=== PATIENT | male | born 1970 | race Caucasian/White ===

== ENCOUNTER 2021-11-14 10:43 | Outpatient (CLI) | payer OTHER, SELFPAY ==
[2021-11-14] MEDS: Inhaler, Assist Device 1 EACH MC (11:08)
[2021-11-14] MEDS: Albuterol HFA 18 GM 200 PUFF INH IH (11:08)
--- OUTSIDE RECORDS SUMMARY | 2021-11-16 10:45 | XMS_ITS | Encounter Summary ---
:1970 Author Organization [facility] [place] [address] Care Team Providers Name Role Phone Cresencio Angel DO Primary Care Provider Encounter Details Date Type Department Care Team Description 02/03/2019 Telephone Orthopaedics at [facility] [place] Sotelo, [employer] [place] [address] Social History Tobacco Use Types Packs/Day Years Used Date Former Smoker Cigarettes Quit: 02/07/20 Smokeless Tobacco: Former User Chew Q uit: 02/07/2004 Comments: 02/07/04 Alcohol Use Standard Drinks/Week Comments Not Currently 1 (1 standard drink = 0.6 oz pure alcoho l) very rarely Alcohol Habits Answer Date Recorded How often do you have a drink containing alcohol? Not asked How many drinks containing alcohol do you have on a Not aske d typical day when you are drinking? How often do you have six or more drinks on one occasion? No t asked Comment: very rarely 05/02/2018 Sex Assigned at Date Recorded Not on file documented as of this encounter Plan of Treatment Not on filedocumented as of this encounter Visit Diagnoses Not on filedocumented in this encounter Care Teams Brick Kiln Worker Relationship Specialty Start Date End Date Cresencio Angel DO PCP - General Internal Medicine 04/24/[address] [place] [id number] documented as of this encounter
--- OUTSIDE RECORDS SUMMARY | 2021-11-16 10:45 | XMS_ITS | Encounter Summary ---
:1970 Author Organization [facility] [place] [address] Care Team Providers Name Role Phone Cresencio Angel DO Primary Care Provider Encounter Details Date Type Department Care Team Description 07/26/2021 [place] [address] Social History Tobacco Use Types Packs/Day Years [...] on file documented as of this encounter Medications at Time of Discharge Medication Sig Dispensed Refills Start Date End Date clindamycin (Cleocin) 150 mg take 3 capsules 0 Capsule (450 MG) by mouth four times a day for 7 days for STAPH INFECTION metroNIDAZOLE (Flagyl) 500 mg take 4 tablets by 0 07/02/2019 Tablet mouth A ONE TIME DOSE RIGHT NOW meloxicam (MOBIC) 7.5 mg Take 1 tablet by 30 tablet 3 10/01 TabletIndications: Right mouth daily. ankle pain, unspecified chronicity, Arthritis of right ankle diclofenac (VOLTAREN) 1 % Apply 4 g 100 g 3 10/02/2019 GelIndications: Arthritis of topically 2 times right ankle daily as needed. HYDROcodone-acetaminophen Take 1 tablet by 20 tablet 0 12/10 (NORCO) 5-325 mg Tablet mouth every 6 hours as needed for Pain. prazosin (MINIPRESS) 1 mg Take 1 mg by mouth 0 Capsule nightly. acetaminophen (TYLENOL) 500 Take 1,000 mg by 0 mg Tablet mouth every 6 hours as needed for Pain. budesonide-formoterol Inhale into the 0 (SYMBICORT) 80-4.5 lungs. mcg/actuation HFA Aerosol Inhaler albuterol 90 mcg/actuation Inhale 2 puffs 0 HFA Aerosol Inhaler into the lungs every 4 hours as needed for Wheezing. Use with spacer omeprazole 20 mg Tablet, Take by mouth. 0 Delayed Release (E.C.) losartan (COZAAR) 50 mg Take 50 mg by 0 Tablet mouth daily. hydroCHLOROthiazide Take 25 mg by 0 (HYDRODIURIL) 25 mg Tablet mouth daily. documented as of this encounter Plan of Treatment Not on filedocumented as of this encounter Procedures Procedure Name Priority Date/Time Associated Diagnosis Comme [facility] SURGICAL PATHOLOGY Routine 07/26/2021 3:48 PM Res ults for this REPORT EDT procedure are i n the results section. documented in this encounter Results Surgical Pathology Report (07/26/2021 3:48 PM EDT) Component Value Ref Test Analysis Performed At [facility] Range Method Time Signature Surgical [id number] ? Location: [facility] Pathology [place] Report The signing pathologist has (i) examined the relevant preparation(s) for the [facility] specimen(s) and (ii) rendered or confirmed the diagnosis(es) . HOSPITAL LABORATORY . ?Surgic al Pathology DIAGNOSIS Left great toe, nail clippings: - ??Numerous PAS-positive fu ngal spore and hyphal forms, consistent with onychomycosis Electronically signed by: ?Gamaliel STRINGER, PhD, Elizabeth Verified: ??08/02/2021 15:13 ??Dermatopathologist Performed at: ??-[facility] [place], [place], [place] SPECIMEN(S) SUBMITTED A - left great toenail clippings Referring Identifier: ??[id number] CLINICAL INFORMATION Onychomycosis SPECIMEN PROCESSING A - Labeled/Fixative: Patient demographics, fresh. Quantity/Size: Fragments, aggregating 2.1 x 1.2 x 0.3 cm. Tissue Description: Granular, yellow-white nail clippings. Sections/Processing: Medical Receptionist Biller sections in 1 cassette labeled A1. ??pps Specimen (Source) Anatomical Collection Method Collection Time Re ceived Time Location / / Volume Laterality 07/26/2021 3:48 PM EDT Resulting Agency Comment Spec In Lab / WKS Becky Angulo DPM PATHOLOGY/CYTOLOGY ORDERABLE S Performing Organization Address City/State/[place] [address] documented in this encounter Visit Diagnoses Not on filedocumented in this encounter Care Teams Netbackup Engineer Relationship Specialty Start Date End Date Cresencio Angel DO PCP - General Internal Medicine 04/24/18 [address] [place] [address] documented as of this encounter
--- OUTSIDE RECORDS SUMMARY | 2021-11-16 10:45 | XMS_ITS | Encounter Summary ---
:1970 Author Organization [facility] [place] [address] Care Team Providers Name Role Phone Cresencio Angel DO Primary Care Provider Encounter Details Date Type Department Care Team Description 10/02/2019 Hospital Encounter XRay at [place] Cortney Egan S/P Right tib/fib osteotomy, ringed external fixator placement, 06/16/18 (Dr Egan); 1 [facility] [address] Reny MD Right ankle pain, unspecified chronicity [facility] [id number] [place] [phone] [place] [address] Social History Tobacco Use Types Packs/Day Years Used Date Former Smoker Cigarettes Quit: 02/07/20 04 Smokeless Tobacco: Former User Chew Q uit: [...] Procedure Name Priority Date/Time Associated Diagnosis Comme nts XR TIBIA FIBULA Routine 10/02/2019 8:31 AM S/P Right tib/fib R esults for this RIGHT EDT osteotomy, ringed procedure are in external fixator the results placement, 06/16/18 section. (Dr Egan) XR ANKLE MIN 3 Routine 10/02/2019 8:31 AM Right ankle pain, Re sults for this VIEWS RIGHT EDT unspecified procedure are i n chronicity the results section. documented in this encounter Results XR Ankle Min 3 views Right (Generic) (10/02/2019 8:31 AM EDT) Anatomical Region Laterality Modality Ankle Right Digital Radiography Specimen (Source) Anatomical Location Collection Method / Collectio n Time Received Time / Laterality Volume Impressions 10/02/2019 9:18 AM EDT 1. ??Unchanged appearance of healed tibial osteotomy, tibial fracture and fibular fractures. 2. ??Congruent ankle mortise and no larg e effusion. Thank you for letting us participate in the care of this patient. For questions regarding this report, please contact e number below. ? Narrative 10/02/2019 9:18 AM EDT EXAMINATION: XR ANKLE MIN 3 VIEWS RIGHT (GENERIC), XR TIBIA FIBULA RIGHT (GENERIC) CLINICAL HISTORY: right ankle pain s/p e x fix removal, , entered by ordering service TECHNIQUE: Right ankle, 3 (accession [id number]), 2 (accession [id number]) views Right tibia and fibula, 2 views COMPARISON: Tibial fibular radiographs, March 2019. FINDINGS: Bones * ??Tibia-history of corrective osteotom y for malunion of tibial fracture. The osteotomy line is completely obliterated . The deformity at the fracture site is unchanged. There are ghost screw tracts in distal tibial shaft. * ??Fibula-malunited proximal fibular sh aft fracture redemonstrated. * ??Calcaneus-irregular posterior superi or calcaneal tuberosity could be related to remote healed injury. Joints * ??Tibiotalar joint-congruent ankle mor tise. No large effusion. * ??Subtalar joint-relative preserved yanira int spaces. Soft tissues Unchanged multiple metallic bodies in th e proximal calf at humeral fracture sites. Soft tissue swelling in the calf and ankle. Procedure Note Danyell Perez MD - 10/02/2019Formatt ing of this note might be different from the original. EXAMINATION: XR ANKLE MIN 3 VIEWS RIGHT (GENERIC), XR TIBIA FIBULA RIGHT (GENERIC) CLINICAL HISTORY: right ankle pain s/p e x fix removal, , entered by ordering service TECHNIQUE: Right ankle, 3 (accession [id number]), 2 (accession [id number]) views Right tibia and fibula, 2 views COMPARISON: Tibial fibular radiographs, March 2019. FINDINGS: Bones * Tibia-history of corrective osteotomy for malunion of tibial fracture. The osteotomy line is completely obliterated . The deformity at the fracture site is unchanged. There are ghost screw tracts in distal tibial shaft. * Fibula-malunited proximal fibular shaf t fracture redemonstrated. * Calcaneus-irregular posterior superior calcaneal tuberosity could be related to remote healed injury. Joints * Tibiotalar joint-congruent ankle morti se. No large effusion. * Subtalar joint-relative preserved join t spaces. Soft tissues Unchanged multiple metallic bodies in th e proximal calf at humeral fracture sites. Soft tissue swelling in the calf and ankle. IMPRESSION 1. Unchanged appearance of healed tibial osteotomy, tibial fracture and fibular fractures. 2. Congruent ankle mortise and no large effusion. Thank you for letting us participate in the care of this patient. For questions regarding this report, please contact [facility] number below. Cortney Egan MD IMG DX ORDERABLES XR Tibia Fibula Right (Generic) (10/02/2019 8:31 AM EDT) Anatomical Region Laterality Modality Right Digital Radiography Specimen (Source) Anatomical Location Collection Method / Collectio n Time Received Time / Laterality Volume Impressions 10/02/2019 9:18 AM EDT 1. ??Unchanged appearance of healed tibial osteotomy, tibial fracture and fibular fractures. 2. ??Congruent ankle mortise and no larg e effusion. Thank you for letting us participate in the care of this patient. For questions regarding this report, please contact [facility] number below. ? Narrative 10/02/2019 9:18 AM EDT EXAMINATION: XR ANKLE MIN 3 VIEWS RIGHT (GENERIC), XR TIBIA FIBULA RIGHT (GENERIC) CLINICAL HISTORY: right ankle pain s/p e x fix removal, , entered by ordering service TECHNIQUE: Right ankle, 3 (accession [id number]), 2 (accession [id number]) views Right tibia and fibula, 2 views COMPARISON: Tibial fibular radiographs, March 2019. FINDINGS: Bones * ??Tibia-history of corrective osteotom y for malunion of tibial fracture. The osteotomy line is completely obliterated . The deformity at the fracture site is unchanged. There are ghost screw tracts in distal tibial shaft. * ??Fibula-malunited proximal fibular sh aft fracture redemonstrated. * ??Calcaneus-irregular posterior superi or calcaneal tuberosity could be related to remote healed injury. Joints * ??Tibiotalar joint-congruent ankle mor tise. No large effusion. * ??Subtalar joint-relative preserved yanira int spaces. Soft tissues Unchanged multiple metallic bodies in th e proximal calf at humeral fracture sites. Soft tissue swelling in the calf and ankle. Procedure Note Danyell Perez MD - 10/02/2019Formatt ing of this note might be different from the original. EXAMINATION: XR ANKLE MIN 3 VIEWS RIGHT (GENERIC), XR TIBIA FIBULA RIGHT (GENERIC) CLINICAL HISTORY: right ankle pain s/p e x fix removal, , entered by ordering service TECHNIQUE: Right ankle, 3 (accession [id number]), 2 (accession [id number]) views Right tibia and fibula, 2 views COMPARISON: Tibial fibular radiographs, March 2019. FINDINGS: Bones * Tibia-history of corrective osteotomy for malunion of tibial fracture. The osteotomy line is completely obliterated . The deformity at the fracture site is unchanged. There are ghost screw tracts in distal tibial shaft. * Fibula-malunited proximal fibular shaf t fracture redemonstrated. * Calcaneus-irregular posterior superior calcaneal tuberosity could be related to remote healed injury. Joints * Tibiotalar joint-congruent ankle morti se. No large effusion. * Subtalar joint-relative preserved join t spaces. Soft tissues Unchanged multiple metallic bodies in th e proximal calf at humeral fracture sites. Soft tissue swelling in the calf and ankle. IMPRESSION 1. Unchanged appearance of healed tibial osteotomy, tibial fracture and fibular fractures. 2. Congruent ankle mortise and no large effusion. Thank you for letting us participate in the care of this patient. For questions regarding this report, please contact [facility] number below. Cortney Egan MD IMG DX ORDERABLES documented in this encounter Visit Diagnoses Diagnosis S/P Right tib/fib osteotomy, ringed exte rnal fixator placement, 06/16/18 (Dr Egan) Right ankle pain, unspecified chronicity documented in this encounter Care Teams Handstitching Machine Collar Feller Relationship Specialty Start Date End Date Cresencio Angel DO PCP - General Internal Medicine 04/24/[address] [place] [address] documented as of this encounter
--- OUTSIDE RECORDS SUMMARY | 2021-11-16 10:45 | XMS_ITS | Encounter Summary ---
:1970 Author Organization [facility] [place] [address] Care Team Providers Name Role Phone Cresencio Angel DO Primary Care Provider Reason for Visit Reason Onset Date Comments Follow-up 10/05/2019 Encounter Details Date Type Department Care Team Description 10/05/2019 Telephone Orthopaedics at [facility] Cortney Egan MD Follow-up [facility] [place] [address] ORTHOPAEDIC SURGERY [phone] [place] [phone] (Wo rk) Social History Tobacco Use Types Packs/Day Years [...] on file documented as of this encounter Miscellaneous Notes Telephone Encounter - Scarlett Ridley - 10/09/2019 8:24 AM EDT Letter sent Telephone Encounter - Scarlett Ridley - 10/07/2019 10:43 AM EDT LM#2 for patient to return call to schedule 3 month follow up with [address]. Egan or Team around 01/02/2020. Dec 2019 with standing alignment and 3 view ankle xray WB (XRAY PRIOR) ? Ask if patient is going to proceed with fluoro injection and schedule if he is. Telephone Encounter - Scarlett Ridley - 10/05/2019 9:19 AM EDT LM#1 for patient to return call to schedule 3 month follow up with Dr. Egan or Team around 01/02/2020. Dec 2019 with standing alignment and 3 view ankle xray WB (XRAY PRIOR) Ask if patient is going to proceed with fluoro injection and schedule if he is. documented in this encounter Plan of Treatment Not on filedocumented as of this encounter Visit Diagnoses Not on filedocumented in this encounter Care Teams Communications Maintainer Relationship Specialty Start Date End Date Cresencio Angel DO PCP - General Internal Medicine 04/24/18 [address] [place] [address] documented as of this encounter
--- OUTSIDE RECORDS SUMMARY | 2021-11-16 10:45 | XMS_ITS | Encounter Summary ---
:1970 Author Organization [facility] Address [facility] [address] [place] [address] Care Team Providers Name Role Phone Cresencio Angel DO Primary Care Provider Reason for Referral Physical Therapy (Routine) - Specialty Diagnoses / Procedures Referred By Contact Refer red To Contact Diagnoses Tibia/fibula fracture, right, open type III, with malunion, subsequent encounter Concetta Hull PA [facility] [place] [address] Referral ID Status Reason Start Date Expiration Date Visits V isits Requested Authorized [id number] Evaluate and 04/03/2019 09/30/2019 1 1 Treat PCP Updated and/or Approved Reason for Visit Reason Comments Left Leg Fracture Removal right tibia external fixator DOS 01/01/2019 DOI 02/07/2004 Encounter Details Date Type Department Care Team Description 04/03/2019 Office Visit Orthopaedics at [facility] [place] Concetta Hull Tibia/fibula [facility] [place] fracture, right, open [address] [employer] type III, [place] [address] arango, subsequent [phone] ORTHOPAEDIC encounter SURGERY [place], [place] [address] Social History Tobacco Use Types Packs/Day Years [...] on file documented as of this encounter Last Filed Vital Signs Vital Sign Reading Time Taken Comments Blood Pressure 129/87 04/03/2019 9:12 AM EST Pulse 69 04/03/2019 9:12 AM EST Temperature - - Respiratory Rate - - Oxygen Saturation - - Inhaled Oxygen Concentration - - Weight 97.5 kg (215 lb) 04/03/2019 9:12 AM EST pt repor dwain Height 172.7 cm (5' 8) 04/03/2019 9:12 AM EST pt repor dwain Body Mass Index 32.69 04/03/2019 9:12 AM EST documented in this encounter Progress Notes Concetta Hull PA - 04/03/2019 9:30 AM EST PATIENT NAME: Sravan Ching AGE: 48 y.o. MR#: [id number] DATE OF VISIT: 04/03/2019 CHIEF COMPLAINT: FU 06/16/18 tib fib osetotomy, external fixator application 01/01/19 Procedure: Removal right tibia external fixator Manipulation right ankle Corticosteroid injection right knee HISTORY OF PRESENT ILLNESS: Mr. Ching is a 48 y.o. male who comes into clinic today for evaluation of the right leg. He was last in to see Dr. Egan in January. Since this time [facility] Unfortunately this is only once per week. He continues to be very limited with hisability to dorsiflex. He is waiting to hear from our clinic regarding the ideal brace. He has physical therapist is wanting to have him start using a Dynasplint at night to help with his dorsiflexion. He feels that his gait is a bit off. He is very happy with his leg appearance. He is impressed with the length of his leg. It even feels a bit longer than the left. Past medical history: Patient Active Problem List Diagnosis Date Noted ??? Tibial deformity, acquired, right 06/16/2018 ??? S/P Right tib/fib osteotomy, ringed external fixator placement, 06/16/18 (Dr Egan) 06/16/2018 ??? Tibia/fibula fracture, right, open type III, with malunion, subsequent encounter 05/02/2018 Medications: ??? HYDROcodone-acetaminophen (NORCO) 5-325 mg Tablet ??? prazosin (MINIPRESS) 1 mg Capsule ??? budesonide-formoterol (SYMBICORT) 80-4.5 mcg/actuation HFA Aerosol Inhaler ??? albuterol 90 mcg/actuation HFA Aerosol Inhaler ??? omeprazole 20 mg Tablet, Delayed Release (E.C.) ??? losartan (COZAAR) 50 mg Tablet ??? hydroCHLOROthiazide (HYDRODIURIL) 25 mg Tablet ??? acetaminophen (TYLENOL) 500 mg Tablet Allergies: No Known Allergies Social history: Social History Tobacco Use ??? Smoking status: Former Smoker Types: Cigarettes Last attempt to quit: 02/07/2004 Years since quittin.1 ??? Smokeless tobacco: Former User Types: Chew Quit date: 02/07/2004 ??? Tobacco comment: 02/07/04 Substance Use Topics ??? Alcohol use: Not Currently Alcohol/week: 1.0 standard drinks Types: 1 Shots of liquor per week Comment: very rarely Review of systems: No chest pain or shortness of breath No fevers, night sweats or chills Vital signs: Blood pressure 129/87, pulse 69, height 172.7 cm (5' 8), weight 97.5 kg (215 lb). Physical exam: Mr. Ching is a 48 y.o. male who is alert and oriented. He is in no acute discomfort and is resting comfortably in the exam room. No erythema, edema, ecchymosis noted. Ankle Plantar flexion 40?? Dorsiflexion 0 actively, passively 5 shy of neutral. ?? Inversion 5?? Eversion 5?? PT/DP pulses 2+. Superficial peroneal, deep peroneal, sural, saphenous, and tibial nerves intact to touch. Imaging studies: X-ray of the left tib-fib were obtained and compared with prior. No change in alignment since previous. I am able to now appreciate a subtle lucency in the area of the fibula fracture. The distal tib-fib has continued to sclerosis. No complication noted. Assessment and plan:: 48 y.o. year-old male post right tib fib osteotomy, with continued struggle with ROM We had a long discussion regarding the nature of Sravan Ching's chief complaint. We reviewed the imaging together X-ray of the left tib-fib were obtained and compared with prior. No change in alignment since previous. I am able to now appreciate a subtle lucency in the area of the fibula fracture. The distal tib-fib has continued to sclerosis. No complication noted. Clinically Sravan Ching skin looks excellent. His ankle range of motion is still limited. He is not able to actively dorsiflex at all. Passively I am only able to get him to 5 degrees shy of neutral. I would like him to increase his physical therapy sessions as he is currently only participating once per week. He is more than willing to attend more PT and would like a separate PT referral so he can [facility] as they are limited in the amount of time that they are able to see him. He will continue seeing his current [place] physical therapist as well as physical [facility]. I have written him a prescription for the dynamic splint as well as the ideal brace. Given him a packet for the ideal brace. I will be discussing this with Dr. gonzalez and we will send a letter to Sravan describing the medical necessity of the ideal brace. We discussed to follow-up in roughly 3 months no x-rays needed. This plan was discussed with the patient and they are in agreement. All of the patient's questions were answered. The patient understand to contact us if they have any other questions or concerns. FU: 3 months, no x-ray Concetta Hull PA-C The above dictation was made with voice recogonition software documented in this encounter Plan of Treatment Scheduled Referrals Name Type Priority Associated Diagnoses Order S chedule Referral to Outpatient Referral Routine Tibia/fibula Ordered: Physical Therapy fracture, right, 020 open type III, with malunion, subsequent encounter documented as of this encounter Visit Diagnoses Diagnosis Tibia/fibula fracture, right, open type III, with malunion, subsequent encounter documented in this encounter Care Teams Range Aide Relationship Specialty Start Date End Date Cresencio Angel DO PCP - General Internal Medicine 04/24/[address] [place] [address] documented as of this encounter
--- OUTSIDE RECORDS SUMMARY | 2021-11-16 10:45 | XMS_ITS | Clinical Summary ---
:1970 Author Organization [facility] [place] [address] Care Team Providers Name Role Phone Cresencio Angel DO Primary Care Provider Allergies No known active allergies Medications Medication Sig Dispensed Refills Start Date End Date Status budesonide-formoterol Inhale into 0 Active (SYMBICORT) 80-4.5 the lungs. mcg/actuation HFA Aerosol Inhaler albuterol 90 mcg/actuation Inhale 2 0 Active HFA Aerosol Inhaler puffs into the lungs every 4 hours as needed for Wheezing. Use with spacer omeprazole 20 mg Tablet, Take by 0 Active Delayed Release (E.C.) mouth. losartan (COZAAR) 50 mg Take 50 mg by 0 Active Tablet mouth daily. hydroCHLOROthiazide Take 25 mg by 0 Active (HYDRODIURIL) 25 mg Tablet mouth daily. acetaminophen (TYLENOL) 500 Take 1,000 mg 0 Active mg Tablet by mouth every 6 hours as needed for Pain. prazosin (MINIPRESS) 1 mg Take 1 mg by 0 Active Capsule mouth nightly. HYDROcodone-acetaminophen Take 1 tablet 20 tablet 0 01/01/2019 Active (NORCO) 5-325 mg Tablet by mouth every 6 hours as needed for Pain. Additional Information Patient taking differently: 1 tablet Oral EVERY 6 HOURS PRN, Pain, 7.5-325, Reported on 01/16/2019 clindamycin (Cleocin) 150 mg take 3 capsules (450 MG) 0 08/14/2019 Active Capsule by mouth four times a day for 7 days for STAPH INFECTION metroNIDAZOLE (Flagyl) 500 mg take 4 tablets by mouth 0 07/02/2019 Active Tablet A ONE TIME DOSE RIGHT NOW meloxicam (MOBIC) 7.5 mg Take 1 tablet by mouth 30 tablet 3 Active TabletIndications: Right daily. ankle pain, unspecified chronicity, Arthritis of right ankle diclofenac (VOLTAREN) 1 % Apply 4 g topically 2 100 g 3 Active GelIndications: Arthritis of times daily as needed. right ankle Active Problems Problem Noted Date Tibial deformity, acquired, right 06/16/2018 S/P Right tib/fib osteotomy, ringed external fixator p lacement, 06/16/18 ( 06/16/2018 Julisa) Tibia/fibula fracture, right, open type III, with darya nion, subsequent 05/02/2018 encounter Family History Medical History Relation Comments No Known Problems Brother Hypertension Father No Known Problems Sister Cancer Neg Hx Diabetes Neg Hx Relation Status Comments Brother Alive Father Alive Mother liver issues Sister Alive Social History Tobacco Use Types Packs/Day Years [...] Assigned at Date Recorded Not on file Last Filed Vital Signs Vital Sign Reading Time Taken Comments Blood Pressure 132/83 10/02/2019 9:37 AM EDT Pulse 68 10/02/2019 9:37 AM EDT Temperature 36.4 ??C (97.6 ??F) 01/16/2019 9:25 AM EST Respiratory Rate 16 01/01/2019 8:11 AM EDT Oxygen Saturation 100% 01/01/2019 5:55 AM EDT Inhaled Oxygen Concentration - - Weight 108.1 kg (238 lb 4.8 oz) 10/02/2019 9:37 AM EDT Height 172.7 cm (5' 8) 10/02/2019 9:37 AM EDT Body Mass Index 36.23 10/02/2019 9:37 AM EDT Plan of Treatment Health Maintenance Due Date Last Done Comments Covid-19 Vaccine (#1) 12/27/1975 HIV screen 1988 Hepatitis C Screening 1988 Lipid Screening 1988 Tdap adult 1989 Tetanus vaccine 1989 Colonoscopy 12/27/2015 Zoster vaccine (1 of 2) 2020 Diabetes Screening (HgbA1C or Glucose) 06/17/2021 9 Influenza (Flu) vaccine (1 of 1 - Influenza standard 11/09/2021 series) Medical Devices Implanted Type Area Supervisor Fishing Device Identifier Shelf Exp iration Model / Date Serial / L ot Center Sleeve For 6mm Half Pin [id number] / Implanted: Qty: 2 on 06/16/2018 by Cortney Egan MD at [facility] / Insurance Payer Benefit Plan / Subscriber ID Effective Dates Phone Addre ss Type Group [facility] [id number] 2018-Pres [id number] [address] [id number] ent [address] [place] [address] [employer]UM [place] [employer] [id number] 2018-Pres [phone] [address] [facility] [id number] [place] [address] Advance Directives Latest Code Status on File Code Status Date Activated Date Inactivated Comments Full Code 06/16/2018 6:14 AM 06/18/2018 7:01 PM Does patient have capacity to make decision: Yes Care Teams Pediatric Physician Assistant Relationship Specialty Start Date End Date Cresencio Angel, DO PCP - General Internal Medicine 04/24/18 [address] [place] [address]
--- OUTSIDE RECORDS SUMMARY | 2021-11-16 10:45 | XMS_ITS | Encounter Summary ---
:1970 Author Organization [facility] [place] [address] Care Team Providers Name Role Phone Cresencio Angel DO Primary Care Provider Encounter Details Date Type Department Care Team Description 02/18/2019 Telephone [place] [facility] [place] [address] Social History Tobacco Use Types Packs/Day [...] this encounter Miscellaneous Notes Telephone Encounter - Serena Sotelo MSW - 02/18/2019 10:48 AM EST OFFICE OF CARE MANAGEMENT CCM Per Dr. Kumar referral for patient to receive an Exosym brace from the [facility] [phone]. They note there is not coverage for brace through his [employer]. Update to Mr. Ching who reports he is 100% service connected disabilty and believes [facility] will [facility] agreed I will contact [facility]. left for Rosa in prosthetics at [facility] [phone] with details and patient's last 4 and requesting return call to orient to process and potential for her to fax order to [facility] fax [phone] who will then evaluate patient and arrange w [facility] for purchase order. PLAN: 1) update to patient and healthcare team pending re contact from [facility]. documented in this encounter Plan of Treatment Not on filedocumented as of this encounter Visit Diagnoses Not on filedocumented in this encounter Care Teams Tire Rebuilder Relationship Specialty Start Date End Date Cresencio Angel DO PCP - General Internal Medicine 04/24/[address] [place] [phone] documented as of this encounter
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
--- OUTSIDE RECORDS SUMMARY | 2021-11-16 10:45 | XMS_ITS | Encounter Summary ---
:1970 Author Organization [facility] Address [facility] [address] Care Team Providers Name Role Phone Stanley Cresencio Jose Eduardo MORA Primary Care Provider Encounter Details Date Type Department Care Team Description 09/29/2019 Orders Only Orthopaedics at [facility] Cortney Egan, S/P Right tib/fib [facility] MD osteotomy, ringed [facility] external fixator [place] [id number] blakely, 06/16/18 ( [phone] ORTHOPAEDIC [place]) SURGERY [place], [place] [address] Social History Tobacco Use Types [...] filedocumented as of this encounter Results XR Tibia Fibula Right (Generic) (10/02/2019 8:31 [...] please contact th e number below. ? Electronically signed by: Danyell Perez [facility] ([phone]), at 10/02/2019 9:18 AM Narrative 10/02/2019 9:18 AM EDT EXAMINATION: XR ANKLE MIN 3 VIEWS RIGHT (GENERIC), XR TIBIA FIBULA RIGHT (GENERIC) CLINICAL HISTORY: right ankle pain s/p e x fix removal, , entered by ordering service TECHNIQUE: Right ankle, 3 (accession [id number]), 2 (accession [id number]) views Right tibia and fibula, 2 views [...] ankle, 3 (accession [id number]), 2 (accession [id number]) views Right tibia and fibula, 2 views [...] For questions regarding this report, please contact [facility] number below. Electronically signed by: Danyell Perez [facility] ([phone]), at 10/02/2019 9:18 AM Cortney Egan MD IMG DX ORDERABLES documented in this encounter Visit Diagnoses Diagnosis S/P Right tib/fib osteotomy, ringed exte rnal fixator placement, 06/16/18 (Dr Egan) S/P Right tib/fib osteotomy, ringed exte rnal fixator placement, 06/16/18 (Dr Egan) Right ankle pain, unspecified chronicity documented in this encounter Care Teams Lead Burner Supervisor Relationship Specialty Start Date End Date Cresencio Angel DO PCP - General Internal Medicine 04/24/[address] [place] [id number] documented as of this encounter
--- OUTSIDE RECORDS SUMMARY | 2021-11-16 10:45 | XMS_ITS | Encounter Summary ---
:1970 Author Organization [facility] Address [facility] [place] [address] Care Team Providers Name Role Phone Cresencio Angel DO Primary Care Provider Encounter Details Date Type Department Care Team Description 04/03/2019 Hospital Encounter XRay [place] [facility] [place]isa, Cortney Tibia/fibula [address] [facility] [address] Reny MD fracture, right, [place], [place] [facility] open type III, with [phone] arango, subsequent [phone] ORTHOPAEDIC [place] [address] Social History Tobacco Use Types Packs/Day Years [...] Sig Dispensed Refills Start Date End Date HYDROcodone-acetaminophen Take 1 tablet by 20 tablet 0 12/10 (NORCO) 5-325 mg Tablet mouth every 6 hours as needed for Pain. prazosin (MINIPRESS) 1 mg Take 1 mg by 0 Capsule mouth nightly. acetaminophen (TYLENOL) 500 mg Take 1,000 mg by 0 Tablet mouth every 6 hours as needed for Pain. budesonide-formoterol Inhale into the 0 (SYMBICORT) 80-4.5 lungs. mcg/actuation HFA Aerosol Inhaler albuterol 90 mcg/actuation HFA Inhale 2 puffs 0 Aerosol Inhaler into the lungs every 4 hours as needed for Wheezing. Use with spacer omeprazole 20 mg Tablet, Take by mouth. 0 Delayed Release (E.C.) losartan (COZAAR) 50 mg Tablet Take 50 mg by 0 mouth daily. hydroCHLOROthiazide Take 25 mg by 0 (HYDRODIURIL) 25 mg Tablet mouth daily. documented as of this encounter Plan of Treatment Not on filedocumented as of this encounter Procedures Procedure Name Priority Date/Time Associated Diagnosis Comme nts XR TIBIA FIBULA Routine 04/03/2019 8:41 AM Tibia/fibula Result s for this RIGHT EST fracture, right, procedure a re in open type III, with the resu lts malunion, subsequent section . encounter documented in this encounter Results XR Tibia Fibula Right (Generic) (04/03/2019 8:41 AM EST) Anatomical Region Laterality Modality Right Digital Radiography Specimen (Source) Anatomical Location Collection Method / Collectio n Time Received Time / Laterality Volume Impressions 04/03/2019 9:09 AM EST Interval progression in healing, without change in alignment. Thank you for letting us participate in the care of this patient. For questions regarding this report, please contact e number below. ? Narrative 04/03/2019 9:09 AM EST EXAMINATION: XR TIBIA FIBULA RIGHT (GENERIC) CLINICAL HISTORY: s/p right tib fx TECHNIQUE: 2 views RIGHT tibia and fibula COMPARISON: 01/16/2019 FINDINGS: Continued healing of the proximal tibial and fibular osteotomies, which remain in unchanged alignment. Stable posttraum atic deformities of the mid tibial and fibular diaphyses, with metallic foreign bodies in the soft tissues. Ghost screw tracks from external fixator are redemon strated in the proximal and distal tibia and fibula. Procedure Note Yaneth Huynh MD - 04/03/2019Formatt ing of this note might be different from the original. EXAMINATION: XR TIBIA FIBULA RIGHT (GENE ZOHAIB) CLINICAL HISTORY: s/p right tib fx TECHNIQUE: 2 views RIGHT tibia and fibula COMPARISON: 01/16/2019 FINDINGS: Continued healing of the proximal tibial and fibular osteotomies, which remain in unchanged alignment. Stable posttraum atic deformities of the mid tibial and fibular diaphyses, with metallic foreign bodies in the soft tissues. Ghost screw tracks from external fixator are redemon strated in the proximal and distal tibia and fibula. IMPRESSION Interval progression in healing, without change in alignment. Thank you for letting us participate in the care of this patient. For questions regarding this report, please contact e number below. Cortney Egan MD IMG DX ORDERABLES documented in this encounter Visit Diagnoses Diagnosis Tibia/fibula fracture, right, open type III, with malunion, subsequent encounter documented in this encounter Care Teams Veneer Jointer Offbearer Relationship Specialty Start Date End Date Cresencio Angel DO PCP - General Internal Medicine 04/24/[address] [place] [id number] documented as of this encounter
--- OUTSIDE RECORDS SUMMARY | 2021-11-16 10:46 | XMS_ITS | Encounter Summary ---
:1970 Author Organization [facility] [place] [address] Care Team Providers Name Role Phone Cresencio Angel DO Primary Care Provider Encounter Details Date Type Department Care Team Description 01/16/2019 Hospital En[place] [facility] [place], Cortney Tibia/fibula fracture, right , open type III, with malunion, subsequent encounter; 1 [facility] Dr Reny MD S/P Right tib/fib osteotomy, ringed exte rnal fixator placement, 06/16/18 (Dr Egan) [facility] [id number] [place] [phone] [place] [address] Social History Tobacco Use Types Packs/Day Years [...] 0 Capsule mouth nightly. acetaminophen (TYLENOL) 500 Take 1,000 mg [...] 0 (HYDRODIURIL) 25 mg Tablet mouth daily. gabapentin (NEURONTIN) 300 Take 1 capsule 90 capsule 3 08/2904/03/2019 mg Capsule by mouth 3 times daily. documented as of this encounter Plan of Treatment Not on filedocumented as of this encounter Procedures Procedure Name Priority Date/Time Associated Diagnosis Comme nts XR TIBIA FIBULA Routine 01/16/2019 9:11 AM Tibia/fibula Result s for this RIGHT EST fracture, right, procedure a re in open type III, with the resu lts malunion, subsequent section . encounter S/P Right tib/fib osteotomy, ringed external fixator placement, 06/16/18 (Dr Egan) documented in this encounter Results XR Tibia Fibula Right (Generic) (01/16/2019 9:11 AM EST) Anatomical Region Laterality Modality Right Digital Radiography Specimen (Source) Anatomical Location Collection Method / Collectio n Time Received Time / Laterality Volume Impressions 01/16/2019 10:36 AM EST Tibial and fibular osteotomies are in unchanged alignment and demonstrate progression in healing. There has been i nterval removal of the external fixator. Thank you for letting us participate in the care of this patient. For questions regarding this report, please contact e number below. ? Narrative 01/16/2019 10:36 AM EST EXAMINATION: XR TIBIA FIBULA RIGHT (GENERIC) CLINICAL HISTORY: S/P ex fix removal TECHNIQUE: 2 views RIGHT tibia and fibula COMPARISON: 12/12/2018 FINDINGS: There has been interval removal of the e xternal fixator and ghost screw tracks are seen in the proximal and distal tibi a and fibula. Tibial and fibular osteotomies are in unchanged alignment, and demonstrate some progression in healing. Again demonstrated are the post traumatic deformities of the mid tibial and fibular diaphyses, along with metall ic foreign bodies in the soft tissues. Procedure Note Yaneth Huynh MD - 01/16/2019Formatt ing of this note might be different from the original. EXAMINATION: XR TIBIA FIBULA RIGHT (GENE ZOHAIB) CLINICAL HISTORY: S/P ex fix removal TECHNIQUE: 2 views RIGHT tibia and fibula COMPARISON: 12/12/2018 FINDINGS: There has been interval removal of the e xternal fixator and ghost screw tracks are seen in the proximal and distal tibi a and fibula. Tibial and fibular osteotomies are in unchanged alignment, and demonstrate some progression in healing. Again demonstrated are the post traumatic deformities of the mid tibial and fibular diaphyses, along with metall ic foreign bodies in the soft tissues. IMPRESSION Tibial and fibular osteotomies are in un changed alignment and demonstrate progression in healing. There has been i nterval removal of the external fixator. Thank you for letting us participate in the care of this patient. For questions regarding this report, please contact e number below. Cortney Egan MD IMG DX ORDERABLES documented in this encounter Visit Diagnoses Diagnosis Tibia/fibula fracture, right, open type III, with malunion, subsequent encounter S/P Right tib/fib osteotomy, ringed exte rnal fixator placement, 06/16/18 (Dr Egan) documented in this encounter Care Teams Store Hand Relationship Specialty Start Date End Date Cresencio Angel, PCP - General Internal Medicine 04/24/[address] [place] [address] documented as of this encounter
--- OUTSIDE RECORDS SUMMARY | 2021-11-16 10:46 | XMS_ITS | Encounter Summary ---
:1970 Author Organization [facility] Address [address] [place] [address] Care Team Providers Name Role Phone Cresencio Angel DO Primary Care Provider Encounter Details Date Type Department Care Team Description 11/14/2018 Orders Only Orthopaedics at [facility] Cortney Egan, Tibia/fibula [facility] MD fracture, right, open Drive [facility] type III, [place] [address] [address] arango, subsequent [phone] ORTHOPAEDIC encounter SURGERY [place] [id number] Social History Tobacco Use Types Packs/Day Years [...] encounter Results XR Tibia Fibula Right (Generic) (11/14/2018 10:26 AM EDT) Anatomical Region Laterality Modality Right Digital Radiography Specimen (Source) Anatomical Location Collection Method / Collectio n Time Received Time / Laterality Volume Impressions 11/14/2018 2:54 PM EDT Increased bone formation. No change in alignment or fixation. Thank you for letting us participate in the care of this patient. For questions regarding this report, please contact e number below. ? Electronically signed by: Wes henley [facility] ([phone]), at 11/14/2018 2:54 PM Narrative 11/14/2018 2:54 PM EDT EXAMINATION: XR TIBIA FIBULA RIGHT (GENERIC) CLINICAL HISTORY: right tib fib ex fix TECHNIQUE: 2 views RIGHT tibia and fibula COMPARISON: 08/29/2018 FINDINGS: External fixation of the lower leg is un changed as is the alignment. There is increased bone formation in the proximal distraction site of the tibia Procedure Note Wes Winkler MD - 11/14/2018Forma tting of this note might be different from the original. EXAMINATION: XR TIBIA FIBULA RIGHT (GENE ZOHAIB) CLINICAL HISTORY: right tib fib ex fix TECHNIQUE: 2 views RIGHT tibia and fibula COMPARISON: 08/29/2018 FINDINGS: External fixation of the lower leg is un changed as is the alignment. There is increased bone formation in the proximal distraction site of the tibia IMPRESSION Increased bone formation. No change in a lignment or fixation. Thank you for letting us participate in the care of this patient. For questions regarding this report, please contact e number below. Electronically signed by: Wes henley [facility] ([phone]), at 11/14/2018 2:54 PM Cortney Egan MD IMG DX ORDERABLES documented in this encounter Visit Diagnoses Diagnosis Tibia/fibula fracture, right, open type III, with malunion, subsequent encounter Tibia/fibula fracture, right, open type III, with malunion, subsequent encounter documented in this encounter Care Teams Photograph Editor Relationship Specialty Start Date End Date Cresencio Angel DO PCP - General Internal Medicine 04/24/[address] [place] [address] documented as of this encounter
--- OUTSIDE RECORDS SUMMARY | 2021-11-16 10:46 | XMS_ITS | Encounter Summary ---
:1970 Author Organization [facility] [address] Care Team Providers Name Role Phone Cresencio Angel DO Primary Care Provider Reason for Referral Physical Therapy (Routine) - Specialty Diagnoses / Procedures Referred By Contact Refer red To Contact Diagnoses Status post osteotomy Cortney Egan MD [facility] D [place] [address] Referral ID Status Reason Start Date Expiration Date Visits V isits Requested Authorized [id number] Evaluate and 11/14/2018 05/13/2019 12 12 Treat Non PCP Reason for Visit Reason Comments Follow-up R ostotomy tibia and fib Encounter Details Date Type Department Care Team Description 11/14/2018 Office Visit Orthopaedics at [facility] [place] Cortney Egan, S/P Right tib/fib [facility] osteotomy, ringed Drive [facility] [place] [address] blakely, 06/16/18 ORTHOPAEDIC [facility]) SURGERY [place], [place] [address] Social History Tobacco Use Types [...] Sign Reading Time Taken Comments Blood Pressure 136/93 11/14/2018 10:40 AM EDT Pulse 104 11/14/2018 10:40 AM EDT Temperature - - Respiratory Rate - - Oxygen Saturation - - Inhaled Oxygen Concentration - - Weight - - Height - - Body Mass Index - - documented in this encounter Progress Notes Cortney Egan MD - 11/14/2018 11:00 AM EDT Sravan Ching returns in follow-up s/p tib/fib osteotomy and deformity correction/limb lengthening.He has been working on advancing weight-bearing, doing well. Still using 1 or 2 crutches. [facility] FollowUp 11/14/2018 Health in general Very Good Quality of life Very Good Physical health Very Good Mental health Very Good Satisfaction with social activities Very Good Ability to carry out physical activities Moderately Rate of pain 3 Rate of fatigue Moderate Ability to carry out social activities Very Good Bothered by emotional problems Sometimes PROMIS PHYSICAL HEALTH SCORE 44.9 PROMIS MENTAL HEALTH SCORE 50.8 Gone to ER since knee surgery No Admitted to hospital since knee surgery No Additional surgery on same knee No Employment status before injury Currently working Returned to previous employment No Spending time in inpatient rehab facility No Rate overall condition today 7 Physical Exam- In general a well developed well nourished male in no apparent distress. Examination of the leg reveals the incision is clean dry and intact, well-healed. EHL/FHL/TA/GC are intact. Capillary refill is < 3 seconds. Sensation is intact. He is able to stand on both legs, still pain withfull weigth. Radiographs- xray shows the hardware is intact. Alignment is maintained. Distraction site is still filling in. Assessment and Plan- Sravan Ching is a 47 y.o. male who returns in follow-up s/p deformity correction with a circular frame. One of the fine wires distally has been draining and he did want to removethis in clinic. This was done under sterile conditions. He should continue to advance his weight-bearing. We discussed that he has to be able to ambulate without an assitive device Before the frame cancome off. He will continue to work on this with PT. He also needs new crutches as his crutches are falling apart. He will follow-up in 4-6 weeks. Reny Egan MD Department of Orthopaedic Surgery 11/14/18 documented in this encounter Plan of Treatment Scheduled Referrals Name Type Priority Associated Diagnoses Order S chedule Referral to Outpatient Referral Routine S/P Right tib/fib Ord ered: Physical Therapy osteotomy, ringed 2018 external fixator placement, 06/16/18 (Dr Egan) documented as of this encounter Visit Diagnoses Diagnosis S/P Right tib/fib osteotomy, ringed exte rnal fixator placement, 06/16/18 (Dr Egan) documented in this encounter Care Teams Lead Business Analyst Relationship Specialty Start Date End Date Cresencio Angel DO PCP - General Internal Medicine 04/24/18 [address] [place] [address] documented as of this encounter
--- OUTSIDE RECORDS SUMMARY | 2021-11-16 10:46 | XMS_ITS | Encounter Summary ---
:1970 Author Organization [facility] [place] [address] Care Team Providers Name Role Phone Cresencio Angel DO Primary Care Provider Encounter Details Date Type Department Care Team Description 01/16/2019 Telephone [place] [facility] [place]ney Egan [place] [facility] [place] [address] ORTHOPAEDIC SURGERY [phone] [place], [place] [address] (Wo rk) Social History Tobacco Use Types [...] on filedocumented in this encounter Care Teams Green Chain Worker Relationship Specialty Start Date End Date Cresencio Angel DO PCP - General Internal Medicine 04/24/[address] [place] [address] documented as of this encounter
--- OUTSIDE RECORDS SUMMARY | 2021-11-16 10:46 | XMS_ITS | Encounter Summary ---
:1970 Author Organization [facility] Address [facility] [address] [place] [address] Care Team Providers Name Role Phone Stanley Cresencio Jose Eduardo MORA Primary Care Provider Reason for Visit Reason Comments Follow-up T Osteotomy of Tibia & Fibul a , DOS 4.8.19 Encounter Details Date Type Department Care Team Description 12/12/2018 Office Visit Orthopaedics at [facility] Julisa, Cortney Oglesby, S/P Right tib/fib [facility] osteotomy, ringed [place] [address] blakely, 06/16/18 ( [phone] [facility] SURGERY [place], [place] [address] Social History Tobacco Use Types [...] Sign Reading Time Taken Comments Blood Pressure 137/88 12/12/2018 8:24 AM EDT Pulse 71 12/12/2018 8:24 AM EDT Temperature - - Respiratory Rate - - Oxygen Saturation - - Inhaled Oxygen Concentration - - Weight 99.8 kg (220 lb) 12/12/2018 8:24 AM EDT verbal Height - - Body Mass Index 34.46 07/30/2018 2:05 PM EDT documented in this encounter Progress Notes Cortney Alvarez MD - 12/12/2018 8:40 AM EDT Sravan Ching returns in follow-up s/p deformity correction with a circular frame. He reports he isdoing well. Continues to work with PT. He is walking with the assistance of only a cane and is very excited to get the frame off. [facility] FollowUp 12/12/2018 Health in general Good Quality of life Good Physical health Good Mental health Good Satisfaction with social activities Good Ability to carry out physical activities Moderately Rate of pain 4 Rate of fatigue Moderate Ability to carry out social activities Fair Bothered by emotional problems Sometimes PROMIS PHYSICAL HEALTH SCORE 39.8 PROMIS MENTAL HEALTH SCORE 43.5 Gone to ER since knee surgery No Admitted to hospital since knee surgery No Additional surgery on same knee No Employment status before injury Disabled and/or retired because of ill health Returned to previous employment No Spending time in inpatient rehab facility No Rate overall condition today 7 Physical Exam- In general a well developed well nourished male in no apparent distress. Examination of the leg reveals the incisions are all well healed, half pin sites are clean. There is a bit of erythema around his one remaining fine wire proximally. EHL/FHL/TA/GC are intact. Capillary refill is < 3 seconds. Sensation is intact. Radiographs- xray shows the hardware is intact. Alignment is maintained. Fracture is healing Assessment and Plan- Sravan Ching is a 47 y.o. male who returns in follow-up s/p frame-assisted deformity correction surgery. He reports he is doing well. He is mobilizing well with the use of only acane. Since his fine wire is bothering him he did prefer to have it removed in clinic. This was performed under sterile conditions. I did also remove one strut to dynamize his frame. Will plan for removal of ex fix in 2-3 weeks. Reny Alvarez MD Department of Orthopaedic Surgery 12/12/18 documented in this encounter Miscellaneous Notes Addendum Note - Cortney Alvarez MD - 12/12/2018 8:40 AM EDT Addended by: CORTNEY ALVAREZ on: 12/12/2018 09:40 AM Modules accepted: Orders documented in this encounter Plan of Treatment Not on filedocumented as of this encounter Procedures Procedure Name Priority Date/Time Associated Diagnosis Comme nts EXTERNAL FIXATION Routine 12/12/2018 9:40 AM EDT S/P Right tib /fib REMOVAL, LOWER osteotomy, ringed EXTREMITY external fixator placement, 06/16/18 (Dr Alvarez) documented in this encounter Visit Diagnoses Diagnosis S/P Right tib/fib osteotomy, ringed exte rnal fixator placement, 06/16/18 (Dr Alvarez) documented in this encounter Care Teams Controls Engineer Relationship Specialty Start Date End Date Cresencio Angel DO PCP - General Internal Medicine 04/24/[address] [place] [address] documented as of this encounter
--- OUTSIDE RECORDS SUMMARY | 2021-11-16 10:46 | XMS_ITS | Encounter Summary ---
:1970 Author Organization [facility] [place] [address] Care Team Providers Name Role Phone Stanley Cresencio Whitt Primary Care Provider Reason for Visit Reason Onset Date Comments Questions 10/09/2018 Encounter Details Date Type Department Care Team Description 10/09/2018 Telephone Orthopaedics at [facility] Concetta Hull PA Questions [facility] D rive [facility] [place] [address] ORTHOPAEDIC SURGERY [phone] [place] [id number] (Wo rk) Social History Tobacco Use Types [...] this encounter Miscellaneous Notes Telephone Encounter - Vannesa Stanley RMA - 10/09/2018 3:15 PM EDT Sravan called and is requesting a phone call from Aminata Hull PA-C. He can be reached at [phone]. Sravan stated that this is important and time sensitive. documented in this encounter Plan of Treatment Not on filedocumented as of this encounter Visit Diagnoses Not on filedocumented in this encounter Care Teams Interactive Media Specialist Relationship Specialty Start Date End Date Cresencio Angel DO PCP - General Internal Medicine 04/24/[address] [place] [address] documented as of this encounter
--- OUTSIDE RECORDS SUMMARY | 2021-11-16 10:46 | XMS_ITS | Encounter Summary ---
:1970 Author Organization [facility] [place] [address] Care Team Providers Name Role Phone Stanley Cresencio Whitt Primary Care Provider Encounter Details Date Type Department Care Team Description 01/01/2019 Telephone General Surgery at [facility] Sangeetha Matias, [place] [address] Social History Tobacco Use Types Packs/Day [...] this encounter Miscellaneous Notes Telephone Encounter - Ludivina Norman - 01/01/2019 2:44 PM EDT I called and spoke to Lupe grubbs [employer] In regards to Telephone Encounter - Sangeetha Aranda RN - 01/01/2019 1:55 PM EDT Call from Lupe grubbs [employer] in [place] [phone] They can not fill the patient's narcotic as he filled a 28 day supply on December 10, 2018. Attempted to contact the providers office and could not get through on the phone tree. Will forward to nurses [place]. documented in this encounter Plan of Treatment Not on filedocumented as of this encounter Visit Diagnoses Not on filedocumented in this encounter Care Teams Media Center Director School Relationship Specialty Start Date End Date Cresencio Angel DO PCP - General Internal Medicine 04/24/[address] [place] [address] documented as of this encounter
--- OUTSIDE RECORDS SUMMARY | 2021-11-16 10:46 | XMS_ITS | Encounter Summary ---
:1970 Author Organization [facility] [place] [address] Care Team Providers Name Role Phone Cresencio Angel DO Primary Care Provider Encounter Details Date Type Department Care Team Description 10/10/2018 Telephone [place] [facility] Concetta Hull PA [facility] [place] [address] ORTHOPAEDIC SURGERY [phone] [place], [place] [address] (Wo rk) Social History Tobacco [...] this encounter Miscellaneous Notes Telephone Encounter - Pan Garcia RN - 10/10/2018 10:57 AM EDT Letter written. His girlfriend will pick this up in 3 A by the name of Shannan Braswell. He will also call us back and let us know the name and fax # for the new PT script written today. Please just fax this for him. thanks Telephone Encounter - Pan Garcia RN - 10/10/2018 10:36 AM EDT He needs a new letter for the [facility] statin.How long will he have the external fixator for? 2. How long will he be having physical therapy? Disregard the last email. This is a new letter. Telephone Encounter - Concetta Hull PA - 10/10/2018 7:24 AM EDT I received a message that Sravan needed me to call him urgently. No indication of what the purpose of the call was, however it was reported to be time sensitive. Unfortunately I was not able to reach him. I left a message letting him know that I attempted a return call. Concetta Hull PA-C documented in this encounter Plan of Treatment Not on filedocumented as of this encounter Visit Diagnoses Not on filedocumented in this encounter Care Teams Medical Case Worker Relationship Specialty Start Date End Date Cresencio Angel DO PCP - General Internal Medicine 04/24/[address] [place] [id number] documented as of this encounter
--- OUTSIDE RECORDS SUMMARY | 2021-11-16 10:46 | XMS_ITS | Encounter Summary ---
:1970 Author Organization [place] [address] Care Team Providers Name Role Phone Cresencio Angel DO Primary Care Provider Reason for Referral Physical Therapy (Routine) - Specialty Diagnoses / Procedures Referred By Contact Refer red To Contact Diagnoses Tibia/fibula fracture, right, open type III, with malunion, subsequent encounter [place] [address] Referral ID Status Reason Start Date Expiration Date Visits V isits Requested Authorized [id number] Evaluate and 01/01/2019 06/30/2019 12 12 Treat Non PCP hysical Therapy (Routine) - Specialty Diagnoses / Procedures Referred By Contact Refer red To Contact Diagnoses Tibia/fibula fracture, right, open type III, with malunion, subsequent encounter [place] [address] Referral ID Status Reason Start Date Expiration Date Visits V isits Requested Authorized [id number] Evaluate and 01/01/2019 06/30/2019 12 12 Treat Non PCP Reason for Visit Auth/Cert Specialty Diagnoses / Procedures Referred By Contact Refer red To Contact Diagnoses external fixator Procedures PRO REMOVE INSTRUCTIONAL SUPPORT ASSISTANT BONE FIX DEV W ANESTH EXTERNAL FIXATION REMOVAL, LOWER EXTREMITY (WRVU 4.28) Referral ID Status Reason Start Date Expiration Date Visits Requ ested Visits Authorized [id number] 1 1 Encounter Details Date Type Department Care Team Description 01/01/2019 Hospital Encounter Same Day Program at [facility]/aj Oglesby MD fracture, right, [facility] open type III, with [facility] [address] [address] ar[place], subsequent Drive ORTHOPAEDIC encounter [place], [place] SURGERY [id number] [place], [place] [phone] [facility] Social History Tobacco Use Types Packs/Day Years [...] Sign Reading Time Taken Comments Blood Pressure 130/78 01/01/2019 8:11 AM EDT Pulse 67 01/01/2019 5:55 AM EDT Temperature 36.5 ??C (97.7 ??F) 01/01/2019 8:11 AM EDT Respiratory Rate 16 01/01/2019 8:11 AM EDT Oxygen Saturation 100% 01/01/2019 5:55 AM EDT Inhaled Oxygen Concentration - - Weight 99.8 kg (220 lb) 01/01/2019 5:55 AM EDT Height 170.2 cm (5' 7) 01/01/2019 5:55 AM EDT Body Mass Index 34.46 01/01/2019 5:55 AM EDT documented in this encounter Discharge Instructions Discharge InstructionsMann Bro RN - 01/01/2019 8:14 AM EDT POST ANESTHESIA INSTRUCTIONS Go home, rest, use caution on stairs. Change positions slowly. Do not smoke if you are alone. Diet light to regular as tolerated today. If nausea occurs start with clear liquids and progress slowly. No driving, operating machinery, alcoholic beverages and no important decisions for 24 hours. Monitor IV site for signs and symptoms of infection: increasing redness, swelling, foul drainage, ifoccurs contact M.D. Patients who have had endotrachial tubes (this tube, used by anesthesia department, is passed down your throat after you are asleep, to ensure safe air passage during your operation). A sore throat is normal due to the tube. Cold liquids or soothing lozenges will help ease the discomfort. The generalized muscle aches are due to the medication given to you just before the tube is inserted. As the medication wears off, you may develop muscle soreness, which usually goes away in 12-24 hours. Patient Tyler Garcia MD - 01/01/2019 7:46 AM EDT Activity level: 1. You are Weight bearing as tolerated on your Right leg. 2. Remember to keep your Right leg elevated as much as possible to decrease swelling and control pain. Diet: You may return to your usual diet, but increase your fluids and fiber intake to keep you hydrated and your bowels soft. To help with wound healing increase your intake of high protein foods and fluids. Driving: None until you are cleared to do so by your Orthopedic surgeon. You should not drive while you are on narcotic pain meds as they can affect your judgment and reaction time. Call your surgeon with any questions/concerns. Medications: 1. The pain medication you are on can cause constipation so increase your intake of fluids and fiberwhile you are on them. The stool softener, Pericolace, that has been prescribed can also be taken tofacilitate a bowel movement. You can also take an odow-gtt-mbqtbzs medication, Miralax if needed to combat constipation. 2. If you need a renewal on your narcotic pain medication, you need to give the Orthopedic clinic enough time to process your request. This can take up to three days, so plan accordingly. 3. Continue acetaminophen (Tylenol) 1,000mg every 8 hours around the clock until 01/11/19. This can be effective in controlling pain along with your other medications. After that you can take Tylenol asneeded per package insert. Do not take more than 3,000mg of acetaminophen in a 24 hour period. 4. You have been discharged on a short acting narcotic. You will be on this medication for a limitedperiod of time only. Taper off this medication as your pain improves. 5. Do not take any NSAIDs including ibuprofen, Motrin or Aleve. Shower/Bath: You may shower, okay for water to run over pin sites. Do not soak, no baths or pools. Wound Care: 1. You can change the dressing as needed or leave the wound open to air. A dry dressing after this may protect your clothing or decrease wound sensitivity. Call your doctor ([phone]) if you develop: 1. Fever greater than 100.5 2. Severe nausea or vomiting 3. Increasing pain that is not controlled by pain medications 4. Increasing redness, swelling, or drainage from incisions 5. Change in sensation FOLLOW-UP APPOINTMENTS: 1. You will have follow-up appointments at [facility] as indicated in Future Appointment and Orders. 2. If you are being discharged over the weekend or at night and do not have a scheduled appointment with Orthopedics, you should be notified about your appointment within the next 1-2 days. Please [phone] if you do not hear about an appointment within that timeframe, as your follow-up is important to us. Future Appointments Date Time Provider Department Center 01/16/2019 9:30 AM Cortney Egan MD [facility] [address] [place] [address] If you have questions or concerns: Saturday through Saturday, 8 AM - 5 PM, please call Cortney Egan MD, MD's office at . If it is after 5 PM or on the weekend, please call and ask to speak with the Orthopedic resident on-call. documented in this encounter Medications at Time of Discharge [...] 0 (HYDRODIURIL) 25 mg Tablet mouth daily. diazePAM (VALIUM) 5 mg Take 1 tablet by 30 tablet 0 019 01/16/2019 Tablet mouth every 6 hours as needed for Anxiety. gabapentin (NEURONTIN) 300 Take 1 capsule 90 capsule 3 08/2904/03/2019 mg Capsule by mouth 3 times daily. documented as of this encounter H&P Notes Otoniel Harvey MD - 01/01/2019 6:54 AM EDT PRE-OPERATIVE HISTORY AND PHYSICAL for ADMISSION, OBSERVATION OR PROCEDURE Date of : 1970 Age: 48 y.o. History of Present Illness: Sravan Ching is a 48 y.o. male s/p R tib/fib fx in 2013 with subsequent malunion who had a ringed ex-fix placed on 06/16/18. Presents today after xray imaging of fracture healing for ex-fix removal in the OR. PMHx: Patient Active Problem List Diagnosis Code ??? Tibia/fibula fracture, right, open type III, with malunion, subsequent encounter S82.201R, S82.401R ??? Tibial deformity, acquired, right M21.961 ??? S/P Right tib/fib osteotomy, ringed external fixator placement, 06/16/18 (Dr Egan) Z98.890 No past medical history on file. Past Surgical History: Procedure Laterality Date ??? PRO APPLY BONE UNIPLANE, EXT FIX DEV Right 06/16/2018 APPLICATION OF A UNIPLANE, UNILATERAL, EXT FIXATION SYS, LOWER EXTREMITY (WRVU 8.78) performed by Cortney Egan MD at [facility] MAIN OR ? ? PRO OSTEOTOMY TIBIA & FIBULA Right 06/16/2018 OSTEOTOMY, TIBIA & FIBULA (WRVU 17.48) performed by Cortney Egan MD at [facility] MAIN OR Home Medications: Medications Prior to Admission Medication Sig Dispense Refill Last Dose ??? prazosin (MINIPRESS) 1 mg Capsule Take 1 mg by mouth nightly. 12/31/2018 at Unknown time ??? gabapentin (NEURONTIN) 300 mg Capsule Take 1 capsule by mouth 3 times daily. 90 capsule 3 Past Week at Unknown time ??? HYDROcodone-acetaminophen (NORCO) 5-325 mg Tablet Take 1 tablet by mouth every 6 hours as neededfor Pain. Past Week at Unknown time ??? budesonide-formoterol (SYMBICORT) 80-4.5 mcg/actuation HFA Aerosol Inhaler Inhale into the lungs. 12/31/2018 at Unknown time ??? albuterol 90 mcg/actuation HFA Aerosol Inhaler Inhale 2 puffs into the lungs every 4 hours as needed for Wheezing. Use with spacer 12/31/2018 at Unknown time ??? omeprazole 20 mg Tablet, Delayed Release (E.C.) Take by mouth. 12/31/2018 at Unknown time ??? losartan (COZAAR) 50 mg Tablet Take 50 mg by mouth daily. 12/31/2018 at Unknown time ??? hydroCHLOROthiazide (HYDRODIURIL) 25 mg Tablet Take 25 mg by mouth daily. 12/31/2018 at Unknown time ??? diazePAM (VALIUM) 5 mg Tablet Take 1 tablet by mouth every 6 hours as needed for Anxiety. (Patient not taking: Reported on 11/14/2018) 30 tablet 0 More than a month at Unknown time ??? acetaminophen (TYLENOL) 500 mg Tablet Take 1,000 mg by mouth every 6 hours as needed for Pain. Unknown at Unknown time Allergies: No Known Allergies Family History: Non contributory Family History Problem Relation Age of Onset ??? Hypertension Father ??? No Known Problems Sister ??? No Known Problems Brother ??? Cancer Neg Hx ??? Diabetes Neg Hx Social History: Social History Social History Narrative ??? Not on file Review of Systems: complete 10 system ROS performed with pertinent findings below. Pertinent items are noted in HPI. Physical Exam: VITALS: Temperature Temp: 36.5 ??C (97.7 ??F) Heart Rate Heart Rate: 67 Blood Pressure BP: 128/86 Respiratory Rate Resp: 16 SpO2 SpO2: 100 % No intake/output data recorded. General: alert, appears stated age and cooperative Pulmonary: Normal, equal, clear breath sounds bilaterally and no crepitus Cardiovascular: Regular rate and rhythm Assessment and Plan: 48 y.o. male with the above problem, plan to proceed to OR with Dr. Egan for removal of ringed ex-fix, right ankle manipulation under anesthesia and a right knee steroid injection. Operative consent has been obtained and the patient wishes to proceed to the OR as scheduled. Future Appointments Date Time Provider Department Center 01/16/2019 9:30 AM Cortney Egan MD [facility] [address] [place] [address] Associated attestation - Cortney Egan MD - 01/01/2019 8:18 AM EDT I have seen the patient and reviewed the attached history/physical and I agree with the details as written. The assessment and plan were formulated in discussion with me and I agree with them as documented. Reny Egan MD Department of Orthopaedics 01/01/2019 documented in this encounter Miscellaneous Notes Op Note - Tyler Mccall MD - 01/01/2019 8:02 AM EDT [facility] Operative Note Patient Name: Sravan Ching : [id number] MR#: [id number] Case Date: 01/01/2019 Surgeon: Surgeon(s) and Role: * Cortney Egan MD - Primary * Tyler Mccall MD - Resident * Otoniel Harvey MD - Resident Preoperative diagnosis: painful hardware Postoperative diagnosis: sane Procedure: Removal right tibia external fixator Manipulation right ankle Corticosteroid injection right knee Findings: ankle able to be gently stretched to neutral Anesthesia:general Estimated Blood Loss: 1 Specimens removed during surgery: None Drains: none Surgical Closure: Primary Closure - skin incision is completely closed without any wires, huseyin, drains or other devices Disposition: awakened from anesthesia, extubated and taken to the recovery room in a stable condition, having suffered no apparent untoward event. Condition: doing well without problems (Please see the Surgical Encounter Summary for any Implant and Specimen details pertinent to this patient.) HPI/Surgical Indications: This is a 48-year-old gentleman who had a posttraumatic deformity of his right tibia, he underwent corrective osteotomy and application of a circular external fixator back in June 2018. His osteotomy,distraction sites instructional bone. The pins had been starting to irritate him as well. After discussion of treatment options he like to proceed with removal of the external fixator. 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 He also had posttraumatic arthritis, pain in his right knee. He desired to have a corticosteroidinjection at the same time as well. Description of procedure Patient was met in the preoperative holding area where the correct site was marked, MRN, checklist, consent were all reviewed and completed. He was then taken to the operating room. Anesthesia was administered. He was transferred to the operating room table in the supine position, all bony prominenceswere well- padded. An SCD was placed on the left leg. A timeout per [facility] protocol was performed. He then received 2 g of cefazolin. The right lower leg, external fixator, pin sites were prepped in sterile fashion. We then used a combination of the screwdriver, T-handle check to loosen all bolts and screws on the ring fixator. All the attachments were loosened and removed. The pins were then removed. We then gently stretched the right ankle. With progressive stretching were able to get him to neutral dorsiflexion. Next we proceeded with the knee injection. Our superolateral injection site was identified based on bony landmarks. Using a 22-gauge needle we injected 4 cc of 1% lidocaine and 1 cc (40mg) of Kenalog. The pin sites and injection site were then dressed with sterile Mepilex dressings. The patient was then awakened from anesthesia and transferred back to the stretcher. He was taken tothe postoperative recovery room without suffering any untoward event. Dr. Egan was present for allcritical portions of the case. Number of fracture regions: 1 Periarticular fractures: Complete articular (type C) Diaphyseal fractures: Multifragmentary (type C) Prep solutions applied PRIOR to final prep: CHG in aqueous solution FINAL surgical prep solution: ChloraPrep Was the fracture definitively fixed/managed during this operation? Yes Was the wound re-prepped during or after the case? None Type of closure for all wounds (select all that apply): Primary closure Was negative pressure wound VAC therapy applied, exchanged or removed? No Were local antibiotcs placed into the wound? None What was the deepest layer of tissue debrided? N/A Was irrigation solution used? No saline only Closed fracture characteristics: None Closed fracture bone loss: None OPEN FRACTURES: If there is a wound, was the wound managed definitively during this operation? Yes- no plans for further wound procedures Open fracture Gustilo classification: NOT OPEN FRACTURE Open fracture skin management: NOT OPEN Open fracture muscle injury:NOT OPEN FRACTURE Open fracture arterial injury:NOT OPEN FRACTURE Open fracture contamination: NOT OPEN FRACTURE Open fracture bone:NOT OPEN FRACTURE Associated attestation - Cortney Egan MD - 01/01/2019 1:31 PM EDT Attestation: Case Date: 01/01/2019 I was present and I participated during the entire procedure (does not need to include opening and closing). Cortney Egan MD 01/01/2019 documented in this encounter Plan of Treatment Scheduled Referrals Name Type Priority Associated Diagnoses Order S chedule Referral to Outpatient Referral Routine Tibia/fibula Ordered: Physical Therapy fracture, right, 019 open type III, with malunion, subsequent encounter Referral to Outpatient Referral Routine Tibia/fibula Ordered: Physical Therapy fracture, right, 019 open type III, with malunion, subsequent encounter documented as of this encounter Procedures Procedure Name Priority Date/Time Associated Diagnosis Comme nts EXTERNAL FIXATION Yes 01/01/2019 7:26 AM EDT Status post o steotomy REMOVAL, LOWER EXTREMITY (WRVU 4.28) documented in this encounter Visit Diagnoses Diagnosis Tibia/fibula fracture, right, open type III, with malunion, subsequent encounter documented in this encounter Administered Medications Inactive Administered Medications - up to 3 most recent administrations Medication Order MAR Action Action Date Dose Rate Site acetaminophen (TYLENOL) tablet Given 01/01/2019 6:03 AM EDT 1,00 0 mg 1,000 mg 1,000 mg, Oral, ONCE, 1 dose, On Pat 01/01/19 at 0615, Maximum dose of acetaminophen is 4000 mg from all sources in 24 hours., Day of Surgery (Day of Procedure), Routine fentaNYL (PF) 50mcg/mL injection 12.5-25 mcg, Intravenous, EVERY 5 MIN KY N, Starting on Pat 01/01/19 at 0810, Until Pat 01/01/19 at 1125, Pain, Give 12.5 mc g every 5 minutes PRN for mild to moderate pain (1-5) Give 25 mcg every 5 minutes P RN for moderate to severe pain (6-10). Hold for respiratory rate less than 10 per mi nute. Maximum dose 250 mcg over one hour. If ordered with hydromorphone or morphin e, give hydromorphone or morphine first and use fentanyl for breakthrough pain., PACU Recovery, Ro utine gabapentin (NEURONTIN) capsule 300 mg Given 01/01/2019 6:03 AM EDT 300 mg 300 mg, Oral, ONCE, 1 dose, On Pat 01/01/19 at 0615, Day of Surgery (Day of Procedure), Routine HYDROcodone-acetaminophen (NORCO) 5-325 mg Given 01/01 9:22 AM EDT 1 tablet per tablet 1 tablet 1 tablet, Oral, EVERY 6 HOURS PRN, Starting on Pat 01/01/19 at 0914, Until Pat 01/01/19 at 1314, Pain, Maximum dose of acetaminophen is 4000 mg from all sources in 24 hours. , Routine lactated ringers infusion New Bag 01/01/2019 6:12 AM EDT 1,000 mLs 100 mL/hr 1,000 mL, at 100 mL/hr, Intravenous, CONTINUOUS, Starting on Pat 01/01/19 at 0615, Until Pat 01/01/19 at 1125, Day of Surgery (Day of Procedure) lidocaine (XYLOCAINE) 10 mg/mL (1 %) inj ection 3 mg 3 mg (0.3 mL), Subcutaneous, ONCE PRN, 1 dose, Starting on Pat 01/01/19 at 0551, Until Pat 01/01/19 at 1125, for discomfo rt with PIV insertion, Day of Surgery (Day of Procedure), Routine naloxone (NARCAN) injection 0.04 mg 0.04 mg, Intravenous, EVERY 5 MIN PRN, S tarting on Pat 01/01/19 at 0810, Until Pat 01/01/19 at 1125, Opioid Reversal, for respiratory rat e less than 6 or unresponsive., May repeat every 5 minutes to increase respiratory rate. DO NOT exceed 0.12 mg total dose. Notify anesthesia immediate ly if administered., PACU Recovery, Routine promethazine (PHENERGAN) injection 12.5 mg 12.5 mg, Intravenous, EVERY 30 MIN PRN, 2 doses, Starting on Pat 01/01/19 at 0810, Until Pat 01/01/19 at 1125, Nausea, VESICANT - Dilute with a minimum of 10 mL saline. LARGE VEIN only. Inject over 10 minutes into the farthest port of a running IV infusion. Remain with the patient and STOP infusion immediately if patient reports burning. Avoid extravasation. If multiple antiemetics are ordered, use ondansetron first and if ineffective use prochlorperazine second and if ineffective use promethazine., PACU Recovery, Routine sodium chloride 0.9 % (flush) flush 5-20 mL 5-20 mL, Intravenous, EVERY 1 MIN PRN, S tarting on Pat 01/01/19 at 0551, Until Pat 01/01/19 at 1125, flush, Flush pertains to all indwelling lines. Flush per protocol found in the job aid using the link provided on this m edication record., Day of Surgery (Day of Procedure), Routine documented in this encounter Active and Recently Administered Medications Times are shown in EDT. Scheduled Medication Order 12/30/2018 12/31/2018 01/01/2019 acetaminophen (TYLENOL) tablet 1,000 mg (COMPLETED) 0603 (Given - Provider: Sruthi Waldron RN) 1,000 mg, Oral, ONCE, 1 dose, Pat at 0615, Maximum dose of acetaminophen is 4000 mg from all sources in 24 hours., Day of Surgery (Day of Procedure), Routine acetaminophen (TYLENOL) tablet 975 mg 0830 (Due) 975 mg, Oral, EVERY 8 HOURS SCHEDULED, F irst dose on Pat 01/01/19 at 0830, Until Discontinued, Maximum total acetaminophen dose 4 grams per 24 hours., Recovery (Recovery-Hospital Unit), Routine gabapentin (NEURONTIN) capsule 300 mg (COMPLETED) 0603 (Given - Provider: Sruthi Waldron RN) 300 mg, Oral, ONCE, 1 dose, Pat 01/01/19 at 0615, Day of Surgery (Day of Procedure), Routine Continuous Medication Order 12/30/2018 12/31/2018 01/01/2019 lactated ringers infusion 0612 ( New Bag - Provider: Sruthi Waldron RN)0748 (Stopped - Provider: Rui Nassar CRNA) 1,000 mL, at 100 mL/hr, Intravenous, CON TINUOUS, Starting Pat 01/01/19 at 0615, Until Pat 01/01/19 at 1125, Day of Surgery (Day of Procedure) PRN Medication Order 12/30/2018 12/31/2018 01/01/2019 fentaNYL (PF) 50mcg/mL injection 12.5-25 mcg, Intravenous, EVERY 5 MIN KY N, Starting Pat 01/01/19 at 0810, Until Pat 01/01/19 at 1125, Pain, Give 12.5 mcg every 5 minutes PRN for mild to moderate pain (1-5) Give 25 mcg every 5 minutes PRN for moderate to severe pain (6-10). Hold for respiratory rate less than 10 per minute. Maximum dose 250 mcg over one hour. If ordered with hydromorphone or morphine, give hydromorphone or morphine f irst and use fentanyl for breakthrough pain., PACU Recovery, Rou nichole HYDROcodone-acetaminophen (NORCO) 5-325 mg per tablet 1 tablet 0922 (Given - Provider: Mann Bro RN) 1 tablet, Oral, EVERY 6 HOURS PRN, Start ing Pat 01/01/19 at 0914, Until Pat 01/01/19 at 1314, Pain, Maximum dose of acetaminophen is 4000 mg from all sources in 24 hours. , Routine lidocaine (XYLOCAINE) 10 mg/mL (1 %) injection 3 mg 3 mg (0.3 mL), Subcutaneous, ONCE PRN, 1 dose, Starting Pat 10/24/19 at 0551, Until Pat 01/01/19 at 1125, for discomfort with PIV insertion, Day of Surgery (Day of Procedure), Routine lidocaine (XYLOCAINE) 10 mg/mL (1 %) injection (CANCELED) 808 (Given - Provider: Cortney Egan MD - Comment: 30mg kenalog mixed with 6ml of 1% lidocaine and injected into right knee) ONCE PRN, Starting Pat 01/01/19 at 0809, Until Pat 01/01/19 at 1314, Intra- Operative (Intra-Procedure), Routine naloxone (NARCAN) injection 0.04 mg 0.04 mg, Intravenous, EVERY 5 MIN PRN, S tarting Pat 01/01/19 at 0810, Until Pat 01/01/19 at 1125, Opioid Reversal, for respiratory rate less than 6 or unresponsive., May repeat every 5 minutes to increa se respiratory rate. DO NOT exceed 0.12 mg total dose. Notify anesthesia immediately if administered., PACU Recovery, Routine promethazine (PHENERGAN) injection 12.5 mg 12.5 mg, Intravenous, EVERY 30 MIN PRN, 2 doses, Starting Pat 10 at 0810, Until Pat 01/01/19 at 1125, Nausea, VESICANT - Dilute with a minimum of 10 mL saline. LARGE VEIN only. Inject over 10 ino gilberto into the farthest port of a running IV infusion. Remain with the patient and STOP infusion immediately if patient reports burning. Avoid extravasation. If multiple antiemetics are ordered, use on dansetron first and if ineffective use p rochlorperazine second and if ineffective use promethazine., PACU Recovery, Routine sodium chloride 0.9 % (flush) flush 5-20 mL 5-20 mL, Intravenous, EVERY 1 MIN PRN, S tarting Pat 01/01/19 at 0551, Until Pat 01/01/19 at 1125, flush, Flush pertains to all indwelling lines. Flush per protocol found in the job aid using the link pr ovided on this medication record., Day of Surgery (Day of Proced ure), Routine triamcinolone acetonide (KENALOG-40) injection (CANCELED) 0807 (Given - Provider: Cortney Egan MD - Comment: 30mg kenalog mixed with 6ml of 1% lidocaine and injected into right knee) ONCE PRN, Starting Pat 01/01/19 at 0807, Until Pat 01/01/19 at 1314, Intra- Operative (Intra-Procedure), Routine documented in this encounter Care Teams [employer] Supervisor Relationship Specialty Start Date End Date Cresencio Angel DO PCP - General Internal Medicine 04/24/[address] [place] [address] documented as of this encounter
--- OUTSIDE RECORDS SUMMARY | 2021-11-16 10:46 | XMS_ITS | Encounter Summary ---
:1970 Author Organization [facility] [place] [address] Care Team Providers Name Role Phone Cresencio Angel DO Primary Care Provider Encounter Details Date Type Department Care Team Description 11/20/2018 Telephone Orthopaedics at [facility] Pam Crews, [place] [address] Social History Tobacco Use Types Packs/Day [...] documented as of this encounter Miscellaneous Notes Addendum Note - Pam Crews RN - 11/21/2018 12:22 PM EDT Addended by: PAM CREWS on: 11/21/2018 12:22 PM Modules accepted: Orders Telephone Encounter - Pam Crews RN - 11/21/2018 12:21 PM EDT Bactrim DS BID for 10 days has been ordered as per MAO Patton. Patient made aware of the Rx. Telephone Encounter - Pam Crews RN - 11/21/2018 10:14 AM EDT Images from the original note were not included. Telephone Encounter - Pam Crews RN - 11/20/2018 5:40 PM EDT I called and spoke to patient. He will take pictures of areas of concern and send them to [facility] e-mail tomorrow; he is presently resting and elevating his right leg. Telephone Encounter - Pam Crews RN - 11/20/2018 1:15 PM EDT S/p Right Tib/Fib osteotomy; ringed ex-fix placement. Patient called to report at Physical Therapy today, the PT and RN at the [place] [facility] told patient he might have fracture blisters at upper pin wire laterally and middle upper tibia. Patient states he has noticed increased pain in right lower extremity but assumed it is resulting from WBAT. No report of fever, nausea, vomiting, chills or night sweats. Telephone to the [facility] is [phone]. Physical therapist's name is Fanta. Called multiple times but have been unable to be connected to the Physical Therapy department. Message routed to MAO Patton. documented in this encounter Plan of Treatment Not on filedocumented as of this encounter Visit Diagnoses Diagnosis Tibia/fibula fracture, right, open type III, with malunion, subsequent encounter documented in this encounter Care Teams Photograph Finisher Relationship Specialty Start Date End Date Cresencio Angel DO PCP - General Internal Medicine 04/24/[address] [place] [address] documented as of this encounter
--- OUTSIDE RECORDS SUMMARY | 2021-11-16 10:46 | XMS_ITS | Encounter Summary ---
:1970 Author Organization [facility] [place] [address] Care Team Providers Name Role Phone Cresencio Angel DO Primary Care Provider Encounter Details Date Type Department Care Team Description 09/19/2018 Orders Only [place] [facility] Cortney Egan MD [facility] [place] [address] [place] [address] ORTHOPAEDIC SURGERY [phone] [place], [place] [address] (Wo rk) Social History Tobacco [...] on filedocumented in this encounter Care Teams Strategic Advisor Relationship Specialty Start Date End Date Cresencio Angel DO PCP - General Internal Medicine 04/24/[address] [place] [address] documented as of this encounter
--- OUTSIDE RECORDS SUMMARY | 2021-11-16 10:46 | XMS_ITS | Encounter Summary ---
:1970 Author Organization [facility] Address [facility] [place] [address] Care Team Providers Name Role Phone Cresencio Angel DO Primary Care Provider Encounter Details Date Type Department Care Team Description 12/12/2018 Orders Only Orthopaedics at [facility] Cortney Egan, Tibia/fibula [facility] MD fracture, right, open Drive [facility] type III, [place] [address] [address] [address] arango, subsequent [phone] ORTHOPAEDIC encounter SURGERY [place] [id number] Social History Tobacco Use Types Packs/Day Years [...] encounter Results XR Tibia Fibula Right (Generic) (12/12/2018 8:04 AM EDT) Anatomical Region Laterality Modality Right Digital Radiography Specimen (Source) Anatomical Location Collection Method / Collectio n Time Received Time / Laterality Volume Impressions 12/12/2018 9:57 AM EDT Proximal tibial and fibular osteotomy lines remain clearly seen but may be slightly less distinct than on the prior study. Thank you for letting us participate in the care of this patient. For questions regarding this report, please contact e number below. ? Narrative 12/12/2018 9:57 AM EDT EXAMINATION: XR TIBIA FIBULA RIGHT (GENERIC) CLINICAL HISTORY: s/p fx TECHNIQUE: 2 views RIGHT tibia and fibula (total of 4 images) COMPARISON: None FINDINGS: External fixation device remains present and partially obscures portions of the area of interest. The proximal tibial and fibular osteotom ies remain visible and are perhaps slightly less distinct than on the prior study. Chronic posttraumatic deformity of the p roximal to mid tibia is again seen in addition to tiny metallic fragments in t he adjacent soft tissues. Procedure Note Jose Cedeno MD - 12/12/2018Formatting o f this note might be different from the original. EXAMINATION: XR TIBIA FIBULA RIGHT (GENE ZOHAIB) CLINICAL HISTORY: s/p fx TECHNIQUE: 2 views RIGHT tibia and fibula (total of 4 images) COMPARISON: None FINDINGS: External fixation device remains present and partially obscures portions of the area of interest. The proximal tibial and fibular osteotom ies remain visible and are perhaps slightly less distinct than on the prior study. Chronic posttraumatic deformity of the p roximal to mid tibia is again seen in addition to tiny metallic fragments in t he adjacent soft tissues. IMPRESSION Proximal tibial and fibular osteotomy li little remain clearly seen but may be slightly less distinct than on the prior study. Thank you for letting us participate in the care of this patient. For questions regarding this report, please contact e number below. Cortney Egan MD IMG DX ORDERABLES documented in this encounter Visit Diagnoses Diagnosis Tibia/fibula fracture, right, open type III, with malunion, subsequent encounter Tibia/fibula fracture, right, open type III, with malunion, subsequent encounter documented in this encounter Care Teams Tilesetter Relationship Specialty Start Date End Date Cresencio Angel DO PCP - General Internal Medicine 04/24/[address] [place] [address] documented as of this encounter
--- OUTSIDE RECORDS SUMMARY | 2021-11-16 10:46 | XMS_ITS | Encounter Summary ---
:1970 Author Organization [facility] Address [address] [place] [address] Care Team Providers Name Role Phone Cresencio Angel DO Primary Care Provider Encounter Details Date Type Department Care Team Description 11/14/2018 Hospital Encounter [place] [place] [facility] Tibia/fibula fracture, [address] [place] [address] Dr quinones, open type III, [place] [address] with malunion, subsequent enco unter Social History Tobacco Use Types Packs/Day Years [...] Sig Dispensed Refills Start Date End Date prazosin (MINIPRESS) 1 mg Take 1 mg [...] mg Capsule by mouth 3 times daily. HYDROcodone-acetaminophen Take 1 tablet by 0 01/01/2019 (NORCO) 5-325 mg Tablet mouth every 6 hours as needed for Pain. documented as of this encounter Plan of Treatment Not on filedocumented as of this encounter Procedures Procedure Name Priority Date/Time Associated Diagnosis Comme nts XR TIBIA FIBULA Routine 11/14/2018 10:26 AM Tibia/fibula Resul ts for this RIGHT EDT fracture, right, procedure a re in open [...] please contact e number below. ? Narrative 11/14/2018 2:54 PM EDT EXAMINATION: XR [...] report, please contact e number below. Cortney Reny Egan MD IMG DX ORDERABLES documented in this encounter Visit Diagnoses Diagnosis Tibia/fibula fracture, right, open type III, with malunion, subsequent encounter documented in this encounter Care Teams Counter Sales Person Relationship Specialty Start Date End Date Cresencio Angel DO PCP - General Internal Medicine 04/24/[address] [place] [address] documented as of this encounter
--- OUTSIDE RECORDS SUMMARY | 2021-11-16 10:46 | XMS_ITS | Encounter Summary ---
:1970 Author Organization [facility] [place] [address] Care Team Providers Name Role Phone Stanley Cresencio Jose Eduardo MORA Primary Care Provider Reason for Visit Auth/Cert Specialty Diagnoses / Procedures Referred By Contact Refer red To Contact Diagnoses external fixator Procedures PRO REMOVE PENSION AGENT BONE FIX DEV W ANESTH EXTERNAL FIXATION REMOVAL, LOWER EXTREMITY (WRVU 4.28) Referral ID Status Reason Start Date Expiration Date Visits Requ ested Visits Authorized [id number] 1 1 Encounter Details Date Type Department Care Team Description 01/01/2019 Anesthesia Event Main Operating Room Felicita Thompson MD [facility] [place] [address] [facility] Whit Levine MD [facility] [place] [address] [facility] [place] [address] Anesthesia Record Procedure Summary Procedure Name Responsible Anesthesia Start Anesthesia Stop Time Anesthesiologist Time EXTERNAL FIXATION Felicita Jackson MD 01/01/19 0724 9 0808 REMOVAL, LOWER EXTREMITY (WRVU 4.28) (Right Leg) Events Date Time Event Comment 01/01/2019 0645 0724 Start 0727 AN Verify 0727 An Start Data 0733 An Induction 0735 An Intubation 0737 Anesthesia Ready 0801 Extubation/LMA Out 0803 an stop data 0808 Recovery or ICU Handoff Patient care was transferred to the destination unit staff after review of the patient's medica l history, current anesthetic/surgi dyana status and plan, according to the Provider Handoff Checklist. 0808 Stop Name Total Midazolam 2 mg fentaNYL 100 mcg IV Lidocaine 100 mg Propofol 300 mg Ondansetron 8 mg Dexamethasone 8 mg ceFAZolin 2 g Dexmedetomidine 8 mcg lactated ringers infusion 500 mL Agents Name O2 Air N2O Sevoflurane (et) Blood No blood administrations on file. Lines, Drains, and Airways Type Details Placement Removal Drain/Device Site 06/16/18; 0940; Right; 06/16/18 0940 by lower; leg; collapsible Geovanna, closed device; Dr. Laurita oLyd, RN Gitajn; 1/8th inch round drain cut to 10 holes Incision 06/16/18; 08; leg; ex 06/16/18 0805 by 2 1715 by fix application; 11/06/21 Jade Austin r, Cassandra L (LDA cleanup utility Laurita Loyd RN RA#[id number]); 1715 (LDA cleanup utility RA#[id number]) PIV 01/01/19; 0611; cephalic 01/01/19 0611 by 1124 by vein (lateral side of Sruthi Waldron, Mann Quispe, RN arm), left; RN [id number]-[id number] catheter system; 20 gauge; intradermal injection, tolerated well; 01/01/19; 1124 Supraglottic Mask Ventilation: Easy 01/01/19 0735 by 01/01/19 0801 by (1); LMA Type: iGel; LMA Rui Nassar, Rui Cervantes, Size: 4; Inserted by: W[employer] Elder, Med Student, under guidance of MD Manuel documented in this encounter Social History Tobacco Use Types Packs/Day Years [...] on file documented as of this encounter OR Notes Anesthesia Postprocedure Evaluation - Felicita Jackson MD - 01/01/2019 8:29 AM EDT Department of Anesthesiology Post-procedure Note Patient: Sravan Ching Procedure Summary Date: 01/01/19 Room / Location: [facility] OR [facility] MAIN OR Anesthesia Start: 723 Anesthesia Stop: 807 Procedure: EXTERNAL FIXATION REMOVAL, LOWER EXTREMITY (WRVU 4.28) (Right Leg) Diagnosis: Status post osteotomy (external fixator) Surgeon: Cortney Egan MD Responsible Provider: Felicita Jackson MD Anesthesia Type: Not recorded ASA Status: 2 All Anesthesia Providers: Anesthesiologist: Felicita Jackson MD ELEMENTARY READING SPECIALIST: Rui Nassar CRNA Vitals Value Taken Time BP 121/80 01/01/2019 8:15 AM Temp 36.5 ??C (97.7 ??F) 01/01/2019 8:11 AM Pulse Resp 16 01/01/2019 8:11 AM SpO2 99 % 01/01/2019 8:27 AM Pain Level Vitals shown include unvalidated device data. Patient Location: PACU/[facility] Level of Consciousness: Awake and Alert Pain Management: Satisfactory Analgesia PONV: None Cardiovascular Status: At Baseline and Hemodynamically Stable Respiratory Status: At Baseline and Room Air Postoperative Fluid Status: Intravascular EUvolemia Possible Anesthetic Complications: NONE apparent at time of evaluation Final Primary Anesthesia Type: General (The anesthetic type performed was the same as planned.) Comments: FELICITA JACKSON MD Anesthesia Preprocedure Evaluation - Teofilo Akhtar MD - 12/31/2018 7:46 PM EDT Pre-Anesthesia Evaluation for: Sravan Ching a 48 y.o. male. Procedure(s): EXTERNAL FIXATION REMOVAL, LOWER EXTREMITY (WRVU 4.28) Patient Active Problem List Diagnosis ??? Tibial deformity, acquired, right ??? S/P Right tib/fib osteotomy, ringed external fixator placement, 06/16/18 (Dr Egan) ??? Tibia/fibula fracture, right, open type III, with malunion, subsequent encounter No past medical history on file. Past Surgical History: Procedure Laterality Date ??? PRO APPLY BONE UNIPLANE, EXT FIX DEV Right 06/16/2018 APPLICATION OF A UNIPLANE, UNILATERAL, EXT FIXATION SYS, LOWER EXTREMITY (WRVU 8.78) performed by Cortney Egan MD at [facility] MAIN OR ? ? PRO OSTEOTOMY TIBIA & FIBULA Right 06/16/2018 OSTEOTOMY, TIBIA & FIBULA (WRVU 17.48) performed by Cortney Egan MD at [facility] MAIN OR Social History Tobacco Use ??? Smoking status: Former Smoker Types: Cigarettes Last attempt to quit: 02/07/2004 Years since quittin.9 ??? Smokeless tobacco: Former User Types: Chew Quit date: 02/07/2004 ??? Tobacco comment: 02/07/04 Substance Use Topics ??? Alcohol use: Not Currently Alcohol/week: 1.0 standard drinks Types: 1 Shots of liquor per week Comment: very rarely Social History Substance and Sexual Activity Drug Use Not Currently ??? Frequency: 2.0 times per week ??? Types: Marijuana Comment: once in a while No Known Allergies Medications: MAR and/or home medications have been reviewed. Physical Exam: There were no vitals filed for this visit. There is no height or weight on file to calculate BMI. 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 PAT Clinic Note documented in this encounter Plan of Treatment Not on filedocumented as of this encounter Visit Diagnoses Not on filedocumented in this encounter Administered Medications Inactive Administered Medications - up to 3 most recent administrations Medication Order MAR Action Action Date Dose Rate Site ceFAZolin (ANCEF) 1g in dextrose 5% Given 01/01/2019 7:37 AM EDT 2 g 50mL PRN, Starting on Pat 01/01/19 at 0737, Until Pat 01/01/19 at 0810, Administer over 30 Minutes, Anesthesia Intra-op dexamethasone (DECADRON) injection Given 01/01/2019 7:38 AM EDT 8 mg PRN, Starting on Pat 01/01/19 at 0738, Until Pat 01/01/19 at 0810, Anesthesia Intra-op, Routine dexmedetomidine (PRECEDEX) injection Given 01/01/2019 7:35 AM EDT 8 mcg PRN, Starting on Pat 01/01/19 at 0735, Until Pat 01/01/19 at 0810, Anesthesia Intra-op, Routine fentaNYL 50 mcg/mL multi-dose injection Given 01/01/2019 7:45 AM EDT 50 mcg PRN, Starting on Pat 01/01/19 at 0745, Until Pat 01/01/19 at 0810, Anesthesia Intra-op, Routine Given 01/01/2019 7:41 AM EDT 50 mcg lidocaine (PF) (XYLOCAINE) 100 mg/5 mL (2 %) Given 7:31 AM EDT 100 mg injection PRN, Starting on Pat 01/01/19 at 0731, Until Pat 01/01/19 at 0810, Anesthesia Intra-op, Routine midazolam (PF) (VERSED) multi-dose injec tion Given 01/01/2019 7:25 AM EDT 2 mg PRN, Starting on Pat 01/01/19 at 0725, Until Pat 01/01/19 at 0810, Anesthesia Intra-op, Routine ondansetron (ZOFRAN) injection Given 01/01/2019 7:45 AM EDT 4 mg PRN, Starting on Pat 10 at 0738, Until Pat 01/01/19 at 0810, Anesthesia Intra-op, Routine Given 01/01/2019 7:38 AM EDT 4 mg propofol (DIPRIVAN) 10 mg/mL bolus injection Given 7:34 AM EDT 100 mg (Anesthesia) PRN, Starting on Pat 01/01/19 at 0733, Until Pat 01/01/19 at 0810, Anesthesia Intra-op Given 01/01/2019 7:33 AM EDT 200 mg documented in this encounter Care Teams Evp And Chief Operating Officer Relationship Specialty Start Date End Date Cresencio Angel DO PCP - General Internal Medicine 04/24/[address] [place] [address] documented as of this encounter
--- OUTSIDE RECORDS SUMMARY | 2021-11-16 10:46 | XMS_ITS | Encounter Summary ---
:1970 Author Organization [facility] [place] [address] Care Team Providers Name Role Phone Cresencio Angel DO Primary Care Provider Encounter Details Date Type Department Care Team Description 09/19/2018 Orders Only [place] [facility] Blayne Siegel, Right foot pain [facility] [place] [address] Social History Tobacco Use Types Packs/Day [...] filedocumented as of this encounter Results XR Foot Min 3 views Right (Generic) (09/19/2018 10:31 AM EDT) Anatomical Region Laterality Modality Foot Right Digital Radiography Specimen (Source) Anatomical Location Collection Method / Collectio n Time Received Time / Laterality Volume Impressions 09/19/2018 2:18 PM EDT No acute osseous pathology of the foot. Thank you for letting us participate in the care of this patient. For questions regarding this report, please contact [facility] number below. ? Narrative 09/19/2018 2:18 PM EDT EXAMINATION: XR FOOT MIN 3 VIEWS RIGHT (GENERIC) CLINICAL HISTORY: right foot pain TECHNIQUE: AP, oblique and lateral of the right aretha t. COMPARISON: None FINDINGS: The osseous structures are diffusely dem ineralized. No fracture, dislocation or other acute pathology is seen. The joint spaces are intact. A portion of an external fixation device in the tibia is visible. Procedure Note Triston Mon MD - 09/19/2018 EXAMINATION: XR FOOT MIN 3 VIEWS RIGHT ( GENERIC) CLINICAL HISTORY: right foot pain TECHNIQUE: AP, oblique and lateral of the right aretha t. COMPARISON: None FINDINGS: The osseous structures are diffusely dem ineralized. No fracture, dislocation or other acute pathology is seen. The joint spaces are intact. A portion of an external fixation device in the tibia is visible. IMPRESSION No acute osseous pathology of the foot. Thank you for letting us participate in the care of this patient. For questions regarding this report, please contact e number below. Cortney Egan MD IMG DX ORDERABLES documented in this encounter Visit Diagnoses Diagnosis Tibia/fibula fracture, right, open type III, with malunion, subsequent encounter Right foot pain Pain in limb Right foot pain Pain in limb documented in this encounter Care Teams Bricklayer Supervisor Relationship Specialty Start Date End Date Cresencio Angel DO PCP - General Internal Medicine 04/24/[address] [place] [address] (work) documented as of this encounter
--- OUTSIDE RECORDS SUMMARY | 2021-11-16 10:46 | XMS_ITS | Encounter Summary ---
:1970 Author Organization [place] [address] Care Team Providers Name Role Phone Cresencio Angel DO Primary Care Provider Reason for Visit Auth/Cert Specialty Diagnoses / Procedures Referred By Contact Refer red To Contact Diagnoses external fixator Procedures PRO REMOVE PIPE BENDING MACHINE OPERATOR BONE FIX DEV W ANESTH EXTERNAL FIXATION REMOVAL, LOWER EXTREMITY (WRVU 4.28) Referral ID Status Reason Start Date Expiration Date Visits Requ ested Visits Authorized [id number] 1 1 Encounter Details Date Type Department Care Team Description 01/01/2019 Surgery Main Operating Room [facility] DR EXTREMITY (WRVU 4.28) [facility] [place] [address] [place] [address] [phone] Social History Tobacco Use Types Packs/Day Years [...] bowel movement. You can also take an tmuc-ylg-muszjey medication, Miralax if needed to combat constipation. [...] or decrease wound sensitivity. Call your doctor ([phone]) if you develop: 1. Fever greater than 100.5 2. Severe nausea or vomiting 3. Increasing pain that is not controlled by pain medications 4. Increasing redness, swelling, or drainage from incisions 5. Change in sensation FOLLOW-UP APPOINTMENTS: 1. You will have follow-up appointments at [facility] as indicated in Future Appointment and Orders. 2. If you are being discharged over the weekend or at night and do not have a scheduled appointment with Orthopedics, you should be notified about your appointment within the next 1-2 days. Please [phone] if you do not hear about an appointment within that timeframe, as your follow-up is important to us. Future Appointments Date Time Provider Department Center 01/16/2019 9:30 AM Cortney Egan MD [facility] [address] [place] [address] If you have questions or concerns: Saturday [...] 8.78) performed by Cortney Egan MD at [facility] MAIN OR ? ? PRO OSTEOTOMY TIBIA & FIBULA Right 06/16/2018 OSTEOTOMY, TIBIA & FIBULA (WRVU 17.48) performed by Cortney Egan MD at [facility] MAIN OR Home Medications: Medications Prior [...] 9:30 AM Cortney Egan MD [facility] [address] [place] [address] Associated attestation - Cortney Egan MD - [...] Mccall MD - 01/01/2019 8:02 AM EDT [facility] Operative Note Patient Name: Sravan Ching : [id number] MR#: [id number] Case Date: 01/01/2019 Surgeon: Surgeon(s) and Role: [...] on the left leg. A timeout per [facility] protocol was performed. He then received 2 [...] open type III, with malunion, subsequent encounter Status post osteotomy documented in this encounter Administered Medications Inactive [...] injection 12.5-25 mcg, Intravenous, EVERY 5 MIN VA N, Starting on Pat 01/01/19 at 0810, [...] of Procedure), Routine lidocaine (XYLOCAINE) 10 mg/mL Given 01/01/2019 8:09 AM EDT 6 mL s 19- Surgical Site (1 %) injection ONCE PRN, Starting on Pat 01/01/19 at 0809, Until Pat 01/01/19 at 1314, Intra-Operative (Intra-Procedure), Routine naloxone (NARCAN) injection 0.04 mg [...] Day of Surgery (Day of Procedure), Routine triamcinolone acetonide Given 01/01/2019 8:07 AM EDT 30 mg 19- Surgical Site (KENALOG-40) injection ONCE PRN, Starting on Pat 01/01/19 at 0807, Until Pat 01/01/19 at 1314, Intra-Operative (Intra-Procedure), Routine documented in this encounter Active and Recently Administered Medications Times are shown in EDT. Scheduled Medication Order 12/30/2018 12/31/2018 01/01/2019 acetaminophen (TYLENOL) tablet 1,000 mg (COMPLETED) 602 (Given - Provider: Sruthi Waldron RN) 1,000 [...] Routine gabapentin (NEURONTIN) capsule 300 mg (COMPLETED) 602 (Given - Provider: Sruthi Waldron, INGRID) 300 mg, Oral, ONCE, 1 dose, Pat [...] injection 12.5-25 mcg, Intravenous, EVERY 5 MIN VA N, Starting Pat 01/01/19 at 0810, Until [...] Subcutaneous, ONCE PRN, 1 dose, Starting Pat 01/01/19 at 0551, Until Pat 01/01/19 at 1125, for discomfort with PIV insertion, Day of Surgery (Day of Procedure), Routine lidocaine (XYLOCAINE) 10 mg/mL (1 %) injection (CANCELED) 0809 (Given - Provider: Cortney Egan MD - [...] 30 MIN PRN, 2 doses, Starting Pat 01/01/19 at 0810, Until Pat [...] Routine documented in this encounter Care Teams Principal Statistical Scientist Relationship Specialty Start Date End Date Cresencio Angel DO PCP - General Internal Medicine 04/24/18 [address] [place] [address] documented as of this encounter
--- OUTSIDE RECORDS SUMMARY | 2021-11-16 10:46 | XMS_ITS | Encounter Summary ---
:1970 Author Organization [facility] Address [address] [place] [address] Care Team Providers Name Role Phone Cresencio Angel DO Primary Care Provider Reason for Visit Reason Comments Post Op XR 01/01/19 right exfix claudia shai Encounter Details Date Type Department Care Team Description 01/16/2019 Office Visit Orthopaedics [place] [facility] [place] Cortney Egan, Tibia/fibula One [facility] Center fracture, right, open Drive [facility] type III, [place] [address] arango, subsequent [phone] ORTHOPAEDIC encounter SURGERY [place] [id number] Social History Tobacco Use Types Packs/Day Years [...] Sign Reading Time Taken Comments Blood Pressure 120/80 01/16/2019 9:25 AM EST Pulse 60 01/16/2019 9:25 AM EST Temperature 36.4 ??C (97.6 ??F) 01/16/2019 9:25 AM EST Respiratory Rate - - Oxygen Saturation - - Inhaled Oxygen Concentration - - Weight 99.8 kg (220 lb) 01/16/2019 9:25 AM EST Height 170.2 cm (5' 7) 01/16/2019 9:25 AM EST Body Mass Index 34.46 01/16/2019 9:25 AM EST documented in this encounter Progress Notes Cortney Egan MD - 01/16/2019 9:30 AM EST Sravan Ching returns in follow-up 2 weeks s/p removal of his external fixator. He reports he is really doing well. His pain is well controlled. He continues to have issues with ankle stiffness and [place]is working with [facility] the [place] FollowUp 01/16/2019 Health in general Good Quality of life Good Physical health Good Mental health Good Satisfaction with social activities Good Ability to carry out physical activities A little Rate of pain 5 Rate of fatigue Moderate Ability to carry out social activities Good Bothered by emotional problems Sometimes PROMIS PHYSICAL HEALTH SCORE 37.4 PROMIS MENTAL HEALTH SCORE 43.5 Gone to ER since knee surgery No Admitted to hospital since knee surgery No Additional surgery on same knee No Employment status before injury - Returned to previous employment - Spending time in inpatient rehab facility - Rate overall condition today - Physical Exam- In general a well developed well nourished male in no apparent distress. Examination of the leg reveals the incisions are all clean dry and intact, pin sites look good. His ankle is quite stiff - he can plantarflex to 20 degrees but he can't dorsiflex quite to neutral. Fires EHL/FHL/TA/GC are intact. Capillary refill is < 3 seconds. Sensation is intact. Radiographs- xray shows the alignment is maintained. Osteotomy is healed. Assessment and Plan- Sravan Ching is a 48 y.o. male who returns in follow-up 2 weeks s/p removal of ex fix. He is really doing extremely well. He reports that his knee pain is significantly improved,and he is walking well. He is having difficulty with an ankle equinus contracture for which he can'tquite dorsiflex to neutral. We discussed that there are surgical procedures that could help with this, however, I would like to maximize all nonoperative treatments first. He is planning to start working with a dynamic splint which I provided him with a DME script for. I also think he would benefit a great deal from the ExoSym brace (formerly the IDEO brace) which was designed specifically for severely traumatized limbs, such as his. He will follow-up in 2-3 months. Reny Egan MD Department of Orthopaedic Surgery 01/16/19 documented in this encounter Plan of Treatment Not on filedocumented as of this encounter Visit Diagnoses Diagnosis Tibia/fibula fracture, right, open type III, with malunion, subsequent encounter documented in this encounter Care Teams Beef Cattle Specialist Relationship Specialty Start Date End Date Cresencio Angel DO PCP - General Internal Medicine 04/24/[address] [place] [address] documented as of this encounter
--- OUTSIDE RECORDS SUMMARY | 2021-11-16 10:46 | XMS_ITS | Encounter Summary ---
:1970 Author Organization [facility] [place] [address] Care Team Providers Name Role Phone Stanley Cresencio Jose Eduardo MORA Primary Care Provider Reason for Visit Reason Onset Date Comments Medication Refill 11/21/2018 Encounter Details Date Type Department Care Team Description 11/21/2018 Refill Orthopaedics [place] [facility] Kaycee Hickman RN [facility] GENERAL INTER[place] [address] [facility] [phone] [place] [phone] (Wo rk) Social History Tobacco Use Types [...] this encounter Miscellaneous Notes Telephone Encounter - Kaycee Hickman RN - 11/21/2018 11:21 AM EDT Opened record to check the PDMP. documented in this encounter Plan of Treatment Not on filedocumented as of this encounter Visit Diagnoses Not on filedocumented in this encounter Care Teams National Sales Relationship Specialty Start Date End Date Cresencoi Angel DO PCP - General Internal Medicine 04/24/[address] [place] [address] documented as of this encounter
--- OUTSIDE RECORDS SUMMARY | 2021-11-16 10:46 | XMS_ITS | Encounter Summary ---
:1970 Author Organization [facility] [place] [address] Care Team Providers Name Role Phone Stanley Cresencio Jose Eduardo MORA Primary Care Provider Encounter Details Date Type Department Care Team Description 01/01/2019 Telephone [place] [facility] [place] [address] Social History Tobacco Use Types Packs/Day [...] this encounter Miscellaneous Notes Telephone Encounter - Katiuska Lomas LPN - 01/01/2019 3:30 PM EDT Called and spoke with [facility] pharmacist Terry Vasquez [place] [phone] Must speak with to authorize narcotic prescription fill written today for [place] 5/325mg Patient received a prescription on 12/10 from [facility] for [place] 7.5/325 mg, take 3/day # 84 for 28 day supply Tyler Antonio MD , this requires a phone call from MD documented in this encounter Plan of Treatment Not on filedocumented as of this encounter Visit Diagnoses Not on filedocumented in this encounter Care Teams Logistics Vice President Relationship Specialty Start Date End Date Cresencio Angel DO PCP - General Internal Medicine 04/24/[address] [place] [address] documented as of this encounter
--- OUTSIDE RECORDS SUMMARY | 2021-11-16 10:46 | XMS_ITS | Encounter Summary ---
:1970 Author Organization [facility] Address [address] [facility] [place] [address] Care Team Providers Name Role Phone Cresencio Angel DO Primary Care Provider Encounter Details Date Type Department Care Team Description 12/12/2018 Hospital Encounter XRay at [facility] Tibia/fibula fracture, [address] [place] [address] Dr quinones, open type III, [place] [address] with malunion, subsequent enco unter Social [...] 0 (HYDRODIURIL) 25 mg Tablet mouth daily. oxyCODONE (ROXICODONE) 5 mg Take 1-2 tablets 20 tablet 0 01/01/2019 Tablet by mouth every 4 hours as needed for Pain. No driving, no alcohol diazePAM (VALIUM) 5 mg Take 1 tablet [...] Diagnosis Comme nts XR TIBIA FIBULA Routine 12/12/2018 8:04 AM Tibia/fibula Result s for this RIGHT EDT fracture, right, procedure [...] contact e number below. Electronically signed by: MARIAJOSE Hopkins [facility] ([phone]), at 12/12/2018 9:57 AM Cortney Egan MD IMG DX ORDERABLES documented in this encounter Visit Diagnoses Diagnosis Tibia/fibula fracture, right, open type III, with malunion, subsequent encounter documented in this encounter Care Teams Video Systems Engineer Relationship Specialty Start Date End Date Cresencio Angel DO PCP - General Internal Medicine 04/24/[address] [place], [place] [id number] documented as of this encounter
--- OUTSIDE RECORDS SUMMARY | 2021-11-16 10:46 | XMS_ITS | Encounter Summary ---
:1970 Author Organization [place] [address] Care Team Providers Name Role Phone Cresencio Angel DO Primary Care Provider Reason for Visit Reason Onset Date Comments Other 10/20/2018 External hardware di scharjuly Encounter Details Date Type Department Care Team Description 10/20/2018 Telephone [place] [facility] [place] Jazzy Tenorio RN Other (External [facility] D rive hardware discharge) [place] [address] Social History Tobacco Use Types Packs/Day Years [...] this encounter Miscellaneous Notes Telephone Encounter - Jazzy Tenorio RN - 10/20/2018 3:43 PM EDT A call was received from Dr. Cresencio Angel from the [facility] (Main number at [facility]: [phone]; cell number: [phone]). Dr. Angel reports drainage was noted from right lower extremity external hardware. Dr. Angel ordered a Culture and Sensitivity from the drainage coming from the screws. Result came back today as Simple Staph Aureus; Dr. Angel started patient on Clindamycin 450 mg QID for 10 days. Message routed to Dr. Egan and Yoselin Siegel, RN documented in this encounter Plan of Treatment Not on filedocumented as of this encounter Visit Diagnoses Not on filedocumented in this encounter Care Teams Flamer After Lasting Relationship Specialty Start Date End Date Cresencio Angel DO PCP - General Internal Medicine 04/24/[address] [place] [address] documented as of this encounter
--- OUTSIDE RECORDS SUMMARY | 2021-11-16 10:46 | XMS_ITS | Encounter Summary ---
:1970 Author Organization [place] [address] Care Team Providers Name Role Phone Cresencio Angel DO Primary Care Provider Reason for Visit Reason Onset Date Comments Other 10/10/2018 Encounter Details Date Type Department Care Team Description 10/10/2018 Telephone Orthopaedics at [facility] [place] [address] Social History Tobacco Use Types Packs/Day Years [...] Encounter - Pan Garcia RN - 10/10/2018 8:45 AM EDT Will talk to [facility] about this Telephone Encounter - Rhoda Colvin - 10/10/2018 8:23 AM EDT Caller and relationship to patient (if other than patient): Sravan Best time to reach caller: any Message or Reason for Call: Sravan was returning Aminata Hull call regarding a letter. Please have Aminata call him back at the above number Appt Needed and Reason: n/a Provider: Aminata Hull documented in this encounter Plan of Treatment Not on filedocumented as of this encounter Visit Diagnoses Not on filedocumented in this encounter Care Teams Buckle Inspector Relationship Specialty Start Date End Date Cresencio Angel DO PCP - General Internal Medicine 04/24/[address] [place], [place] [phone] documented as of this encounter
--- OUTSIDE RECORDS SUMMARY | 2021-11-16 10:46 | XMS_ITS | Encounter Summary ---
:1970 Author Organization [facility] Address [facility] [address] Care Team Providers Name Role Phone Cresencio Angel DO Primary Care Provider Encounter Details Date Type Department Care Team Description 09/19/2018 Orders Only Orthopaedics at [facility] [place] Cortney Egan, Tibia/fibula [facility] MD fracture, left, open Drive [facility] type III, [place] [address] [address] [address] arango, subsequent [phone] ORTHOPAEDIC encounter SURGERY [place] [id number] Social History Tobacco Use Types Packs/Day Years [...] as of this encounter Plan of Treatment Scheduled Orders Name Type Priority Associated Diagnoses Order S chedule XR Tibia Fibula Left Imaging Routine Tibia/fibula fractur e, Expected: 09/19/2018 (Generic) left, open type III, with (A pproximate)nba, subsequent Expires : 03/21/2019 encounter documented as of this encounter Visit Diagnoses Diagnosis Tibia/fibula fracture, left, open type I II, with malunion, subsequent encounter documented in this encounter Care Teams Mixing Machine Tender Relationship Specialty Start Date End Date Cresencio Angel DO PCP - General Internal Medicine 04/24/[address] [place] [address] documented as of this encounter
--- OUTSIDE RECORDS SUMMARY | 2021-11-16 10:47 | XMS_ITS | Encounter Summary ---
:1970 Author Organization [facility] Address [facility] [place] [address] Care Team Providers Name Role Phone Cresencio Angel DO Primary Care Provider Encounter Details Date Type Department Care Team Description 07/02/2018 Orders Only Orthopaedics at [facility] Cortney Egan, Tibia/fibula [facility] MD fracture, right, open Drive [facility] type III, [place] [address] [address] [address] arango, subsequent [phone] ORTHOPAEDIC encounter SURGERY [place] [id number] Social History Tobacco Use Types Packs/Day Years Used Date Former Smoker Cigarettes Quit: 02/07/20 Smokeless Tobacco: Former User Chew Q uit: 02/07/2004 Comments: 02/07/04 Alcohol Use Standard Drinks/Week Comments Yes 1 (1 standard drink = 0.6 oz [...] encounter Results XR Tibia Fibula Right (Generic) (07/10/2018 8:03 AM EDT) Anatomical Region Laterality Modality Right Digital Radiography Specimen (Source) Anatomical Location Collection Method / Collectio n Time Received Time / Laterality Volume Impressions 07/10/2018 11:29 AM EDT There is a slight widening at the tibial osteotomy consistent with ongoing correction. Fixation is unchanged. Thank you for letting us participate in the care of this patient. For questions regarding this report, please contact e number below. ? Narrative 07/10/2018 11:29 AM EDT EXAMINATION: XR TIBIA FIBULA RIGHT (GENERIC) CLINICAL HISTORY: right tib fib osteotom y TECHNIQUE: 2 views RIGHT tibia and fibula COMPARISON: 06/30/2018 and a series of earlier films extending back to postoperative exam dated 05/02/2018 documenting earlier frac ture malunion of the right tibia. FINDINGS: As seen on multiple previous studies the lower leg is held in circular external fixation following osteotomy at the prox imal metadiaphyseal junction of the tibia and the fibula. When comparison is made to the earlier studies there has be a slight widening of the margins of t he osteotomy. Procedure Note Wes Winkler MD - 07/10/2018Forma tting of this note might be different from the original. EXAMINATION: XR TIBIA FIBULA RIGHT (GENE ZOHAIB) CLINICAL HISTORY: right tib fib osteotom y TECHNIQUE: 2 views RIGHT tibia and fibula COMPARISON: 06/30/2018 and a series of earlier films extending back to postoperative exam dated 05/02/2018 documenting earlier frac ture malunion of the right tibia. FINDINGS: As seen on multiple previous studies the lower leg is held in circular external fixation following osteotomy at the prox imal metadiaphyseal junction of the tibia and the fibula. When comparison is made to the earlier studies there has be a slight widening of the margins of t he osteotomy. IMPRESSION There is a slight widening at the tibial osteotomy consistent with ongoing correction. Fixation is unchanged. Thank you for letting us participate in the care of this patient. For questions regarding this report, please contact e number below. Cortney Egan MD IMG DX ORDERABLES documented in this encounter Visit Diagnoses Diagnosis Tibia/fibula fracture, right, open type III, with malunion, subsequent encounter Tibia/fibula fracture, right, open type III, with malunion, subsequent encounter documented in this encounter Care Teams Boats Renter Relationship Specialty Start Date End Date Cresencio Angel DO PCP - General Internal Medicine 04/24/[address] [place] [address] documented as of this encounter
--- OUTSIDE RECORDS SUMMARY | 2021-11-16 10:47 | XMS_ITS | Encounter Summary ---
:1970 Author Organization [facility] [place] [address] Care Team Providers Name Role Phone Cresencio Jose Eduardo MORA Primary Care Provider Encounter Details Date Type Department Care Team Description 07/23/2018 Orders Only Orthopaedics at [facility] Cortney Egan, S/P Right tib/fib [facility] MD osteotomy, ringed [facility] [place] [address] [address] [address] blakely, 06/16/18 ORTHOPAEDIC [place]) SURGERY [place], [place] [address] Social History Tobacco Use Types [...] encounter Results XR Tibia Fibula Right (Generic) (07/30/2018 1:28 PM EDT) Anatomical Region Laterality Modality Right Digital Radiography Specimen (Source) Anatomical Location Collection Method / Collectio n Time Received Time / Laterality Volume Impressions 07/30/2018 5:32 PM EDT Stable hardware position. Increased widening of the osteotomy cleft at the proximal tibia and fibula with some herminia y bone deposition at the osteotomies. Thank you for letting us participate in the care of this patient. For questions regarding this report, please contact th e number below. ? Narrative 07/30/2018 5:32 PM EDT EXAMINATION: XR TIBIA FIBULA RIGHT (GENERIC) CLINICAL HISTORY: right tib osteotomy TECHNIQUE: 2 views RIGHT tibia and fibula: AP and l ateral radiographs, total of 4 films. COMPARISON: Radiographs of the right tibia and fibul a dated 07/18/2018 and 07/10/2018. FINDINGS: External fixator remains in place and ap pears similar in position. Small punctate radiopaque densities are again seen overlying the proximal-mid calf. Proximal tibial and fibular osteotomies are again noted. While there is no bridging bone seen, there is ill-defined densities at both sites suggestive of bone deposition. There is further wideni ng of the osteotomy cleft at both the tibial and fibular osteotomy sites, alig nment otherwise unchanged. Unchanged deformity and sclerosis of the old mid t ibial fracture site. Procedure Note Daisy Puri MD - 07/30/2018Formatt ing of this note might be different from the original. EXAMINATION: XR TIBIA FIBULA RIGHT (GENE ZOHAIB) CLINICAL HISTORY: right tib osteotomy TECHNIQUE: 2 views RIGHT tibia and fibula: AP and l ateral radiographs, total of 4 films. COMPARISON: Radiographs of the right tibia and fibul a dated 07/18/2018 and 07/10/2018. FINDINGS: External fixator remains in place and ap pears similar in position. Small punctate radiopaque densities are again seen overlying the proximal-mid calf. Proximal tibial and fibular osteotomies are again noted. While there is no bridging bone seen, there is ill-defined densities at both sites suggestive of bone deposition. There is further wideni ng of the osteotomy cleft at both the tibial and fibular osteotomy sites, alig nment otherwise unchanged. Unchanged deformity and sclerosis of the old mid t ibial fracture site. IMPRESSION Stable hardware position. Increased wide naheed of the osteotomy cleft at the proximal tibia and fibula with some herminia y bone deposition at the osteotomies. Thank you for letting us participate in [...] Egan) documented in this encounter Care Teams Safety Pin Assembling Machine Operator Relationship Specialty Start Date End Date Cresencio Angel DO PCP - General Internal Medicine 04/24/[address] [place] [address] documented as of this encounter
--- OUTSIDE RECORDS SUMMARY | 2021-11-16 10:47 | XMS_ITS | Encounter Summary ---
:1970 Author Organization [facility] [place] [address] Care Team Providers Name Role Phone Stanley Cresencio Jose Eduardo MORA Primary Care Provider Encounter Details Date Type Department Care Team Description 05/29/2018 Telephone Orthopaedics at [place] Blayne Siegel, [place] [address] Social History Tobacco Use Types Packs/Day [...] this encounter Miscellaneous Notes Telephone Encounter - Blayne Siegel RN - 05/29/2018 4:33 PM EDT Message reviewed from OR scheduling team reporting Losartan to nursing. Reviewed with Julisa to determine if an alternative stop date would be needed. No indication from surgeon that med should, other than as advised by the OR pre op team advise patient night before. No further action needed. documented in this encounter Plan of Treatment Not on filedocumented as of this encounter Visit Diagnoses Not on filedocumented in this encounter Care Teams Video Game Tester Relationship Specialty Start Date End Date Cresencio Angel DO PCP - General Internal Medicine 04/24/18 [address] [place] [address] documented as of this encounter
--- OUTSIDE RECORDS SUMMARY | 2021-11-16 10:47 | XMS_ITS | Encounter Summary ---
:1970 Author Organization [facility] [place] [address] Care Team Providers Name Role Phone Stanley Cresencio Jose Eduardo MORA Primary Care Provider Encounter Details Date Type Department Care Team Description 06/30/2018 Hospital Encounter XRay at [facility] Liyah, Edil Sanders, S/P Right tib/fib [address] [facility] [address] STRINGER osteotomy, [place], [place] [facility] external fixato [id number] blakely, 06/16/18 ORTHOPAEDIC (Dr Egan) [place] [address] Social History Tobacco Use Types Packs/Day Years [...] Sig Dispensed Refills Start Date End Date acetaminophen (TYLENOL) Take 1,000 mg by 0 500 mg Tablet mouth every 6 hours as needed for Pain. budesonide-formoterol Inhale into the 0 (SYMBICORT) 80-4.5 lungs. mcg/actuation HFA Aerosol Inhaler albuterol 90 mcg/actuation Inhale 2 puffs into 0 HFA Aerosol Inhaler the lungs every 4 hours as needed for Wheezing. Use with spacer omeprazole 20 mg Tablet, Take by mouth. 0 Delayed Release (E.C.) losartan (COZAAR) 50 mg Take 50 mg by mouth 0 Tablet daily. hydroCHLOROthiazide Take 25 mg by mouth 0 (HYDRODIURIL) 25 mg Tablet daily. aspirin 81 mg Tablet, Take 1 tablet by 60 tablet 0 06/19/19 19 07/18/2018 Delayed Release (E.C.) mouth 2 times daily for 30 days. HYDROmorphone (DILAUDID) 2 Take 1-2 tablets by 30 tablet 0 06/18/2018 08/05/2018 mg Tablet mouth every 4 hours as needed for Pain. senna-docusate Take 2 tablets by 0 06/18/201812/2018 (PERICOLACE) 8.6-50 mg mouth 2 times daily Tablet as needed for Constipation for up to 30 days. polyethylene glycol Take 17 g by mouth 0 06/19/19 19 07/18/2018 (MIRALAX) 17 gram/dose 2 times daily as Powder needed for up to 30 days. documented as of this encounter Plan of Treatment Not on filedocumented as of this encounter Procedures Procedure Name Priority Date/Time Associated Diagnosis Comme nts XR TIBIA FIBULA Routine 06/30/2018 2:37 PM S/P Right tib/fib R esults for this RIGHT EDT osteotomy, ringed procedure are in external fixator the results placement, 06/16/18 section. (Dr Egan) documented in this encounter Results XR Tibia Fibula Right (Generic) (06/30/2018 2:37 PM EDT) Anatomical Region Laterality Modality Right Digital Radiography Specimen (Source) Anatomical Location Collection Method / Collectio n Time Received Time / Laterality Volume Impressions 06/30/2018 2:55 PM EDT 1. ??Tibial and fibular osteotomy for malunion. 2. ??The tibial osteotomy line is more n arrowed but remains visible. 3. ??Unchanged proximal fibular osteotom y. Thank you for letting us participate in the care of this patient. For questions regarding this report, please contact e number below. ? Electronically signed by: Danyell Perez [facility] ([phone]), at 06/30/2018 2:55 PM Narrative 06/30/2018 2:55 PM EDT EXAMINATION: XR TIBIA FIBULA RIGHT (GENERIC) CLINICAL HISTORY: right tib osteotomy, , ??entered by ordering service TECHNIQUE: 2 views COMPARISON: June 16, 2018. FINDINGS: Bones: Tibial and fibular osteotomy for malunio n stabilized by external fixation. The osteotomy lines remain visible. The tibi al osteotomy line is slightly more narrowed suggesting ongoing healing. No radiolucency surrounding fixation screws. The fibular osteotomy line remai ns visible. There is slight lateral displacement of the distal fibular fragm ent. Joints: Congruent ankle mortise. Soft tissues: Unchanged multiple metallic fragments in proximal tibia. Procedure Note Danyell Perez MD - 06/30/2018Formatt ing of this note might be different from the original. EXAMINATION: XR TIBIA FIBULA RIGHT (GENE ZOHAIB) CLINICAL HISTORY: right tib osteotomy, , entered by ordering service TECHNIQUE: 2 views COMPARISON: June 16, 2018. FINDINGS: Bones: Tibial and fibular osteotomy for malunio n stabilized by external fixation. The osteotomy lines remain visible. The tibi al osteotomy line is slightly more narrowed suggesting ongoing healing. No radiolucency surrounding fixation screws. The fibular osteotomy line remai ns visible. There is slight lateral displacement of the distal fibular fragm ent. Joints: Congruent ankle mortise. Soft tissues: Unchanged multiple metallic fragments in proximal tibia. IMPRESSION 1. Tibial and fibular osteotomy for darya nion. 2. The tibial osteotomy line is more radu rowed but remains visible. 3. Unchanged proximal fibular osteotomy. Thank you for letting us participate in the care of this patient. For questions regarding this report, please contact e number below. Electronically signed by: Danyell Perez [facility] ([phone]), at 06/30/2018 2:55 PM Edil Pelletier MD IMG DX ORDERABLES documented in this encounter Visit Diagnoses Diagnosis S/P Right tib/fib osteotomy, ringed exte rnal fixator placement, 06/16/18 (Dr Egan) documented in this encounter Care Teams Work Order Detailer Relationship Specialty Start Date End Date Cresencio Angel DO PCP - General Internal Medicine 04/24/[address] [place] [address] documented as of this encounter
--- OUTSIDE RECORDS SUMMARY | 2021-11-16 10:47 | XMS_ITS | Encounter Summary ---
:1970 Author Organization [facility] [place] [address] Care Team Providers Name Role Phone Cresencio Angel DO Primary Care Provider Encounter Details Date Type Department Care Team Description 09/01/2018 Telephone Orthopaedics at [facility] Blayne Siegel, [place] [address] Social History Tobacco Use Types Packs/Day Years [...] Telephone Encounter - Blayne Siegel RN - 09/01/2018 9:13 AM EDT Contacted patient to clarify which [place] office his PT referral should be sent to [facility] to the attention of [place]. Phone number [phone] documented in this encounter Plan of Treatment Not on filedocumented as of this encounter Visit Diagnoses Not on filedocumented in this encounter Care Teams Project Safety Manager Relationship Specialty Start Date End Date Cresencio Angel, PCP - General Internal Medicine 04/24/[address] [place], [place] [id number] documented as of this encounter
--- OUTSIDE RECORDS SUMMARY | 2021-11-16 10:47 | XMS_ITS | Encounter Summary ---
:1970 Author Organization [facility] [place] [address] Care Team Providers Name Role Phone Cresencio Angel DO Primary Care Provider Reason for Visit Reason Comments Follow Up Surgery Right osteotomy tibia & fibu la DOS 06/16/2018 Encounter Details Date Type Department Care Team Description 07/10/2018 Office Visit Orthopaedics at [facility] Concetta Hull Postoperative wound [facility] [place] [address] CENTER [phone] ORTHOPAEDIC SURGERY [place], [place] [address] Social History Tobacco Use Types [...] Sign Reading Time Taken Comments Blood Pressure 120/76 07/10/2018 8:36 AM EDT Pulse 87 07/10/2018 8:36 AM EDT Temperature - - Respiratory Rate - - Oxygen Saturation - - Inhaled Oxygen Concentration - - Weight 97.5 kg (215 lb) 07/10/2018 8:36 AM EDT pt cristino prakash nwb Height 170.2 cm (5' 7) 07/10/2018 8:36 AM EDT pt cristino prakash nwb Body Mass Index 33.67 07/10/2018 8:36 AM EDT documented in this encounter Progress Notes Concetta Hull PA - 07/10/2018 9:00 AM EDT PATIENT NAME: Sravan Ching AGE: 47 y.o. MR#: [id number] DATE OF VISIT: 07/10/2018 CHIEF COMPLAINT: 3 weeks FU 06/16/18 (Gitajn) Right Osteotomy, Tibia and Fibula, Ex Fix placement Per LAURA Alejandro's discharge note: This is a??47 y.o.??male??with a remote balistics fracture complicated by compartment syndrome requiring fasciotomy and skin grafting also complicated by infection and ultimately malunion. ??He has been working and doing well with ADLs, however, recently, due to the LLD and varus deformity he has been having increasing issues with hip pain, low back pain, knee pain and ankle pain. ??After taking thevarus deformity into account he is approximately 15mm short on the injured side (approximately 30mm short clinically prior to taking the varus deformity into account) as well as 18 degrees varus and approximately 45 degrees rotational malalingment. ??We had a long discussion about the nature of this pr oblem as well as treatment options. ??Given the substantial deformity in association with LLD and history of infection, I do think that the best treatment option for him would be deformity correction and limb lengthening using a circular frame. ??We did also discuss acute deformity correction, however, this would make him shorter than he is already since it would entail removing a wedge of bone. ??Furthermore, given his history of infection there is always concerns regarding placing internal fixation. HISTORY OF PRESENT ILLNESS: Mr. Ching is a 47 y.o. male who comes into clinic today for evaluation of the right leg The PT was last in to see myself on 06/30/2018 . Since this visit he has been feeling well. He did start noting some increased bleeding from the middle of the anterior flap incision over the past few days. He denies fever, chills, drenching night sweats. He has been adhering to the adjustment protocol prescribed at last week's appointment. Past medical history: Patient Active Problem List Diagnosis Date Noted ??? Tibial deformity, acquired, right 06/16/2018 ??? S/P Right tib/fib osteotomy, ringed external fixator placement, 06/16/18 (Dr Egan) 06/16/2018 ??? Tibia/fibula fracture, right, open type III, with malunion, subsequent encounter 05/02/2018 Medications: ??? acetaminophen (TYLENOL) 500 mg Tablet ??? senna-docusate (PERICOLACE) 8.6-50 mg Tablet ??? polyethylene glycol (MIRALAX) 17 gram/dose Powder ??? aspirin 81 mg Tablet, Delayed Release (E.C.) ??? budesonide-formoterol (SYMBICORT) 80-4.5 mcg/actuation HFA Aerosol Inhaler ??? albuterol 90 mcg/actuation HFA Aerosol Inhaler ??? omeprazole 20 mg Tablet, Delayed Release (E.C.) ??? losartan (COZAAR) 50 mg Tablet ??? hydroCHLOROthiazide (HYDRODIURIL) 25 mg Tablet ??? HYDROmorphone (DILAUDID) 2 mg Tablet Allergies: No Known Allergies Social history: Social History Tobacco Use ??? Smoking status: Former Smoker Types: Cigarettes Last attempt to quit: 02/07/2004 Years since quittin.4 ??? Smokeless tobacco: Former User Types: Chew Quit date: 02/07/2004 ??? Tobacco comment: 02/07/04 Substance Use Topics ??? Alcohol use: Yes Alcohol/week: 0.6 oz Types: 1 Shots of liquor per week Comment: very rarely Review of systems: No chest pain or shortness of breath No fevers, night sweats or chills Vital signs: Most Recent Vitals: 07/10/18 0836 BP: 120/76 Pulse: 87 Physical exam: Mr. Ching is a 47 y.o. male who is alert and oriented. He is in no acute discomfort and is resting comfortably in the exam room. External fixator in place. Pin sites were clean. Some dried blood which was removed with saline and a swab. No yu-incisional erythema noted No bogginess to palpation about the incision however there was a small amount of bloody drainage from the middle of the incision. No evidence of dehiscence. No malodor noted. Skin feels no warmer than surrounding tissue I am not able to part the skin with gentle palpation PT/DP pulses 2+. Superficial peroneal, deep peroneal, sural, saphenous, and tibial nerves intact to touch. Is not able to extend the great toe against resistance. Imaging studies: Tib fib films were obtained today showing osteotomy site and external fixator. The distal tibia has moved anteriorly since previous imaging. Lab Results Component Value Date WBC 13.0 (H) 07/10/2018 HGB 14.6 07/10/2018 HCT 41.4 07/10/2018 MCV 86.3 07/10/2018 PLATELET 405 (H) 07/10/2018 CRP (mg/L) Date Value 07/10/2018 10.0 (H) Lab Results Component Value Date SEDRATE 10 07/10/2018 Assessment and plan:: 47 y.o. year-old male now roughly 3 weeks out post right tibial osteotomy with draining wound. Pt seen and plan discussed in conjunction with Lucas Mendez, Srinivas guest relations representative as well as with Dr. Egan. We had a long discussion regarding the nature of Sravan Ching's chief complaint. We reviewed the imaging together which is described above. Clinically Sravan Ching seems to be handling things well.We discussed the prescription regarding adjusting the ex fix components. He does have some draining from the center of the flap incision. This does not appear infectious, He has no symptoms, however I will have him obtain labs today after clinic. The results will help guide us regarding potential antibiotic treatment. I would like him to dress this with gauze and tape. He will need to change this twice per day or asneeded. Please watch for fever, chills, drenching night sweats, increased drainage or redness about the site. I have given him a package of Steri-Strips on the off chance that this may begin to dehisce. If this does happen he needs to come to clinic immediately. this plan was discussed with the patient and they are in agreement. All of the patient's questions were answered. The patient understand to contact us if they have any other questions or concerns. FU: Appointment scheduled on 07/18/18, 07/30/18, and 08/20/18. Will need XR images of the right tibia fibula prior to each appointment. Concetta Hull PA-C The above dictation was made with voice recogonition software documented in this encounter Plan of Treatment Not on filedocumented as of this encounter Procedures Procedure Name Priority Date/Time Associated Diagnosis Comme nts CRP, ACUTE Routine 07/10/2018 10:30 Postoperative wound Resu lts for this INFLAMMATION AM EDT infection procedure are i n the results section. HEMOGRAM Routine 07/10/2018 10:30 Postoperative wound Resu lts for this AM EDT infection procedure are i n the results section. DIFFERENTIAL, Routine 07/10/2018 10:30 Postoperative wound Res ults for this AUTOMATED AM EDT infection procedure are i n the results section. SEDIMENTATION RATE Routine 07/10/2018 10:30 Postoperative woun d Results for this AM EDT infection procedure are i n the results section. CBC (WITH DIFF) Routine 07/10/2018 10:30 Postoperative wound AM EDT infection documented in this encounter Results (ABNORMAL) Differential, Automated (07/10/2018 10:30 AM EDT) [facility] Method Time Signature Neutrophils % 72.1 % [facility] Neutr Abs (ANC) 9.33 (H) 1.70 - [facility] 6.10 [facility] x10(3)/[facility] LABORATORY Lymphocytes % 16.4 % [facility] Lymphocytes Abs 2.1 0.9 - 3.2 [facility] x10(3)/[facility] LABORATORY Monocytes % 9.0 % [facility] Monocyte Abs 1.2 (H) 0.3 - 0.9 [facility] x10(3)/[facility] LABORATORY Eosinophils % 1.5 % [facility] Eosinophils Abs 0.2 0.0 - 0.4 [facility] x10(3)/[facility] LABORATORY Basophils % 0.5 % [facility] Basophils Abs 0.1 0.0 - 0.1 [facility] x10(3)/[facility] LABORATORY Immature Gran % 0.50 % [facility] Comment: Immature granulocytes(IG's)percentage an d absolute count will include metamyelocytes, myelocytes, and promyelo cytes. Blood smears from CBCs yielding IG's will be scanned manually for concor dance. If this scan disagrees with the automated IG or if promyelocytes are not ed, a manual differential will be performed. Monica Gran Abs 0.07 (H) 0.00 - 0.04 x10(3)/[facility] LABORATORY Specimen Anatomical Collection Method Collection Time Receive d Time (Source) Location / / Volume Laterality Blood specimen 07/10/2018 10:30 9 (specimen) AM EDT 10:44 AM EDT Resulting Agency Comment Spec In Lab Concetta CAVANAUGH HEMATOLOGY ORDERABLES Performing Organization Address City/State/ZIP Code Phon e Number [place] [phone] (ABNORMAL) Hemogram (07/10/2018 10:30 AM EDT) Analysis Performed At Patho logist Time Signature WBC 13.0 (H) 4.0 - 9.5 [facility] x10(3)/[facility] LABORATORY RBC 4.80 4.58 - [facility] 5.54 [facility] x10(6)/[facility] LABORATORY Hemoglobin 14.6 13.7 - [facility] 16.5 gm/dL [facility]ORY Hematocrit 41.4 40.5 - [facility] 48.5 % [facility] MCV 86.3 82.9 - [facility] 93.1 [facility] LABORATORY MCH 30.4 27.5 - [facility] 32.1 pg [facility] MCHC 35.3 32.0 - [facility] 35.7 gm/dL [facility] Platelets 405 (H) 145 - 357 [facility] x10(3)/[facility] LABORATORY RDWSD 40.0 36.0 - [facility] 45.0 [facility] RDWCV 12.8 11.4 - [facility] 13.8 % [facility] LABORATORY MPV 10.0 7.6 - 12.9 [facility] LABORATORY nRBC % Auto 0.0 % [facility] nRBC Abs Auto 0.000 0.000 - [facility] 0.000 [facility] x10(3)/[facility] LABORATORY Specimen Anatomical Collection Method Collection Time Receive d Time (Source) Location / / Volume Laterality Blood specimen 07/10/2018 10:30 9 (specimen) AM EDT 10:44 AM EDT Resulting Agency Comment Spec In Lab Concetta C[facility]NAUGH HEMATOLOGY ORDERABLES Performing Organization Address City/State/[place] [address] (ABNORMAL) CRP, acute inflammation (07/10/2018 10:30 AM EDT) P athologist Signature CRP 10.0 (H) <=4.9 mg/L [facility] Specimen Anatomical Collection Method Collection Time Receive d Time (Source) Location / / Volume Laterality Blood specimen 07/10/2018 10:30 9 (specimen) AM EDT 10:44 AM EDT Resulting Agency Comment Spec In Lab Cortney Egan MD CHEMISTRY ORDERABLES Performing Organization Address City/State/[place] [address] Sedimentation rate (07/10/2018 10:30 AM EDT) P athologist Signature Sed Rate 10 0 - 15 [facility] mm/hr [facility] Specimen Anatomical Collection Method Collection Time Receive d Time (Source) Location / / Volume Laterality Blood specimen 07/10/2018 10:30 9 (specimen) AM EDT 10:44 AM EDT Resulting Agency Comment Spec In Lab Cortney Egan MD HEMATOLOGY ORDERABLES Performing Organization Address City/[facility]/[place] [address] documented in this encounter Visit Diagnoses Diagnosis Postoperative wound infection Other postoperative infection documented in this encounter Care Teams Beam Sealer Relationship Specialty Start Date End Date Cresencio Angel DO PCP - General Internal Medicine 04/24/[address] [place] [id number] documented as of this encounter
--- OUTSIDE RECORDS SUMMARY | 2021-11-16 10:47 | XMS_ITS | Encounter Summary ---
:1970 Author Organization [facility] [place] [address] Care Team Providers Name Role Phone Cresencio Angel DO Primary Care Provider Encounter Details Date Type Department Care Team Description 07/10/2018 Hospital Encounter XRay at [facility] Julisa, Cortney Tibia/fibula [address] [facility] [address] Reny MD fracture, right, [place], [place] [facility] open type III, with [phone] arango, subsequent [phone] [place] [address] Social History Tobacco Use Types Packs/Day Years [...] Diagnosis Comme nts XR TIBIA FIBULA Routine 07/10/2018 8:03 AM Tibia/fibula Result s for this RIGHT [...] encounter documented in this encounter Care Teams Hard [place] Miner Relationship Specialty Start Date End Date Cresencio Angel DO PCP - General Internal Medicine 04/24/18 [address] [place] [id number] documented as of this encounter
--- OUTSIDE RECORDS SUMMARY | 2021-11-16 10:47 | XMS_ITS | Encounter Summary ---
:1970 [place] [address] Care Team Providers Name Role Phone Cresencio Angel DO Primary Care Provider Reason for Referral Physical Therapy (Routine) - Specialty Diagnoses / Procedures Referred By Contact Refer red To Contact Physical Therapy Diagnoses Status post osteotomy Yulissa Alejandro APRN [facility] [place] [address] Referral ID Status Reason Start Date Expiration Date Visits V isits Requested Authorized [id number] Evaluate and 06/18/2018 12/15/2018 12 12 Treat Non PCP Reason for Visit Auth/Cert Specialty Diagnoses / Procedures Referred By Contact Refer red To Contact Diagnoses tibial deformity/LLD Procedures PRO OSTEOTOMY TIBIA & FIBULA PRO APPLY BONE UNIPLANE, EXT FIX DEV OSTEOTOMY, TIBIA & FIBULA (WRVU 17.48) APPLICATION OF A UNIPLANE, UNILATERAL, EXT FIXATION SYS, LOWER EXTREMITY (WRVU 8.78) Referral ID Status Reason Start Date Expiration Date Visits Requ ested Visits Authorized [id number] 1 1 Encounter Details Date Type Department Care Team Description 06/16/2018 - Hospital Encounter 3 Cortney Ramsey Acquired deformity of right lower leg; 06/18/2018 [facility] MD Reny S/P Right tib/fib osteotomy, ringed exte rnal fixator placement, 06/16/18 (Dr Egan) [facility] [address] OR[facility]OP[facility]EDIC [place], [place] SURGERY [id number] [phone] [id number] Social History Tobacco Use Types Packs/Day Years [...] Sign Reading Time Taken Comments Blood Pressure 139/90 06/18/2018 12:01 PM EDT Pulse 136 06/18/2018 1:34 PM EDT notified QA MANAGER Temperature 36.4 ??C (97.5 ??F) 06/18/2018 12:01 PM EDT Respiratory Rate 16 06/18/2018 12:01 PM EDT Oxygen Saturation 96% 06/18/2018 1:34 PM EDT Inhaled Oxygen Concentration - - Weight 97.5 kg (215 lb) 06/16/2018 6:02 AM EDT Height - - Body Mass Index 33.67 05/16/2018 12:54 PM EST documented in this encounter Discharge Summaries Yulissa Alejandro APRN - 06/18/2018 2:02 PM EDT Discharge Summary Patient Name: Sravan Ching Patient Age: 47 y.o. Language: Malagasy Race: Declines to List Ethnicity: Not nor Admit date: 06/16/2018 Discharge date and time: 06/18/2018 Attending Physician: Cortney Egan MD Discharge Physician: Cortney Egan MD Follow-up Recommendations for Providers: See discharge instructions for additional details. Future Appointments Date Time Provider Department Center 06/30/2018 2:30 PM Concetta Hull PA [facility] Inpatient Provider Contact Information: Cortney Egan MD Orthopedics: [phone] After hours and weekends, call [facility] Simulation Educator, , and have the Orthopedic resident paged. Discharge Diagnoses (Hospital Problems) and Secondary Diagnoses (Chronic Problems): Active Hospital Problems Diagnosis ??? S/P Right tib/fib osteotomy, ringed external fixator placement, 06/16/18 (Dr Egan) ??? Tibial deformity, acquired, right Resolved Hospital Problems No resolved problems to display. Active Non-Hospital Problems Diagnosis ??? Tibia/fibula fracture, left, open type III, with malunion, subsequent encounter Operations/Major Procedures: 06/16/2018 Surgeon(s) and Role: * Cortney Egan MD - Primary * Mychal Chen MD - Resident Procedure(s): OSTEOTOMY, TIBIA & FIBULA (WRVU 17.48) APPLICATION OF A UNIPLANE, UNILATERAL, EXT FIXATION SYS, LOWER EXTREMITY (WRVU 8.78) History of Presentation: Sravan Ching is a 47 y.o. male This is a 47 y.o. male with a remote balistics fracture complicatedby compartment syndrome requiring fasciotomy and skin grafting also complicated by infection and ultimately malunion. He has been working and doing well with ADLs, however, recently, due to the LLD andvarus deformity he has been having increasing issues with hip pain, low back pain, knee pain and ankle pain. After taking the varus deformity into account he is approximately 15mm short on the injured side (approximately 30mm short clinically prior to taking the varus deformity into account) as well as 18 degrees varus and approximately 45 degrees rotational malalingment. We had a long discussion about the nature of this problem as well as treatment options. Given the substantial deformity in association with LLD and history of infection, I do think that the best treatment option for him would be deformity correction and limb lengthening using a circular frame. We did also discuss acute deformity correction, however, this would make him shorter than he is already since it would entail removing a wedge of bone. Furthermore, given his history of infection there is always concerns regarding placinginternal fixation. ?? Hospital Course: Sravan Ching was admitted for the above diagnosis and surgical intervention. There were no intraoperative complications. Patient began rehab on POD#1 with non-weight bearing of right leg remembering to use a walker or crutches at all times for balance and protection. The patient was started on oral pain medications and was comfortable. Klein was removed POD#1 and patient was voiding spontaneously in good amounts. Drains were removed POD#2. Patient was changed to ASA for DVT prophylaxis due to his inability and family member's inability to self-inject lovenox. Wound inspected POD#2 and found to be benign. Patient did have a bowel movement prior to discharge and was passing flatus and taking PO without difficulty. By POD#2 the patient was medically stable and was cleared for safe discharge by PT to rehab. Vital Signs at Discharge: Weight: Wt Readings from Last 1 Encounters: /08/ 97.5 kg (215 lb) Height: Ht Readings from Last 1 Encounters: 05/16/ 170.2 cm (5' 7) HC: HC Readings from Last 1 Encounters: No data found for HC BMI: Body mass index is 33.67 kg/m??. Last value Range last 24 hrs Temperature Temp: 36.4 ??C (97.5 ??F) Temp: [36.4 ??C (97.5 ??F)-37 ??C (98.6 ??F)] Heart Rate Heart Rate: 68 Heart Rate: -- Blood Pressure BP: 139/90 BP: (139-158)/(86-91) Respiratory Rate Resp: 16 Resp: [16-19] SpO2 SpO2: 96 % SpO2: [96 %-99 %] Art BP BP (Arterial Line): -- Functional and Cognitive Status: Patient mobilizing with assistance and crutches, cognitively intactat baseline mental status at time of discharge. Important Lab Data: Last 3 wbc, hgb, hct plt Recent Labs 06/17/18 0412 WBC 13.5* HGB 13.3* HCT 37.9* PLATELET 243 Last 3 Lytes Recent Labs 06/17/18 0412 NA 135 K 3.9 CL 99 CO2 26 BUN 11 CREATININE 0.85 Studies: N/A Pending Studies and Lab Data at Discharge: * No orders in the log * Transfusions: No Discharge Conditions/Prognosis: Stable, awake, and alert. Mobilizing as noted above, pain controlledon oral medications. Discharge to: Home with outpatient PT and [facility] in [place], [place] and [phone] Updated Allergies/ADRs: No Known Allergies Immunizations Given this Hospitalization: There is no immunization history on file for this patient. Discharge Medications: Your Medications New Medications Dose Details acetaminophen 500 mg Cap Take 2 capsules by mouth every 8 hours for 10 days. 1000 mg Refills: 0 aspirin 81 mg Tbec Take 1 tablet by mouth 2 times daily for 30 days. 81 mg Quantity: 60 tablet Refills: 0 HYDROmorphone 2 mg Tab Commonly known as: DILAUDID Take 1-2 tablets by mouth every 4 hours as needed for Pain. 2-4 mg Quantity: 30 tablet Refills: 0 polyethylene glycol 17 gram/dose Powd Commonly known as: MIRALAX Take 17 g by mouth 2 times daily as needed for up to 30 days. 17 g Refills: 0 senna-docusate 8.6-50 mg Tab Commonly known as: PERICOLACE Take 2 tablets by mouth 2 times daily as needed for Constipation for up to 30 days. 2 tablet Refills: 0 Continued medications, unchanged Dose Details albuterol 90 mcg/actuation Hfaa Inhale 2 puffs into the lungs every 4 hours as needed for Wheezing. Use with spacer 2 puff Refills: 0 budesonide-formoterol 80-4.5 mcg/actuation Hfaa Commonly known as: SYMBICORT Inhale into the lungs. Refills: 0 hydroCHLOROthiazide 25 mg Tab Commonly known as: HYDRODIURIL Take 25 mg by mouth daily. 25 mg Refills: 0 losartan 50 mg Tab Commonly known as: COZAAR Take 50 mg by mouth daily. 50 mg Refills: 0 omeprazole 20 mg Tbec Take by mouth. Refills: 0 STOPPED Medications HYDROcodone-acetaminophen 5-325 mg Tab Commonly known as: NORCO naproxen sodium 220 mg Cap Commonly known as: ALEVE Smoking Status at Discharge: Social History Tobacco Use Smoking Status Former Smoker ??? Types: Cigarettes ??? Last attempt to quit: 02/07/2004 ??? Years since quittin.3 Smokeless Tobacco Former User ??? Types: Chew ??? Quit date: 02/07/2004 Tobacco Comment 02/07/04 Instructions Given to Patient at Discharge: Patient Instructions Activity level: 1. You are Non-weight bearing on your Right leg. 2. Remember to use the walker or crutches at all times for protection and balance. 3. Remember to keep your Right leg elevated as much as possible to decrease swelling and control pain. Anticoagulation: Aspirin - You are being discharged on enteric-coated Aspirin 81mg by mouth twice a day. Continue this for the next 30 days. After your dose on 07/16/18 stop the Aspirin, unless you are told otherwise by your Orthopedic surgeon. Take this medication with food or large amounts (240 mL) ofwater or milk to minimize GI irritation. Diet: You may return to your usual [...] bowel movement. You can also take an qdia-mlh-hezmzrb medication, Miralax if needed to combat constipation. 2. If you need a renewal on your narcotic pain medication, you need to give the Orthopedic clinic enough time to process your request. This can take up to three days, so plan accordingly. 3. Continue acetaminophen (Tylenol) 1,000mg every 8 hours around the clock until 06/26/18. This can be effective in controlling pain [...] any NSAIDs including ibuprofen, Motrin or Aleve. Shower (ariella/sutures): 1. You can shower but remember your activity limitations and always have a chair available for balance and protection. DO NOT submerge the dressing/incision. 2. (Mepilex) Do not let water run over the operative dressing. If it becomes wet lightly pat the dressing dry. DO NOT submerge the incision. 3. You have ariella/sutures. Always cover them with a waterproof dressing or plastic bag when showering until they are removed. 4. After ariella/sutures are removed you can let water run gently over the incision. Wound (Mepilex): 1. Staple/suture removal 2 weeks after surgery (approximately 06/30). 2. Do not lift the edge of the Mepilex dressing to inspect the incision, it will not re-adhere. Remove your operative dressing 7 days from your surgery (06/23). When it is removed you can leave the incision open to air or cover it with a light dressing. 3. If you have lots of drainage when you get home (and it is before 06/23), remove this operative dressing and replace it with dry sterile gauze. Continue with daily dressing changes (and as needed) until the drainage stops, then remove the dressing and leave the incision open to air or lightly covered. Wound Care: 1. Suture/staple removal 2 weeks post-op (at follow-up). Ex-fix or pin site care: Dressing change daily with dry sterile dressings. You should clean around the pin sites at least daily with sterile normal saline. Do not apply any antibiotic ointment around the pins. You should gently wrap a dry sterile dressing around the pins if there is any drainage. Monitor the sites for increased redness, pain or drainage. Call your doctor ([phone]) if you develop: 1. Fever greater than 100.5 2. Severe nausea or vomiting 3. Increasing pain that is not controlled by pain medications 4. Increasing redness, swelling, or drainage from incisions 5. Change in sensation FOLLOW-UP APPOINTMENTS: Future Appointments Date Time Provider Department Center 06/30/2018 2:30 PM Concetta Hull PA [facility] If you have questions or concerns: Saturday through Saturday, 8 AM - 5 PM, please call Cortney Egan MD, 's office at . If it is after 5 PM or on the weekend, please call and ask to speak with the Orthopedic resident on-call. General Instructions None Future Appointments and Orders Future Appointments and Orders Future Appointments Provider Department Dept Phone 06/30/2018 2:30 PM Concetta Hull PA [facility] at [place] Arrive at: [facility] Se[employer] Area [address]D [phone] Future Orders Complete By Expires Referral to Home Health - at DISCHARGE [[id number] CPT(R)] As directed Process Instructions: Scheduling Instructions: Comments: DOCUMENTATION FOR VNA SERVICES (INCLUDING THOSE PATIENTS WITH MEDICARE COVERAGE REQUIRING HOME VNA SERVICES AND/OR HOSPICE SERVICES) PATIENT'S LOCATION: Sravan R Humza [address] [address] (home) Cell: Telephone Information: Dietary Server's Name: self In discussion with the attending physician, it is certified that this patient is under their care and that they, or a Nurse Practitioner,Clinical Nurse specialist or Physician Hook Puller who is working directly with them, had a face to face encounter that meets the physician face to face encounter requirements with this patient on 06/17/18 The encounter with the patient was in whole, or in part, for the following medical condition, which is the primary reason for home health care services: External fixator Tib/fib In discussion with the provider, it is certified that, based on their findings, the following services are medically necessary for home health services. To provide the following care/treatments with the clinical findings supporting the need for servicesas follows: HOME CARE ORDERS: RN ORDERS:assess pin sites, reenforce teaching of pin care, Assess wound or incision, vital signs, cardiopulmonary status, nutrition, hydration, elimination, meds effectiveness and management; reinforce education re health issues HOME HEALTH CARE AGENCY: Please call [facility] prior to sending a referral to this agency to confirm that they have the ability to meet the needs of the patient. [facility] in [place], [place] and [phone] Startof care: 24-48 hours from discharge Please note that any additional orders needs or changes will need to be obtained from this patient'sPCP: Cresencio Angel DO [address] [facility] [id number] All VNA agencies which cover the area of patient's residence have been reviewed, either verbally or in writing, and patient/family have chosen the home health care agency noted Questions: Agency name and contact information: [facility] Patient location post discharge: home What services are requested: Registered Nurse Start date: Responsible MD post discharge contact info: PCP Referral to Physical Therapy [[id number] Custom] As directed Process Instructions: Note: Please indicate in the comments any additional Instructions, Precautions or Contra-indications. Scheduling Instructions: Questions: Reason for PT: S/P Right tib/fib osteotomy, ringed external fixator placement, Specialty Program Eval: Modalities could include: Treatment Focus: Primary Care Provider: Cresencio Angel DO [phone] Discharge References/Attachments None documented in this encounter Discharge Instructions Patient InstructionsYulissa Alejandro APRN - 06/16/2018 11:02 AM EDT Activity level: 1. You are Non-weight bearing on your Right leg. 2. Remember to use the walker or crutches at all times for protection and balance. 3. Remember to keep your Right leg elevated as much as possible to decrease swelling and control pain. Anticoagulation: Aspirin - You are being discharged on enteric-coated Aspirin 81mg by mouth twice a day. Continue this for the next 30 days. After your dose on 07/16/18 stop the Aspirin, unless you are told otherwise by your Orthopedic surgeon. Take this medication with food or large amounts (240 mL) ofwater or milk to minimize GI irritation. Diet: You may return to your usual [...] bowel movement. You can also take an fdkw-gnn-yjpvtpr medication, Miralax if needed to combat constipation. 2. If you need a renewal on your narcotic pain medication, you need to give the Orthopedic clinic enough time to process your request. This can take up to three days, so plan accordingly. 3. Continue acetaminophen (Tylenol) 1,000mg every 8 hours around the clock until 06/26/18. This can be effective in controlling pain [...] any NSAIDs including ibuprofen, Motrin or Aleve. Shower (ariella/sutures): 1. You can shower but remember your activity limitations and always have a chair available for balance and protection. DO NOT submerge the dressing/incision. 2. (Mepilex) Do not let water run over the operative dressing. If it becomes wet lightly pat the dressing dry. DO NOT submerge the incision. 3. You have ariella/sutures. Always cover them with a waterproof dressing or plastic bag when showering until they are removed. 4. After ariella/sutures are removed you can let water run gently over the incision. Wound (Mepilex): 1. Staple/suture removal 2 weeks after surgery (approximately 06/30). 2. Do not lift the edge of the Mepilex dressing to inspect the incision, it will not re-adhere. Remove your operative dressing 7 days from your surgery (06/23). When it is removed you can leave the incision open to air or cover it with a light dressing. 3. If you have lots of drainage when you get home (and it is before 06/23), remove this operative dressing and replace it with dry sterile gauze. Continue with daily dressing changes (and as needed) until the drainage stops, then remove the dressing and leave the incision open to air or lightly covered. Wound Care: 1. Suture/staple removal 2 weeks post-op (at follow-up). Ex-fix or pin site care: Dressing change daily with dry sterile dressings. You should clean around the pin sites at least daily with sterile normal saline. Do not apply any antibiotic ointment around the pins. You should gently wrap a dry sterile dressing around the pins if there is any drainage. Monitor the sites for increased redness, pain or drainage. Call your doctor ([phone]) if you develop: 1. Fever greater than 100.5 2. Severe nausea or vomiting 3. Increasing pain that is not controlled by pain medications 4. Increasing redness, swelling, or drainage from incisions 5. Change in sensation FOLLOW-UP APPOINTMENTS: Future Appointments Date Time Provider Department Center 06/30/2018 2:30 PM Concetta Hull PA [facility] If you have questions or concerns: Saturday through Saturday, 8 AM - 5 PM, please call Cortney Egan MD, MD's office at . If it is after 5 PM or on the weekend, please call and ask to speak with the Orthopedic resident on-call. documented in this encounter Medications at Time of Discharge Medication Sig Dispensed Refills Start Date End Date budesonide-formoterol Inhale into the 0 (SYMBICORT) 80-4.5 [...] mouth 0 (HYDRODIURIL) 25 mg Tablet daily. acetaminophen 500 mg Take 2 capsules by 0 019 06/28/2018 Capsule mouth every 8 hours for 10 days. aspirin 81 mg Tablet, Take 1 tablet [...] 30 days. documented as of this encounter Progress Notes Gurpreet Pedersen MD - 06/18/2018 4:56 PM EDT Spoke to patient via telephone. Peripheral nerve block resolved appropriately. No residual weakness/numbness/decreased sensation. No sign of infection at injection site. Tolerating POs appropriately. Patient very satisfied with nerve block. Gurpreet Pedersen MD Pema Gruber RN - 06/18/2018 4:02 PM EDT Pt d/c to home per md order. Patient AOx4 hrr, lung sounds clear, no n/v sob or chest pain at time of discharge. +bs, lbm 4/10, voiding clear yellow urine. Patient ambulating with SBA and crutches at this time. Pain well controlled with dilaudid. All LDA's removed. All belongings home with patient. Prescriptions given to patient, all discharge instructions reviewed with patient. All questions answered. Report to VNA called and report faxed. Please see flowsheet for full assessment. Pema Gruber RN Luis No MD - 06/18/2018 2:12 PM EDT NONA drain pulled from RLE without issue or complication. Minimal serosang drainage in drain. 10 islets counted. Well tolerated by patient. Luis No MD 2:12 PM 06/18/18 Mychal Chen MD - 06/18/2018 6:23 AM EDT ORTHOPAEDIC SURGERY INPATIENT PROGRESS NOTE Patient Name: Sravan Ching Age: 47 y.o. Surgery/Issue: Right Tibia-Fibula Osteotomies, Application of Ringed External Fixator for Malunion Attending: Dr. Egan Date of surgery: 06/16/2018 SUBJECTIVE / INTERVAL HISTORY: Mr. Ching is doing well this morning. He is quite comfortable this morning. He is tolerating a diet and voiding spontaneously. Denies chest pain or shortness of breath. Tolerating PO, voiding and passing flatus. Active Hospital Problems Diagnosis ??? S/P Right tib/fib osteotomy, ringed external fixator placement, 06/16/18 (Dr Egan) ??? Tibial deformity, acquired, right Resolved Hospital Problems No resolved problems to display. Active Non-Hospital Problems Diagnosis ??? Tibia/fibula fracture, left, open type III, with malunion, subsequent encounter MEDICATIONS: ??? ipratropium-albuterol (DUONEB) 0.5 mg-3 mg(2.5 mg base)/3 mL nebulizer solution 3 mL ??? budesonide-formoterol (SYMBICORT) 80-4.5 mcg/actuation inhaler 2 Inhalation ??? pantoprazole (PROTONIX) tablet 40 mg ??? sodium chloride 0.9 % flush 5 mL ??? sodium chloride 0.9 % flush 5-20 mL ??? lidocaine (XYLOCAINE) 10 mg/mL (1 %) injection 3 mg ??? polyethylene glycol (MIRALAX) packet 17 g ??? senna-docusate (PERICOLACE) 8.6-50 mg per tablet 2 tablet ??? ondansetron (ZOFRAN) injection 4 mg ??? sodium chloride 0.9% infusion ??? acetaminophen (TYLENOL) tablet 1,000 mg ??? enoxaparin (LOVENOX) injection 40 mg ??? hydroCHLOROthiazide (HYDRODIURIL) tablet 25 mg ??? losartan (COZAAR) tablet 50 mg ??? HYDROmorphone (DILAUDID) tablet 2 mg OR HYDROmorphone (DILAUDID) tablet 4 mg OR HYDROmorphone (DILAUDID) tablet 6 mg ??? sodium chloride 0.9% 1,000 mL (06/17/18 0018) OBJECTIVE: Temp: [36.5 ??C (97.7 ??F)-37 ??C (98.6 ??F)] Resp: [16-19] BP: (118-158)/(83-91) Intake/Output Summary (Last 24 hours) at 06/18/2018 0623 Last data filed at 06/18/2018 0400 Gross per 24 hour Intake 5 ml Output 3125 ml Net -3120 ml BMI: Weight: 97.5 kg (215 lb) (06/16/18 0602) Body mass index is 33.67 kg/m??. Physical Exam: General: Comfortable appearing male lying in bed in no acute distress, alert and oriented, answeringquestions appropriately, pleasant affect. CV: Regular rate and rhythm by peripheral palpation. Resp: Breathing comfortably on room air. RLE: Ringed external fixator present to lower leg. Gauze dressings and Deo wrap clean and dry. Sensation intact to light touch below the knee. Able to plantarflex/dorsiflex the ankle, able to fire FHL, unable to fire EHL (baseline) Brisk capillary refill distally, foot warm/well-perfused Drain: 5 mL serosanguineous fluid overnight. Scant output in bulb now. Lab Results Component Value Date NA 135 06/17/2018 K 3.9 06/17/2018 CL 99 06/17/2018 CO2 26 06/17/2018 BUN 11 06/17/2018 CREATININE 0.85 06/17/2018 GLUCOSE 127 06/17/2018 CALCIUM 8.6 06/17/2018 Lab Results Component Value Date WBC 13.5 (H) 06/17/2018 HGB 13.3 (L) 06/17/2018 HCT 37.9 (L) 06/17/2018 MCV 88.1 06/17/2018 PLATELET 243 06/17/2018 IMAGIN06/16/18 Xray Right Tibia-Fibula: Proximal tibia-fibula osteotomies are seen. Varus deformity is corrected. Ringed external fixator inplace with multiple pins in tibia. ASSESSMENT / PLAN: Sravan Ching is a 47 y.o. male with history of right Gustilo III open tibia-fibula fracture and malunion who is now 2 Days Post-Op from right tibia-fibula osteotomy and applicationof ringed external fixator by Dr. Egan. Recovering well post-op. Likely d/c home today/tomorrow. Activity: NWB RLE Closure: Sutures (remove 10-14 days). Dressing: Mepilex, DEO to right leg. Drain: Bulb suction drain to be pulled when output minimal or prior to patient discharge. Anticoagulation: Lovenox 40mg SQ/day for 30 days. Antibiotics: Periop Ancef. Consults: PT/OT Dispo: Per PT/OT, likely home. Follow-up: Scheduled. Mychal Chen MD 06/18/2018 Future Appointments Date Time Provider Department Center 06/30/2018 2:30 PM Concetta Hull PA [facility] Associated attestation - Cortney Egan MD - 06/19/2018 12:43 PM EDT Patient seen and examined. Agree with resident note. Reny Egan MD Department of Orthopaedics 06/19/18 Sawyer Griffin MD - 06/17/2018 5:22 AM EDT ORTHOPAEDIC SURGERY INPATIENT PROGRESS NOTE Patient Name: Sravan Ching Age: 47 y.o. Surgery/Issue: Right Tibia-Fibula Osteotomies, Application of Ringed External Fixator for Malunion Attending: Dr. Egan Date of surgery: 06/16/2018 SUBJECTIVE / INTERVAL HISTORY: Mr. Ching is doing well this morning. He reports having some nausea post- operatively that he attributes to the Oxycodone. After switching to PO Dilaudid he reports the nausea resolved. He received a pre-operative right femoral nerve and sciatic/popliteal nerve block which he reports is still in effectgiven his numbness below the knee and inability to move his toes/ankle. He is tolerating a diet and voiding spontaneously. Denies chest pain or shortness of breath. Active Hospital Problems Diagnosis ??? S/P Right tib/fib osteotomy, ringed external fixator placement, 06/16/18 (Dr Egan) ??? Tibial deformity, acquired, right Resolved Hospital Problems No resolved problems to display. Active Non-Hospital Problems Diagnosis ??? Tibia/fibula fracture, left, open type III, with malunion, subsequent encounter MEDICATIONS: ??? vancomycin (VANCOCIN) injection ??? ipratropium-albuterol (DUONEB) 0.5 mg-3 mg(2.5 mg base)/3 mL nebulizer solution 3 mL ??? budesonide-formoterol (SYMBICORT) 80-4.5 mcg/actuation inhaler 2 Inhalation ??? pantoprazole (PROTONIX) tablet 40 mg ??? sodium chloride 0.9 % flush 5 mL ??? sodium chloride 0.9 % flush 5-20 mL ??? lidocaine (XYLOCAINE) 10 mg/mL (1 %) injection 3 mg ??? polyethylene glycol (MIRALAX) packet 17 g ??? senna-docusate (PERICOLACE) 8.6-50 mg per tablet 2 tablet ??? ondansetron (ZOFRAN) injection 4 mg ??? sodium chloride 0.9% infusion ??? acetaminophen (TYLENOL) tablet 1,000 mg ??? enoxaparin (LOVENOX) injection 40 mg ??? hydroCHLOROthiazide (HYDRODIURIL) tablet 25 mg ??? losartan (COZAAR) tablet 50 mg ??? HYDROmorphone (DILAUDID) tablet 2 mg OR HYDROmorphone (DILAUDID) tablet 4 mg OR HYDROmorphone (DILAUDID) tablet 6 mg ??? sodium chloride 0.9% 1,000 mL (06/17/18 0018) OBJECTIVE: Temp: [36.3 ??C (97.3 ??F)-36.8 ??C (98.2 ??F)] Heart Rate: [61-90] Resp: [13-21] BP: (93-142)/(49-103) Intake/Output Summary (Last 24 hours) at 06/17/2018 0523 Last data filed at 06/17/2018 0415 Gross per 24 hour Intake 3335 ml Output 2960 ml Net 375 ml BMI: Weight: 97.5 kg (215 lb) (06/16/18 0602) Body mass index is 33.67 kg/m??. Physical Exam: General: Comfortable appearing male lying in bed in no acute distress, alert and oriented, answeringquestions appropriately, pleasant affect. CV: Regular rate and rhythm by peripheral palpation. Resp: Breathing comfortably on room air. RLE: Ringed external fixator present to lower leg. Gauze dressings and Deo wrap clean and dry. No sensation to light touch below the knee. Unable to plantarflex/dorsiflex ankle or fire EHL/FHL. Brisk capillary refill distally, foot warm/well-perfused Drain: 170 mL serosanguineous fluid overnight. Lab Results Component Value Date NA 135 06/17/2018 K 3.9 06/17/2018 CL 99 06/17/2018 CO2 26 06/17/2018 BUN 11 06/17/2018 CREATININE 0.85 06/17/2018 GLUCOSE 127 06/17/2018 CALCIUM 8.6 06/17/2018 Lab Results Component Value Date WBC 13.5 (H) 06/17/2018 HGB 13.3 (L) 06/17/2018 HCT 37.9 (L) 06/17/2018 MCV 88.1 06/17/2018 PLATELET 243 06/17/2018 IMAGIN06/16/18 Xray Right Tibia-Fibula: Proximal tibia-fibula osteotomies are seen. Varus deformity is corrected. Ringed external fixator inplace with multiple pins in tibia. ASSESSMENT / PLAN: Sravan Ching is a 47 y.o. male with history of right Gustilo III open tibia-fibula fracture and malunion who is now 1 Day Post-Op from right tibia-fibula osteotomy and application of ringed external fixator by Dr. Egan. Activity: NWB RLE. Closure: Sutures (remove 10-14 days). Dressing: Mepilex, DEO to right leg. Drain: Bulb suction drain to be pulled when output minimal or prior to patient discharge. Anticoagulation: Lovenox 40mg SQ/day for 30 days. Antibiotics: Periop Ancef. Consults: PT/OT Dispo: Per PT/OT, likely home. Follow-up: Scheduled. Sawyer Griffin MD 06/17/2018 Future Appointments Date Time Provider Department Center 06/30/2018 2:30 PM Concetta Hull PA [facility] Associated attestation - Cortney Egan MD - 06/17/2018 7:01 AM EDT Patient seen and examined. Agree with resident note. NWB RLE, keep drain in place until output <5cc/shift or prior to discharge. ROMAT R knee. PT/OOB. Dispo planning. Reny Egan MD Department of Orthopaedics 06/17/18 Kelsey Solorzano, RN - 06/16/2018 12:20 PM EDT Report to [facility]. Pt sleeping off and on. Stephanie po sips. States pain is tolerable. Luis No MD - 06/16/2018 11:25 AM EDT ORTHOPAEDIC SURGERY INPATIENT PROGRESS NOTE Patient Name: Sravan Ching Age: 47 y.o. Surgery/Issue: Right tib/fib osteotomy, ringed external fixator placement Attending: Dr. Egan Date of surgery: 06/16/2018 SUBJECTIVE / INTERVAL HISTORY: Mr. Ching is doing well post op. He denies chest pain, SOB, N/V and his pain is relatively well controlled. SHx: Served in REVENTIVE. FOCUSED REVIEW OF SYSTEMS: as above. Active Hospital Problems Diagnosis ??? S/P Right tib/fib osteotomy, ringed external fixator placement, 06/16/18 (Dr Egan) ??? Tibial deformity, acquired, right Resolved Hospital Problems No resolved problems to display. Active Non-Hospital Problems Diagnosis ??? Tibia/fibula fracture, left, open type III, with malunion, subsequent encounter MEDICATIONS: ??? midazolam (PF) (VERSED) injection 1 mg ??? fentaNYL (PF) 50mcg/mL injection ??? sodium chloride 0.9 % flush 5-20 mL ??? lactated ringers infusion ??? HYDROmorphone (DILAUDID) injection 0.4-0.6 mg ??? naloxone (NARCAN) injection 0.04 mg ??? ondansetron (ZOFRAN) injection 4 mg ??? lactated ringers infusion ??? vancomycin (VANCOCIN) injection ??? ipratropium-albuterol (DUONEB) 0.5 mg-3 mg(2.5 mg base)/3 mL nebulizer solution 3 mL ??? sodium chloride 0.9% infusion ??? ceFAZolin (ANCEF) 1g in dextrose 5% 50mL ??? oxyCODONE (ROXICODONE) immediate release tablet 5 mg OR oxyCODONE (ROXICODONE) immediate release tablet 10 mg OR oxyCODONE (ROXICODONE) immediate release tablet 15 mg ??? acetaminophen (TYLENOL) tablet 1,000 mg ??? lactated Ringers 1,000 mL (06/16/18 0715) ??? lactated Ringers 1,000 mL (06/16/18 1100) ??? sodium chloride 0.9% 1,000 mL (06/16/18 1101) OBJECTIVE: Temp: [36.5 ??C (97.7 ??F)-36.7 ??C (98.1 ??F)] Heart Rate: [61-82] Resp: [15-21] BP: (102-134)/(49-93) Intake/Output Summary (Last 24 hours) at 06/16/2018 1125 Last data filed at 06/16/2018 1003 Gross per 24 hour Intake 1100 ml Output 190 ml Net 910 ml BMI: Weight: 97.5 kg (215 lb) (06/16/18 0602) Body mass index is 33.67 kg/m??. PE: General: awake/alert, responds to questions CV: RRR assessed peripherally Resp: Breathing comfortably on RA RLE: Ringed ex fix secure RLE w/ dressing c/d/i; NONA drain w/serosang output Sensory intact to light touch to thigh, but diminished to dorsum/plantar aspects of foot (likely secondary to block wearing off). No motor currently to EHL/FHL/TA (likely secondary to block wearing off) Brisk capillary refill distally, foot warm/well-perfused No results found for: WBC, HGB, HCT, MCV, PLATELET IMAGING: XR Tib/Fibula: Ringed ex fix in appropriate position without signs of acute complication. ASSESSMENT / PLAN: Sravan Ching is a 47 y.o. male Day of Surgery 06/16 s/p Right tib/fib osteotomy, ringed external fixator placement. Recovering well post op and will continue to monitor return of sensation/motor function of RLE as block wears off. Activity: NWB RLE Closure: Sutures (remove 10-14 days) Dressing: Mepilex, DEO to leg Drain: Bulb suction, pull when output minimal or pt d/c. Anticoagulation: Lovenox 40mg SQ/day for 30 days Antibiotics: ancef periop Consults: PT/OT Dispo:Per PT/OT, likely home Follow-up: scheduled Luis No MD 06/16/2018 Future Appointments Date Time Provider Department Center 06/30/2018 2:30 PM Concetta Hull PA [facility] Associated attestation - Cortney Egan MD - 06/17/2018 7:01 AM EDT Patient seen and examined. Agree with resident note. NWB, ROMAT R knee. PT/OOB. Pain control. Dispo planning. Reny Egan MD Department of Orthopaedics 06/17/18 documented in this encounter H&P Notes Mychal Chen MD - 06/16/2018 6:13 AM EDT 24-HOUR UPDATE Sravan Ching's history and physical exam have been reviewed and completed. There has been no interval change from that of the pre-operative history and physical exam done within the last 30 days. CV: RRR, no RMG Pulm: L CTAB Mychal Chen MD PGY-2 P. [phone] 06/16/18 6:13 AM documented in this encounter Miscellaneous Notes Plan of Care - Leila Garcia, PT - 06/18/2018 1:34 PM EDT Physical Therapy Treatment Treatment Number PT: 2 Pertinent History of Current Problem: 47 y.o male admitted for R tib fib osteotomy and external fixator for non-unioni Precautions/Restrictions: weight bearing Precautions Comments: ring ext fixator, R foot drop , NWB RLE Assessment: Pt seen today for gait training, application of modified post op shoe to keep R foot in neutral due to foot drop. Pt stretching R ankle with leg marble setter. Ambulated in the hallway with crutches, negotiated stairs. Tolerating positioning. Plan for discharge today, outpt PT to address R knee and ankle deficits. Please see the flow sheet below for patient details and mobility. Pt would benefitfrom ongoing physical therapy interventions. Staff Mobility Recommendations: axillary crutches and supervision NWB RLE Anticipated Discharge Disposition: home with assist, home with outpatient services LEILA GARCIA, PT Pager: [phone] Inpatient Physical Therapy 06/18/18 1334 Rehab Evaluation Document Type therapy note (daily note) Total Evaluation Minutes, Physical Therapy 23 (TEF x 2) Patient Effort good Symptoms Noted During/After Treatment fatigue General Information Patient Profile Review yes Patient/Family/Caregiver Comments/Observations That feels so much better 2nd strap on post op shoe General Observations of Patient awake, dressed, sitting in the chair, RLE elevated Precautions/Restrictions weight bearing Precautions Comments ring ext fixator, R foot drop , NWB RLE Treatment Number PT 2 Vital Signs Heart Rate (!) 136 (notified QA MANAGER) SpO2 96 % O2 Device RA Pain Scale/Rating Pain Assessment Scale Word (verbal rating pain scale) Pain Level (less tingling with splint on RLE) POSS (Pasero Opioid-Induced Sed Scale) 1 - Awake and alert ROM (Range of Motion) Additional Documentation (R ankle to neutral, R knee flexion 80 degrees) Transfer Assessment/Treatment [place] (Sit-Stand Transfers) supervision required [place] (Stand-Sit Transfers) supervision required Txi-[id number]-[id number] Assistive Device (Transfers) axillary crutches Comment (Transfers) pt transferring with greater steadiness today Gait Assessment/Treatment Impairments (Gait) balance impaired (due to NWB RLE ) Assistive Device (Gait) axillary crutches [place] (Gait) supervision required Distance in Feet (Gait) ~80 ft Comment (Gait) pt ambulated with crutches, R splint in place Sensory Assessment/Intervention Additional Documentation (reports less tingling RLE w/stretch placement of support) Coping Verbalized Emotional State acceptance Observed Emotional State accepting;calm Plan of Care Review Plan Of Care Reviewed With patient;significant other Progress improving Physical Therapy Goal Types Physical Therapy Goal Types Gait Training Goal (Group);Transfer Training Goal (Group) Gait Training Goal Gait Training Goal, Date Established 06/17/18 Gait Training Goal, Time to Achieve 2 - 3 days Gait Training Goal, [place] Level conditional independence Gait Training Goal, Assist Device crutches, axillary Gait Training Goal, Distance to Achieve 50 ft Gait Training Goal, Additional Goal negotiate 4 stairs with crutch and railing Gait Training Goal, Date Goal Reviewed 06/18/18 Gait Training Goal, Outcome goal met Transfer Training Goal Transfer Training Goal, Date Established 06/17/18 Transfer Training Goal, Time to Achieve 2 - 3 days Transfer Training Goal, Activity Type xcp-af-zhtzz/jrsgk-ip-lom;zgr-sy-yuwiq/mgjds-aq-wjo;toilet Transfer Train Goal, [place] Level conditional independence Transfer Training Goal, Assist Device crutches, axillary Transfer Train Goal, Date Goal Reviewed 06/18/18 Transfer Training Goal, Outcome goal met Clinical Impression Anticipated Equipment Needs at Discharge (pt has all necessary equipment) Anticipated Discharge Disposition home with assist;home with outpatient services Plan of Care - Yulissa Jackman RN - 06/18/2018 2:58 AM EDT Problem: Patient Care Overview Goal: Plan of Care Review Outcome: Ongoing (Interventions Implemented as Appropriate) 06/18/18243 Coping/Psychosocial Plan Of Care Reviewed With patient Plan of Care Review Progress progress toward functional goals as expected OUTCOME EVALUATION NOTE: OUTCOME SUMMARY: Patient is alert and oriented x4. VSS. Pain controlled with scheduled and PRN meds, see MAR. Patientreporting numbness/tingling to RLE. Ringed ex fix in place, no drainage. NONA in place. Patient sleeping between care. Will continue to monitor. PLAN MOVING FORWARD: -Pain Control -Mobilize -Neurovascular checks -D/c planning INDIVIDUALIZED FALL PREVENTION: Fall Score: 45, high Baseline mobility: up ad tricia Assistance: -1-2 assist w/ crutches Supervision: -Arms-Reach for all transfers and ambulation Surveillance: -Masimo -Purposeful Rounding -Team Care -Bedside Nurse Knowledge Exchange CPG OUTCOME EVALUATION: Goal: Fall Prevention-Safe Patient Handling Outcome: Ongoing (Interventions Implemented as Appropriate) 06/17/18192906/18/18243 Daily Care Interventions Self-Care Promotion -- independence encouraged;BADL personal objects within reach;BADL personal routines maintained Marie Fall Risk History of Falling 0 -- Secondary Diagnosis 15 -- Ambulatory Aids 0 -- Intravenous Therapy/Heparin/Saline Lock 20 -- Gait/Transferring 10 -- Mental Status 0 -- Score 45 -- OTHER Marie Fall Risk High -- Restraint Interventions Safety Promotion/Fall Prevention activity supervised;fall prevention program maintained;nonskid shoes/slippers when out of bed;safety round/check completed -- Positioning Body Position supine, head elevated;independent -- Activity Activity Type activity adjusted per tolerance -- Activity Assistance Provided assistance, 1 person -- Assistive Device Utilized crutches -- Goal: Infection Control Outcome: Ongoing (Interventions Implemented as Appropriate) 06/17/181929 Safety Interventions Isolation Precautions standard precautions maintained Infection Prevention barrier precautions utilized;environmental surveillance performed;rest/sleep promoted Coping Strategies Supportive Measures active listening utilized;relaxation techniques promoted;self-care encouraged;verbalization of feelings encouraged Goal: Interdisciplinary Rounds/Family Conf Outcome: Ongoing (Interventions Implemented as Appropriate) 06/18/18243 Interdisciplinary Rounds/Family Conf Participants nursing;patient Problem: Pain, Acute (Adult) Intervention: Monitor/Manage Analgesia 06/17/181929 Manage Acute Burn Pain Pain Management Interventions relaxation techniques promoted;pain management plan reviewed with patient/caregiver Safety Interventions Medication Review/Management medications reviewed Intervention: Mutually Develop/Implement Acute Pain Management Plan 06/17/181929 Manage Acute Burn Pain Pain Management Interventions relaxation techniques promoted;pain management plan reviewed with patient/caregiver Intervention: Support/Optimize Psychosocial Response to Acute Pain 06/17/181929 Coping Strategies Supportive Measures active listening utilized;relaxation techniques promoted;self-care encouraged;verbalization of feelings encouraged Diversional Activities television;smartphone Family/Support System Care self-care encouraged Trust Relationship/Rapport care explained;choices provided;questions encouraged;thoughts/feelings acknowledged Goal: Identify Related Risk Factors and Signs and Symptoms Related risk factors and signs and symptoms are identified upon initiation of Human Response Clinical Practice Guideline (CPG) Outcome: Ongoing (Interventions Implemented as Appropriate) 06/17/18 0757 Pain, Acute Related Risk Factors (Acute Pain) surgery Goal: Acceptable Pain Control/Comfort Level Patient will demonstrate the desired outcomes by discharge/transition of care. Outcome: Ongoing (Interventions Implemented as Appropriate) 06/18/18 0244 Pain, Acute (Adult) Acceptable Pain Control/Comfort Level making progress toward outcome Problem: Skin Integrity Impairment, Risk/Actual (Adult) Intervention: Promote/Optimize Nutrition 06/18/18243 Nutrition Interventions Oral Nutrition Promotion rest periods promoted Intervention: Prevent/Manage Excess Moisture 06/17/181929 Skin Interventions Skin Protection adhesive use limited;tubing/devices free from skin contact Intervention: Prevent/Minimize Sheer/Friction Injuries 06/17/181929 Skin Interventions Pressure Reduction Devices pressure-redistributing mattress utilized Pressure Reduction Techniques frequent weight shift encouraged Positioning Positioning/Transfer Devices pillows;in use Goal: Identify Related Risk Factors and Signs and Symptoms Related risk factors and signs and symptoms are identified upon initiation of Human Response Clinical Practice Guideline (CPG) Outcome: Ongoing (Interventions Implemented as Appropriate) 06/17/18 0758 Skin Integrity Impairment, Risk/Actual Skin Integrity Impairment, Risk/Actual: Related Risk Factors surgery/procedure Goal: Skin Integrity/Wound Healing Patient will demonstrate the desired outcomes by discharge/transition of care. Outcome: Ongoing (Interventions Implemented as Appropriate) 06/18/184 Skin Integrity Impairment, Risk/Actual (Adult) Skin Integrity/Wound Healing making progress toward outcome Initial Assessments - Marianna Ramirez RN - 06/17/2018 5:27 PM EDT Office of Care Management Initial Assessment Marianna Ramirez RN reviewed record and discussed patient with Care Team. Source of Information: patient Introduced self/reviewed role; services accepted. Reason for Hospitalization: Tib/Fib FX external fixation No past medical history on file. Hospitalizations Within the Past 30 Days: no Anticipated Length Of Stay (If known): 2-3 days Current Decision-Making Capacity: able to make decisions Advance Care Planning: coping Current Coping/Education/Information Needs: coping Current Functional Ability: SBA Functional Status Prior to Admission: independent Home Environment: lives with 20 yo daughter who is now about 24-26 weeks with twins, Social & Family Supports/Community Resources: GF daughter Behavioral Health History: na Substance Use/Abuse: Social History Tobacco Use ??? Smoking status: Former Smoker Types: Cigarettes Last attempt to quit: 02/07/2004 Years since quittin.3 ??? Smokeless tobacco: Former User Types: Chew Quit date: 02/07/2004 ??? Tobacco comment: 02/07/04 Substance Use Topics ??? Alcohol use: Yes Alcohol/week: 0.6 oz Types: 1 Shots of liquor per week Comment: very rarely ??? 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 A letter describing our affiliations was reviewed with them and theywere educated about their right to choose where referrals are placed. Patient requests referral to Please call [facility] prior to sending a referral to this agency to confirm that they have the ability to meet the needs of the patient. [facility] in [place], [place] and [phone] Expected date of discharge: 4/10 19. Referral routed to the Special Projects Manager for matching with agency/vendor and to provide any required information. DME: none needed Dialysis: na Community Resources: no Transportation: Family/friends Other: Anticipated Barriers to Discharge/Special Considerations: no barriers Assessment: S/P right tib/fib osteotomy ringed external fixator placement Plan: discharge to home A member of the Care Management team will continue to monitor progress, follow for continuity of care and assist with transition of care planning. Marianna Ramirez, RN Pager: [phone] Plan of Care - Pema Gruber RN - 06/17/2018 2:37 PM EDT Problem: Patient Care Overview Goal: Plan of Care Review Outcome: Ongoing (Interventions Implemented as Appropriate) 06/16/18 1620 06/17/18 0803 Coping/Psychosocial Plan Of Care Reviewed With -- patient Plan of Care Review Progress progress toward functional goals as expected -- OUTCOME EVALUATION NOTE: ?? OUTCOME SUMMARY: ?? Pt A+O, VSS. Pain controlled with PRN dilaudid. Ringed ex-fix to RLE intact w/ deo bandage. Still endorses numbness to RLE d/t block, able to lift leg now and wiggle great toe. Voiding spontaneously inurinal. Did have some nausea this AM, zofran given with +effect. Worked with PT today and got OOB and up to chair with crutches. No other acute events, will continue to monitor. PLAN MOVING FORWARD: ?? Pain control, mobility, d/c planning ?? INDIVIDUALIZED FALL PREVENTION INTERVENTIONS: ?? Patient-specific fall risk factors per assessment: [current deficits]: Pain, narcotics, hospital environment, ex-fix RLE ?? Assistance [level of assistance required for transfers and ambulation]: 2 assist w/ crutches ?? Supervision [direct monitoring required during toileting and ADLs]: Hands on ?? Surveillance [continuous indirect monitoring]: Masimo, purposeful rounding ?? Patient-specific fall prevention interventions for sensory deficits provided, if applicable: [X] N/A ? CPG GOAL OUTCOME EVALUATION: ?? Plan of Care - Leila Garcia, PT - 06/17/2018 1:43 PM EDT Physical Therapy Evaluation Pertinent History of Current Problem: 47 y.o male admitted for R tib fib osteotomy and external fixator for non-unioni Precautions/Restrictions: fall, weight bearing Precautions Comments: NWB RLE, ringer ex-fix, R foot drop Assessment: Pt seen for evaluation today and presents with Increased pain and Decreased strength, ROM Impaired balance, Impaired functional mobility, Abnormal gait and Decreased activity tolerance. Pt seen in am and again in pm for evaluation, pt education, gait instruction. OOB to chair, RLE elevated, stretched R ankle, pt performing R knee ROM. Using leg marble setter for stretches. Pt tolerated short ambulation, not ready to do stairs today, limited by pain and decreased endurance. Please see associatedflow sheet data below for objective information regarding today's session Staff Mobility Recommendations Axillary crutches, NWB RLE, RLE elevated, bedside commode in room dueto access to LEILA GUERRIER, PT Pager: [phone] Inpatient Physical Therapy 2017 PT Evaluation Code Rationale: ?? Diagnosis & Pertinent Co-Morbidities, personal factors, and present illness affecting Plan ofCare: Patient Active Problem List Diagnosis Code ??? Tibia/fibula fracture, left, open type III, with malunion, subsequent encounter S82.202R, S82.402R ??? Tibial deformity, acquired, right M21.961 ??? S/P Right tib/fib osteotomy, ringed external fixator placement, 06/16/18 (Dr Egan) Z98.890 Additional personal factors or co-morbidities that impact plan: ?? Total # of Factors: 0 1-2 3+ x ?? Examination of body system impairments, functional limitations and behaviors, and/or participation restrictions. Addressing 1-2 elements Addressing 3 + elements Addressing 4 + elements x ?? Clinical presentation: See assessment above. Stable/Uncomplicated Evolving/Fluctuating Symptoms Unstable/Unpredictable x ?? Clinical decision making of moderate complexity based on pt's functional performance as outlined in this evaluation. 06/17/18 1343 Rehab Evaluation Document Type evaluation Total Evaluation Minutes, Physical Therapy 50 Evaluation and TEF Patient Effort good Symptoms Noted During/After Treatment increased pain General Information Patient Profile Review yes Onset of Illness/Injury or Date of Surgery 06/16/18 Patient/Family/Caregiver Comments/Observations Doesn't like the walker, feels steadier with crutches General Observations of Patient partial chair position, RLE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
--- OUTSIDE RECORDS SUMMARY | 2021-11-16 10:47 | XMS_ITS | Encounter Summary ---
:1970 Author Organization [facility] [place] [address] Care Team Providers Name Role Phone , Cresencio Whitt Primary Care Provider Encounter Details Date Type Department Care Team Description 07/03/2018 Telephone Orthopaedics at [facility] Cortney Egan MD [facility] [place] [address] ORTHOPAEDIC SURGERY [phone] [place] [phone] (Wo rk) Social History Tobacco Use Types [...] Telephone Encounter - Blayne Siegel RN - 07/03/2018 1:00 PM EDT S/P Right tib/fib osteotomy, ringed external fixator placement, 06/16/18 (Dr Egan) [facility] calls to report pin site drainage from distal sites. Denies any concerns of infection Telephone Encounter - Vannesa Stanley RMA - 07/03/2018 12:55 PM EDT Subjective: Ex Fx - Wound SP Surgeon Role Cortney Egan MD Primary Mychal Chen MD Resident Procedure Laterality Anesthesia OSTEOTOMY, TIBIA & FIBULA (WRVU 17.48) 06/16/18 Barnes questions/Assessment: [facility] that one of the pin sites Looks as though it is getting larger in size. She stated that she does not believe that it is infection but is unsure of what todo. Call being transferred to Kia Siegel RN For triage. documented in this encounter Plan of Treatment Not on filedocumented as of this encounter Visit Diagnoses Not on filedocumented in this encounter Care Teams Hitch Technician Relationship Specialty Start Date End Date Cresencio Angel DO PCP - General Internal Medicine 04/24/18 [address] [place] [address] documented as of this encounter
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
--- OUTSIDE RECORDS SUMMARY | 2021-11-16 10:47 | XMS_ITS | Encounter Summary ---
:1970 Author Organization [facility] [place] [address] Care Team Providers Name Role Phone Cresencio Angel DO Primary Care Provider Encounter Details Date Type Department Care Team Description 07/07/[address] [facility] Cortney Egan [place] [facility] [place] [phone] ORTHOPAEDIC SURGERY [phone] [place], [place] [address] (Wo rk) Social History Tobacco [...] this encounter Miscellaneous Notes Telephone Encounter - Irma Normanleroy Loyd - 07/07/2018 2:30 PM EDT Ynes, a home health care RN called today reporting the middle part of the main incision had splitjust prior to her arrival. It was bleeding heavily, but has stopped. She cleaned it out, and it is already starting to scab over. Denies a deep incision, fever, night sweats, chills, pin sites look good. I instructed Ynes to have Sravan call if anything started to concern him, ie. Drainage from wound, fever, foul smell, or feeling unwell. Sravan has an appointment in clinic on where he will be evaluated as well. No further questions or concerns at this time. documented in this encounter Plan of Treatment Not on filedocumented as of this encounter Visit Diagnoses Not on filedocumented in this encounter Care Teams Aquatics Assistant Department Head Relationship Specialty Start Date End Date Cresencio Angel DO PCP - General Internal Medicine 04/24/[address] [place] [address] documented as of this encounter
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
--- OUTSIDE RECORDS SUMMARY | 2021-11-16 10:47 | XMS_ITS | Encounter Summary ---
:1970 Author Organization [facility] Address [address] [place] [address] Care Team Providers Name Role Phone Cresencio Angel DO Primary Care Provider Encounter Details Date Type Department Care Team Description 09/19/2018 Hospital En[place] [facility] [place]ia/fibula fracture, right , open type III, with malunion, subsequent encounter; [facility] [place] [address] Social History Tobacco Use Types Packs/Day Years [...] Diagnosis Comme nts XR TIBIA FIBULA Routine 09/19/2018 10:31 AM Tibia/fibula Resul ts for this BILAT EDT fracture, right, procedure a re in open type III, with the resu lts malunion, subsequent section . encounter XR FOOT MIN 3 VIEWS Routine 09/19/2018 10:31 AM Right foot patricia n Results for this RIGHT EDT procedure are i n the results section. documented in this encounter Results XR Tibia Fibula Bilat (Generic) (09/19/2018 10:31 AM EDT) Anatomical Region Laterality Modality Leg Bilateral Digital Radiography Specimen (Source) Anatomical Location Collection Method / Collectio n Time Received Time / Laterality Volume Impressions 09/19/2018 3:13 PM EDT Right tibial and fibular osteotomies as described above. Leg lengths as described above. Thank you for letting us participate in the care of this patient. For questions regarding this report, please contact th e number below. ? Electronically signed by: MARIAJOSE Clarke [facility] ([phone]), at 09/19/2018 3:13 PM Narrative 09/19/2018 3:13 PM EDT EXAMINATION: XR TIBIA FIBULA BILAT (GENERIC), XR KNEE STANDING ALIGNMENT (GENERIC) CLINICAL HISTORY: Status post right tibi al osteotomy and external fixation placement on 06/26/2018 TECHNIQUE: Frontal and lateral radiographs of the b ilateral tibiae and bilateral fibula were obtained. Also, frontal radiographs of the bilateral hips, knees, and ankles were obtained with the patient st anding and stitched together for the purpose of assessing the patient's stand ing alignment. COMPARISON: [facility] through 09/05/2018 FINDINGS: An external fixator device projects over and partly obscures the right tibia and right fibula. There were prior transverse osteotomies of the proximal one-thirds of the right tibial diaphysis and right fibular diaph ysis. There is unchanged alignment at the osteotomy sites, with unchanged post eromedial displacement at the fibular osteotomy by approximately 1 shaft-width . The craniocaudal distance between the fibular osteotomy fragments is measured at approximately 0.9 cm, whereas the craniocaudal distance between the tibial osteotomy fragments is measured at 2.3 cm. Again noted are underlying chronic postt raumatic changes of the right tibial and right fibular shafts. Numerous punctate foci of metallic shrapnel again project over the right calf soft tissues. The left tibia and left fibula are withi n normal limits. The bilateral lower extremity weightbear ing axes are midline. When measured from the superior margin of the femoral head to the tibial plafond, the right lower extremity is measured at 90.4 cm in gomez th and the left lower extremity is measured at 91.2 cm in length. When jaun ured from the superior margin of the femoral head to the medial femoral condy le weightbearing surface, the right femur is measured at 48.3 cm in length a nd the left femur is measured at 50.1 cm in length. When measured from the medial tibial spine 2 the tibial plafond, the right tibia is measured at 42.6 cm in le ngth and the left tibia is measured at 41.4 cm in length. Procedure Note Isabel Barron MD - 09/19/2018Formatting o f this note might be different from the original. EXAMINATION: XR TIBIA FIBULA BILAT (GENE ZOHAIB), XR KNEE STANDING ALIGNMENT (GENERIC) CLINICAL HISTORY: Status post right tibi al osteotomy and external fixation placement on 06/26/2018 TECHNIQUE: Frontal and lateral radiographs of the b ilateral tibiae and bilateral fibula were obtained. Also, frontal radiographs of the bilateral hips, knees, and ankles were obtained with the patient st anding and stitched together for the purpose of assessing the patient's stand ing alignment. COMPARISON: [facility] through 09/05/2018 FINDINGS: An external fixator device projects over and partly obscures the right tibia and right fibula. There were prior transverse osteotomies of the proximal one-thirds of the right tibial diaphysis and right fibular diaph ysis. There is unchanged alignment at the osteotomy sites, with unchanged post eromedial displacement at the fibular osteotomy by approximately 1 shaft-width . The craniocaudal distance between the fibular osteotomy fragments is measured at approximately 0.9 cm, whereas the craniocaudal distance between the tibial osteotomy fragments is measured at 2.3 cm. Again noted are underlying chronic postt raumatic changes of the right tibial and right fibular shafts. Numerous punctate foci of metallic shrapnel again project over the right calf soft tissues. The left tibia and left fibula are withi n normal limits. The bilateral lower extremity weightbear ing axes are midline. When measured from the superior margin of the femoral head to the tibial plafond, the right lower extremity is measured at 90.4 cm in gomez th and the left lower extremity is measured at 91.2 cm in length. When jaun ured from the superior margin of the femoral head to the medial femoral condy le weightbearing surface, the right femur is measured at 48.3 cm in length a nd the left femur is measured at 50.1 cm in length. When measured from the medial tibial spine 2 the tibial plafond, the right tibia is measured at 42.6 cm in le ngth and the left tibia is measured at 41.4 cm in length. IMPRESSION Right tibial and fibular osteotomies as described above. Leg lengths as described above. Thank you for letting us participate in the care of this patient. For questions regarding this report, please contact e number below. Cortney Egan MD IMG DX ORDERABLES XR Foot Min 3 views Right (Generic) [...] For questions regarding this report, please contact jaqueline number below. ? Electronically signed by: Merle Rojas [facility] ([phone]), at 09/19/2018 2:18 PM Narrative 09/19/2018 2:18 PM EDT EXAMINATION: XR [...] report, please contact th e number below. Electronically signed by: Merle Rojas [facility] ([phone]), at 09/19/2018 2:18 PM Cortney Egan MD IMG DX ORDERABLES documented in this encounter Visit Diagnoses Diagnosis Tibia/fibula fracture, right, open type III, with malunion, subsequent encounter Right foot pain Pain in limb documented in this encounter Care Teams Metal Ceiling Hanger Relationship Specialty Start Date End Date Cresencio Angel DO PCP - General Internal Medicine 04/24/[address] [place] [address] documented as of this encounter
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
--- OUTSIDE RECORDS SUMMARY | 2021-11-16 10:47 | XMS_ITS | Encounter Summary ---
:1970 Author Organization [facility] Address [place] [address] Care Team Providers Name Role Phone Cresencio Angel DO Primary Care Provider Encounter Details Date Type Department Care Team Description 07/18/2018 Orders Only Orthopaed[place] [facility] Cort[place] Egan, Tibia/fibula [facility] MD fracture, right, open Drive [facility] type III, [place] [address] [address] [address] arango, subsequent [phone] ORTHOPAEDIC encounter SURGERY [place] [id number] Social History Tobacco Use Types Packs/Day Years [...] encounter Results XR Tibia Fibula Right (Generic) (07/18/2018 10:42 AM EDT) Anatomical Region Laterality Modality Right Digital Radiography Specimen (Source) Anatomical Location Collection Method / Collectio n Time Received Time / Laterality Volume Impressions 07/18/2018 11:16 AM EDT Hardware is stable. The osteotomy cleft appears slightly increased when compared with the 2 most recent studies, consiste nt with ongoing correction. Thank you for letting us participate in the care of this patient. For questions regarding this report, please contact e number below. ? Electronically signed by: MARIAJOSE Abbasi Counts [facility] [address] [facility] ([phone]), at 07/18/2018 11:16 AM Narrative 07/18/2018 11:16 AM EDT EXAMINATION: XR TIBIA FIBULA RIGHT (GENERIC) CLINICAL HISTORY: right tib fib TECHNIQUE: 2 views RIGHT tibia and fibula COMPARISON: 07/10/2018 and 07/01/2018 FINDINGS: Hardware is partially imaged and is stab le in appearance. No findings for hardware fracture external fixation blake tori are stable in appearance. The osteotomy of the proximal tibia and fibu la are again demonstrated and are More apparent, likely secondary to sligh t widening of the osteotomy cleft rather than technical differences. Some punctat e radiopaque foreign body material is again demonstrated and appears unchanged . No acute fractures or dislocations. Stable deformity and healing changes of the old mid tibial fracture site. Procedure Note Colin Crook MD - 07/18/2018Format ting of this note might be different from the original. EXAMINATION: XR TIBIA FIBULA RIGHT (GENE ZOHAIB) CLINICAL HISTORY: right tib fib TECHNIQUE: 2 views RIGHT tibia and fibula COMPARISON: 07/10/2018 and 07/01/2018 FINDINGS: Hardware is partially imaged and is stab le in appearance. No findings for hardware fracture external fixation blake tori are stable in appearance. The osteotomy of the proximal tibia and fibu la are again demonstrated and are More apparent, likely secondary to sligh t widening of the osteotomy cleft rather than technical differences. Some punctat e radiopaque foreign body material is again demonstrated and appears unchanged . No acute fractures or dislocations. Stable deformity and healing changes of the old mid tibial fracture site. IMPRESSION Hardware is stable. The osteotomy cleft appears slightly increased when compared with the 2 most recent studies, consiste nt with ongoing correction. Thank you for letting us participate in the care of this patient. For questions regarding this report, please contact e number below. Cortney Egan MD IMG DX ORDERABLES documented in this encounter Visit Diagnoses Diagnosis Tibia/fibula fracture, right, open type III, with malunion, subsequent encounter Tibia/fibula fracture, right, open type III, with malunion, subsequent encounter documented in this encounter Care Teams Special Education Secretary Relationship Specialty Start Date End Date Cresencio Angel DO PCP - General Internal Medicine 04/24/[address] [place] [id number] documented as of this encounter
--- OUTSIDE RECORDS SUMMARY | 2021-11-16 10:47 | XMS_ITS | Encounter Summary ---
:1970 Author Organization [facility] Address [facility] [address] [place] [address] Care Team Providers Name Role Phone Cresencio Angel DO Primary Care Provider Reason for Referral Physical Therapy (Routine) - Specialty Diagnoses / Procedures Referred By Contact Refer red To Contact Diagnoses Tibia/fibula fracture, right, open type III, with malunion, subsequent encounter Concetta Hull PA [facility] [place] [address] Referral ID Status Reason Start Date Expiration Date Visits V isits Requested Authorized [id number] Evaluate and 08/20/2018 02/16/2019 1 1 Treat Non PCP Reason for Visit Reason Comments Follow Up Surgery right osteotomy tibia & fibu la 06/16/18 Encounter Details Date Type Department Care Team Description 08/20/2018 [place] [facility] [place] Hull Tibia/fibula [facility] fracture, right, open [facility] type III, [place] [address] arango, subsequent [phone] ORTHOPAEDIC encounter SURGERY [place], [place] [address] Social History Tobacco Use Types [...] Sign Reading Time Taken Comments Blood Pressure 129/81 08/20/2018 2:19 PM EDT Pulse 102 08/20/2018 2:19 PM EDT Temperature - - Respiratory Rate - - Oxygen Saturation - - Inhaled Oxygen Concentration - - Weight - - Height - - Body Mass Index - - documented in this encounter Progress Notes Concetta Hull PA - 08/20/2018 2:30 PM EDT PATIENT NAME: Sravan Ching AGE: 47 y.o. MR#: [id number] DATE OF VISIT: 08/20/2018 CHIEF COMPLAINT: 9 week FU post Right tibial osteotomy, external fixation placement. 06/16/18 (Julisa) HISTORY OF PRESENT ILLNESS: Mr. Ching is a 47 y.o. male who comes into clinic today regarding the right leg. The PT was last in to see myself on 07/30/2018 . Since this visit he has been doing well. He feels that the flexural is helping his sleep though he did discuss his sleep with his PCP who gave him a sleeping pill which has made big improvements on his sleep overall. He is unsure of what the medication is, however assures me that his doctor is aware of all the medications that he is using. He would like a PT Referral to work on his right ankle. Past medical history: Patient Active Problem List Diagnosis Date Noted ??? Tibial deformity, acquired, right 06/16/2018 ??? S/P Right tib/fib osteotomy, ringed external fixator placement, 06/16/18 (Dr Egan) 06/16/2018 ??? Tibia/fibula fracture, right, open type III, with malunion, subsequent encounter 05/02/2018 Medications: ??? HYDROmorphone (DILAUDID) 2 mg Tablet ??? cyclobenzaprine (FLEXERIL) 5 mg Tablet ??? HYDROcodone-acetaminophen (NORCO) 5-325 mg Tablet ??? acetaminophen (TYLENOL) 500 mg Tablet ??? [...] Last attempt to quit: 02/07/2004 Years since quittin.5 ??? Smokeless tobacco: Former User Types: Chew Quit date: 02/07/2004 ??? Tobacco comment: 02/07/04 Substance Use Topics ??? Alcohol use: Not Currently Alcohol/week: 0.6 oz Types: 1 Shots of liquor per week Comment: very rarely Review of systems: No chest pain or shortness of breath No fevers, night sweats or chills Vital signs: Most Recent Vitals: 08/20/18 1419 BP: 129/81 Pulse: (!) 102 Physical exam: Mr. Ching is a 47 y.o. male who is alert and oriented. He is in no acute discomfort and is resting comfortably in the exam room. External fixator in place. Pin sites were clean. No yu-incisional erythema noted No bogginess to palpation about the incision however there was a small amount of bloody drainage from the middle of the incision. No evidence of dehiscence. No malodor noted. Skin feels no warmer than surrounding tissue Incisions have completely healed. PT/DP pulses 2+. Superficial peroneal, deep peroneal, sural, saphenous, and tibial nerves intact to touch. Is not able to extend the great toe against resistance. Imaging studies: Tib fib films were obtained today showing osteotomy site and external fixator. Assessment and plan:: 47 y.o. year-old male now roughly 9 week FU post Right tibial osteotomy, external fixation placement. [facility] doing well. Pt seen and plan discussed in conjunction with Lucas Mendez, [place] technical services representative. We had a long discussion regarding the nature of Sravan Ching's chief complaint. We reviewed the imaging together which is described above. Clinically Sravan Ching seems to be handling things well.We discussed the prescription regarding adjusting the ex fix components. He can continue WBAT on this extremity. His next appointment, 08/29/18 will need to be a one hour appointment. He would like to discuss at this appointment how long he should expect the external fixator to be placed on his leg prior to removal. This plan was discussed with the patient and they are in agreement. All of the patient's questions were answered. The patient understand to contact us if they have any other questions or concerns. FU: 08/29/18, [facility] team clinic. Will need XR images of the right tibia fibula prior to this appointment. The appointment will need to be scheduled for one hour. Concetta Hull PA-C The above dictation was made with voice recogonition software documented in this encounter Plan of Treatment Scheduled Referrals Name Type Priority Associated Diagnoses Order S chedule Referral to Outpatient Referral Routine Tibia/fibula Ordered: Physical Therapy fracture, right, 019 open type III, with malunion, subsequent encounter documented as of this encounter Results XR Tibia Fibula Right (Generic) (08/29/2018 12:10 PM EDT) Anatomical Region Laterality Modality Right Digital Radiography Specimen (Source) Anatomical Location Collection Method / Collectio n Time Received Time / Laterality Volume Impressions 08/29/2018 1:37 PM EDT Posttraumatic deformity of the tibial shaft status post proximal tibial osteotomy and placement of an external f ixator. The degree of distraction at the osteotomy site is slightly increased. Th ere is some calcium deposition at the proximal margin of the osteotomy site. Thank you for letting us participate in the care of this patient. For questions regarding this report, please contact e number below. ? Narrative 08/29/2018 1:37 PM EDT EXAMINATION: XR TIBIA FIBULA RIGHT (GENERIC) CLINICAL HISTORY: Right tibial osteotomy , external fixation placement. ??06/16/18 (Gitajn) TECHNIQUE: 2 views RIGHT tibia and fibula. Segmente d AP and lateral views of the right tibia and fibula. COMPARISON: Radiographs of the right tibia and fibul a, most recently 08/20/2018 and dating back to 05/16/2018. Right knee radiographs 05/02/2018. FINDINGS: Postoperative changes status post right proximal tibial osteotomy. The osteotomy gap measures approximately 3.4 cm, when measured on the lateral view. There is a small amount of calcium deposition in th e osteotomy site, particularly along the proximal margin. Multiple metallic foci in around the proximal tibia are unchanged. The external fixator device h as a similar radiographic appearance when compared to the prior study. There is underlying posttraumatic deformity of the mid tibial shaft. Procedure Note Lupe Pereyra MD - 08/29/2018Formattin g of this note might be different from the original. EXAMINATION: XR TIBIA FIBULA RIGHT (GENE ZOHAIB) CLINICAL HISTORY: Right tibial osteotomy , external fixation placement. 06/16/18 (Gitajn) TECHNIQUE: 2 views RIGHT tibia and fibula. Segmente d AP and lateral views of the right tibia and fibula. COMPARISON: Radiographs of the right tibia and fibul a, most recently 08/20/2018 and dating back to 05/16/2018. Right knee radiographs 05/02/2018. FINDINGS: Postoperative changes status post right proximal tibial osteotomy. The osteotomy gap measures approximately 3.4 cm, when measured on the lateral view. There is a small amount of calcium deposition in th e osteotomy site, particularly along the proximal margin. Multiple metallic foci in around the proximal tibia are unchanged. The external fixator device h as a similar radiographic appearance when compared to the prior study. There is underlying posttraumatic deformity of the mid tibial shaft. IMPRESSION Posttraumatic deformity of the tibial sh aft status post proximal tibial osteotomy and placement of an external f ixator. The degree of distraction at the osteotomy site is slightly increased. Th ere is some calcium deposition at the proximal margin of the osteotomy site. Thank you for letting us participate in the care of this patient. For questions regarding this report, please contact e number below. Ankush Mckeon MD IMG DX ORDERABLES documented in this encounter Visit Diagnoses Diagnosis Tibia/fibula fracture, right, open type III, with malunion, subsequent encounter Tibia/fibula fracture, right, open type III, with malunion, subsequent encounter documented in this encounter Care Teams Black Top Roller Relationship Specialty Start Date End Date Cresencio Angel DO PCP - General Internal Medicine 04/24/[address] [place] [id number] documented as of this encounter
--- OUTSIDE RECORDS SUMMARY | 2021-11-16 10:47 | XMS_ITS | Encounter Summary ---
:1970 Author Organization [facility] Address [facility] [place] [address] Care Team Providers Name Role Phone Cresencio Angel DO Primary Care Provider Encounter Details Date Type Department Care Team Description 08/29/2018 Hospital Encounter XRay at [facility] [place] Ankush Mckeon, Tibia/fibula [address] [facility] [address] STRINGER fracture, right, [facility] open type III, [place] [id number] [address] arango, ORTHOPAEDIC subsequent SURGERY encounter [place], [place] [address] Social History Tobacco Use Types [...] 0 (HYDRODIURIL) 25 mg Tablet mouth daily. cyclobenzaprine (FLEXERIL) 5 Take 1-2 tablets 30 tablet 0 0 08/21/2018 09/19/2018 mg Tablet by mouth 2 times daily as needed for Muscle spasms. HYDROmorphone (DILAUDID) 2 mg Take 1-2 tablets 14 tablet 0 08/12/2018 09/19/2018 Tablet by mouth nightly as needed for Pain. HYDROcodone-acetaminophen Take 1 tablet by 0 01/01/2019 (NORCO) 5-325 mg Tablet mouth every 6 hours as needed for Pain. documented as of this encounter Plan of Treatment Not on filedocumented as of this encounter Procedures Procedure Name Priority Date/Time Associated Diagnosis Comme nts XR TIBIA FIBULA Routine 08/29/2018 12:10 PM Tibia/fibula Resul ts for this RIGHT EDT [...] encounter documented in this encounter Care Teams Geographic Information System Surveyor Relationship Specialty Start Date End Date Cresencio Angel DO PCP - General Internal Medicine 04/24/[address] [place] [id number] documented as of this encounter
--- OUTSIDE RECORDS SUMMARY | 2021-11-16 10:47 | XMS_ITS | Encounter Summary ---
:1970 Author Organization [facility] [place] [address] Care Team Providers Name Role Phone Stanley Cresencio Jose Eduardo MORA Primary Care Provider Encounter Details Date Type Department Care Team Description 08/22/2018 [place] [facility] [place]cetta Hull [place] [facility] [place] [address] ORTHOPAEDIC SURGERY [phone] [place], [place] [address] (Wo rk) Social History Tobacco [...] encounter Miscellaneous Notes Telephone Encounter - Vannesa Stanley, A - 08/22/2018 2:35 PM EDT Images from the original note were not included. We received a call From a friend Shannan Braswell of [employer]. She reports that he is in pain and has a concern that he may have a pin that is infected. It is reported that there is redness around pin site, some drainage . He is afebrile. They are going to send in a picture but are on there way to [place] and wonder if they should stop in to have the pin site checked. Sravan is sending in a picture. Reviewing Aminata Hull PA-C - Reviewed with Aminata Hull PA-C she felt that the pin site looked fine. She stated that it is normal to have some drainage. He was instructed by Aminata to continue to clean pins with saline and a qtip. He knows that if there are any changes he should call the clinic and if it is over the weekend he knows that he can call and talk to our resident medical concierge. Sravan agreed to this plan. documented in this encounter Plan of Treatment Not on filedocumented as of this encounter Visit Diagnoses Not on filedocumented in this encounter Care Teams Machine Binder Stripper Relationship Specialty Start Date End Date Cresencio Angel DO PCP - General Internal Medicine 04/24/[address] [place] [phone] documented as of this encounter
--- OUTSIDE RECORDS SUMMARY | 2021-11-16 10:47 | XMS_ITS | Encounter Summary ---
:1970 Author Organization [facility] Address [address] [place] [address] Care Team Providers Name Role Phone Cresencio Angel DO Primary Care Provider Reason for Referral Physical Therapy (Routine) - Specialty Diagnoses / Procedures Referred By Contact Refer red To Contact Diagnoses Tibia/fibula fracture, right, open type III, with malunion, subsequent encounter Cortney Egan MD [facility] [place] [address] Referral ID Status Reason Start Date Expiration Date Visits V isits Requested Authorized [id number] Evaluate and 08/29/2018 02/25/2019 12 12 Treat Non PCP Reason for Visit Reason Comments Follow-up R osteotomy tibia and fibula Encounter Details Date Type Department Care Team Description 08/29/2018 Office Visit Orthopaedics at [facility] [place] Cortney Egan, Tibia/fibula [facility] fracture, right, open Drive [facility] type III, [place] [address] arango, subsequent [phone] ORTHOPAEDIC encounter SURGERY [place] [id number] Social History Tobacco Use Types Packs/Day Years [...] Sign Reading Time Taken Comments Blood Pressure 115/82 08/29/2018 1:06 PM EDT Pulse 116 08/29/2018 1:06 PM EDT Temperature - - Respiratory Rate - - Oxygen Saturation - - Inhaled Oxygen Concentration - - Weight - - Height - - Body Mass Index - - documented in this encounter Progress Notes Cortney Egan MD - 08/29/2018 1:00 PM EDT Sravan Ching returns in follow-up s/p tibial osteotomy, deformity correction and limb lengthening with a circular frame. He is having issues with pain and knee stiffness. [facility] FollowUp 08/20/2018 Health in general Very Good Quality of life Very Good Physical health Very Good Mental health Very Good Satisfaction with social activities Very Good Ability to carry out physical activities A little Rate of pain 5 Rate of fatigue Moderate Ability to carry out social activities Good Bothered by emotional problems Often PROMIS PHYSICAL HEALTH SCORE 39.8 PROMIS MENTAL HEALTH SCORE 48.3 Gone to ER since knee surgery No Admitted to hospital since knee surgery No Additional surgery on same knee No Employment status before injury On leave of absence Returned to previous employment No Spending time in inpatient rehab facility No Rate overall condition today 5 Physical Exam- In general a well developed well nourished male in no apparent distress. Examination of the leg reveals the incision is clean dry and intact. EHL/FHL/TA/GC are intact. He has pain with knee and ankle ROM. Capillary refill is < 3 seconds. Sensation is intact. Radiographs- xray shows the hardware is intact. Alignment is substantially improved. Tibia appears long compared to his contralateral tibia. Assessment and Plan- Sravan Ching is a 47 y.o. male who returns in follow-up s/p deformity correction and limb lengthening. His tibia is a bit long compared to contralateral and he still has a rotational deformity. Will re-do a prescription to shorten and correct the rotational alignment. He will follow-up in 1 week for xrays and a strut change. Reny Egan MD Department of Orthopaedic Surgery 08/29/18 documented in this encounter Plan of Treatment Scheduled Referrals Name Type Priority Associated Diagnoses Order S chedule Referral to Outpatient Referral Routine Tibia/fibula Ordered: Physical Therapy fracture, right, 019 open type III, with malunion, subsequent encounter documented as of this encounter Results XR Tibia Fibula Bilat (Generic) (09/05/2018 9:37 AM EDT) Anatomical Region Laterality Modality Leg Bilateral Digital Radiography Specimen (Source) Anatomical Location Collection Method / Collectio n Time Received Time / Laterality Volume Impressions 09/05/2018 11:27 AM EDT Status post right tibial and right fibular osteotomies as described above, with the tibial lengths as described above. Thank you for letting us participate in the care of this patient. For questions regarding this report, please contact e number below. ? Narrative 09/05/2018 11:27 AM EDT EXAMINATION: XR TIBIA FIBULA BILAT (GENERIC) CLINICAL HISTORY: Status post tibial ost eotomy, deformity correction, and limb-lengthening procedure with a circul ar frame. TECHNIQUE: Frontal and lateral radiographs of the b ilateral tibiae and fibulae were obtained COMPARISON: Lower extremity radiographs ranging from 12/03/2006 through 08/29/2018 FINDINGS: There were prior osteotomies of the prox imal shafts of the right tibia and right fibula. A circular frame projects over a nd partly obscures the underlying right tibia. The right tibial osteotomy fragme nts are by approximately 3.4 cm, and the distal tibial osteotomy frag ment demonstrates minimal anterior displacement. The right fibular osteotom y fragments are by approximately 1.4 cm, and the distal fib ular osteotomy fragment is posteromedially displaced by approximate ly one-half of a shaft-width. 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 Metallic shrapnel again projects over th e soft tissues adjacent to the proximal to mid aspects of the right tibia and ri ght fibula. There is a well-corticated round ossific density measuring 0.5 cm projecting immediately distal to the left lateral m alleolus, compatible with a sequela of remote prior trauma. Otherwise, no abnor mality is identified at the left tibia or left fibula. When measured from the medial tibial spi ne to the tibial plafond, the right tibia is measured at 42.2 cm in length a nd the left tibia is measured at 39.6 cm in length. Procedure Note Isabel Barron MD - 09/05/2018Formatting o f this note might be different from the original. EXAMINATION: XR TIBIA FIBULA BILAT (GENE ZOHAIB) CLINICAL HISTORY: Status post tibial ost eotomy, deformity correction, and limb-lengthening procedure with a circul ar frame. TECHNIQUE: Frontal and lateral radiographs of the b ilateral tibiae and fibulae were obtained COMPARISON: Lower extremity radiographs ranging from 12/03/2006 through 08/29/2018 FINDINGS: There were prior osteotomies of the prox imal shafts of the right tibia and right fibula. A circular frame projects over a nd partly obscures the underlying right tibia. The right tibial osteotomy fragme nts are by approximately 3.4 cm, and the distal tibial osteotomy frag ment demonstrates minimal anterior displacement. The right fibular osteotom y fragments are by approximately 1.4 cm, and the distal fib ular osteotomy fragment is posteromedially displaced by approximate ly one-half of a shaft-width. 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 Metallic shrapnel again projects over th e soft tissues adjacent to the proximal to mid aspects of the right tibia and ri ght fibula. There is a well-corticated round ossific density measuring 0.5 cm projecting immediately distal to the left lateral m alleolus, compatible with a sequela of remote prior trauma. Otherwise, no abnor mality is identified at the left tibia or left fibula. When measured from the medial tibial spi ne to the tibial plafond, the right tibia is measured at 42.2 cm in length a nd the left tibia is measured at 39.6 cm in length. IMPRESSION Status post right tibial and right fibul ar osteotomies as described above, with the tibial lengths as described above. Thank you for letting us participate in the care of this patient. For questions regarding this report, please contact e number below. Electronically signed by: MARIAJOSE [facility] ([phone]), at 09/05/2018 11:27 AM Cortney Egan MD IMG DX ORDERABLES XR Tibia Fibula Right (Generic) (08/29/2018 1:45 PM EDT) Anatomical Region Laterality Modality Right Digital Radiography Specimen (Source) Anatomical Location Collection Method / Collectio n Time Received Time / Laterality Volume Impressions 08/29/2018 2:23 PM EDT Allowing for differences in patient position/radiographic projection, question slight shift in relative position/alignm ent of the post osteotomy proximal and distal portions of the fibula and tibia shafts. Thank you for letting us participate in the care of this patient. For questions regarding this report, please contact e number below. ? Electronically signed by: Pamela Mcdaniel [facility] ([phone]), at 08/29/2018 2:23 PM Narrative 08/29/2018 2:23 PM EDT EXAMINATION: XR TIBIA FIBULA RIGHT (GENERIC) CLINICAL HISTORY: please obtain AP and l ateral to include knee and ankle TECHNIQUE: 2 views RIGHT tibia and fibula COMPARISON: 08/20/2018. FINDINGS: External fixator equipment not appreciab ly changed in position allowing for differences in radiographic projection / patient positioning. No hardware complication is identified. Also allowin g for differences in patient position/radiographic projection, questi on slightly greater lateral position of the proximal shaft of the fibula relativ e to the distal shaft at the level of the osteotomy site. On the lateral proje ction, question slight displacement of the proximal tibia shaft relative to the more distal portion of the shaft at the level of the osteotomy, allowing for dif ferences in patient positioning/radiographic projection. No appreciable change in alignment by the knee or ankle joints. Procedure Note Pamela Mcdaniel MD - 08/29/2018Formatt ing of this note might be different from the original. EXAMINATION: XR TIBIA FIBULA RIGHT (GENE ZOHAIB) CLINICAL HISTORY: please obtain AP and l ateral to include knee and ankle TECHNIQUE: 2 views RIGHT tibia and fibula COMPARISON: 08/20/2018. FINDINGS: External fixator equipment not appreciab ly changed in position allowing for differences in radiographic projection / patient positioning. No hardware complication is identified. Also allowin g for differences in patient position/radiographic projection, questi on slightly greater lateral position of the proximal shaft of the fibula relativ e to the distal shaft at the level of the osteotomy site. On the lateral proje ction, question slight displacement of the proximal tibia shaft relative to the more distal portion of the shaft at the level of the osteotomy, allowing for dif ferences in patient positioning/radiographic projection. No appreciable change in alignment by the knee or ankle joints. IMPRESSION Allowing for differences in patient posi tion/radiographic projection, question slight shift in relative position/alignm ent of the post osteotomy proximal and distal portions of the fibula and tibia shafts. Thank you for letting us participate in the care of this patient. For questions regarding this report, please contact e number below. Electronically signed by: Pamela Mcdaniel, [facility] ([phone]), at 08/29/2018 2:23 PM Cortney Egan MD IMG DX ORDERABLES XR Knee Standing Alignment (Generic) (08/29/2018 1:45 PM EDT) Anatomical Region Laterality Modality N/A Digital Radiography Specimen (Source) Anatomical Location Collection Method / Collectio n Time Received Time / Laterality Volume Impressions 08/29/2018 2:12 PM EDT Lower extremity mechanical axes and leg length, as above. Thank you for letting us participate in the care of this patient. For questions regarding this report, please contact e number below. ? Electronically signed by: Pamela Mcdaniel [facility] ([phone]), at 08/29/2018 2:12 PM Narrative 08/29/2018 2:12 PM EDT EXAMINATION: XR KNEE STANDING ALIGNMENT (GENERIC) CLINICAL HISTORY: tibial osteotomy TECHNIQUE: Separate images of the pelvis , knees and feet were acquired in the AP projection with the patient standing. li images were stitched together to form a composite image of the pelvis and legs allowing for evaluation of lower extremity alignment in the weight bearin g position. COMPARISON: 05/02/2018. FINDINGS: Status post interval right tibial osteot gayatri, with overlying external fixation hardware. Left lower extremity mechanical axis is near neutral, extending through the medial tibial spine. The right lower ext remity mechanical axis also extends through medial tibial spine. Left lower extremity length approximatel y 90.6 cm. Right lower extremity length approximately 88.3 cm. Procedure Note Pamela Mcdaniel MD - 08/29/2018Formatt ing of this note might be different from the original. EXAMINATION: XR KNEE STANDING ALIGNMENT (GENERIC) CLINICAL HISTORY: tibial osteotomy TECHNIQUE: Separate images of the pelvis , knees and feet were acquired in the AP projection with the patient standing. li images were stitched together to form a composite image of the pelvis and legs allowing for evaluation of lower extremity alignment in the weight bearin g position. COMPARISON: 05/02/2018. FINDINGS: Status post interval right tibial osteot gayatri, with overlying external fixation hardware. Left lower extremity mechanical axis is near neutral, extending through the medial tibial spine. The right lower ext remity mechanical axis also extends through medial tibial spine. Left lower extremity length approximatel y 90.6 cm. Right lower extremity length approximately 88.3 cm. IMPRESSION Lower extremity mechanical axes and leg length, as above. Thank you for letting us participate [...] encounter documented in this encounter Care Teams Sewing Demonstrator Relationship Specialty Start Date End Date Cresencio Angel DO PCP - General Internal Medicine 04/24/[address] [place] [id number] documented as of this encounter
--- OUTSIDE RECORDS SUMMARY | 2021-11-16 10:47 | XMS_ITS | Encounter Summary ---
:1970 Author Organization [facility] Address [address] [place] [address] Care Team Providers Name Role Phone Cresencio Angel DO Primary Care Provider Reason for Visit Reason Comments Follow Up Surgery right osteotomy tibia & fibu la 06/16/18 Encounter Details Date Type Department Care Team Description 09/19/2018 Office Visit Orthopaedics at [facility] Cortney Egan, S/P Right tib/fib [facility] osteotomy, ringed [address] [facility] [place] [address] blakely, 06/16/18 ( [phone] [facility] SURGERY [place], [place] [address] Social History Tobacco Use Types [...] Sign Reading Time Taken Comments Blood Pressure 98/78 09/19/2018 10:51 AM EDT Pulse 104 09/19/2018 10:51 AM EDT Temperature - - Respiratory Rate - - Oxygen Saturation - - Inhaled Oxygen Concentration - - Weight - - Height - - Body Mass Index - - documented in this encounter Progress Notes Cortney Egan MD - 09/19/2018 11:00 AM EDT Sravan Ching returns in follow-up after deformity correction/osteotomy for posttraumatic deformity. He has completed his program and is now in the consolidation phase, doing well. [facility] FollowUp 09/19/2018 Health in general Very Good Quality of life Very Good Physical health Very Good Mental health Good Satisfaction with social activities Good Ability to carry out physical activities A little Rate of pain 3 Rate of fatigue Moderate Ability to carry out social activities Fair Bothered by emotional problems Sometimes PROMIS PHYSICAL HEALTH SCORE 42.3 PROMIS MENTAL HEALTH SCORE 45.8 Gone to ER since knee surgery No [...] Examination of the leg reveals the incisions and pin sites are clean dry and intact. EHL/FHL are intact. Capillary refill is < 3 seconds. Sensation is intact. Radiographs- xray shows the hardware is intact. Alignment is maintained. Assessment and Plan- Sravan Ching is a 47 y.o. male who returns in follow-up s/p deformity correction. He reports he is doing well. Reny Egan MD Department of Orthopaedic Surgery 10/10/18 documented in this encounter Plan of Treatment Not on filedocumented as of this encounter Visit Diagnoses Diagnosis S/P Right tib/fib osteotomy, ringed exte rnal fixator placement, 06/16/18 (Dr Egan) documented in this encounter Care Teams Tmr Teacher Relationship Specialty Start Date End Date Cresencio Angel DO PCP - General Internal Medicine 04/24/[address] [place] [id number] documented as of this encounter
--- OUTSIDE RECORDS SUMMARY | 2021-11-16 10:47 | XMS_ITS | Encounter Summary ---
:1970 Author Organization [facility] Address [place] [address] Care Team Providers Name Role Phone Cresencio Angel DO Primary Care Provider Encounter Details Date Type Department Care Team Description 08/29/2018 Hospital Encounter XRay at [facility] Julisa, Cortney Tibia/fibula [address] [facility] [address] Reny MD fracture, right, [place], [place] [facility] open type III, with [phone] arango, subsequent [phone] ORTHOP[place] [address] Social History Tobacco Use Types Packs/Day Years [...] every 6 hours as needed for Anxiety. oxyCODONE (ROXICODONE) 5 mg Take 1 tablet by 40 tablet 0 09/19/2018 Tablet mouth every 4 hours as needed for Pain. gabapentin (NEURONTIN) 300 Take 1 capsule 90 capsule 3 08/2904/03/2019 mg Capsule by mouth 3 times daily. cyclobenzaprine (FLEXERIL) 5 Take 1-2 tablets 30 tablet 0 0 08/21/2018 09/19/2018 mg Tablet by mouth 2 times daily as needed for Muscle spasms. HYDROmorphone (DILAUDID) 2 Take 1-2 tablets 14 tablet 0 06/201809/19/2018 mg Tablet by mouth nightly as needed for Pain. HYDROcodone-acetaminophen Take 1 tablet by 0 01/01/2019 (NORCO) 5-325 mg Tablet mouth every 6 hours as needed for Pain. documented as of this encounter Plan of Treatment Not on filedocumented as of this encounter Procedures Procedure Name Priority Date/Time Associated Diagnosis Comme nts XR TIBIA FIBULA Routine 08/29/2018 1:45 PM Tibia/fibula Result s for this RIGHT EDT fracture, right, procedure a re in open type III, with the resu lts malunion, subsequent section . encounter XR KNEE STANDING Routine 08/29/2018 1:45 PM Tibia/fibula Resul ts for this ALIGNMENT EDT fracture, right, procedure a re in open type III, with the resu lts malunion, subsequent section . encounter documented in this encounter Results XR Tibia Fibula Right (Generic) (08/29/2018 1:45 [...] below. ? Electronically signed by: Pamela Mcdaniel [facility] ([phone]), at 08/29/2018 2:23 PM Narrative 08/29/2018 2:23 [...] e number below. Electronically signed by: Pamela Mcdaniel [facility] ([phone]), at 08/29/2018 2:23 PM Cortney Egan MD [...] below. ? Electronically signed by: Pamela Mcdaniel [facility] ([phone]), at 08/29/2018 2:12 PM Narrative 08/29/2018 2:12 PM EDT EXAMINATION: XR KNEE STANDING ALIGNMENT (GENERIC) CLINICAL HISTORY: tibial osteotomy TECHNIQUE: Separate images of the pelvis , knees and feet were acquired in the AP projection with the patient standing. Th li images were stitched together to form [...] the AP projection with the patient standing. Th li images were stitched together to form [...] e number below. Electronically signed by: Pamela Mcdaniel [facility] ([phone]), at 08/29/2018 2:12 PM Cortney Egan MD IMG DX ORDERABLES documented in this encounter Visit Diagnoses Diagnosis Tibia/fibula fracture, right, open type III, with malunion, subsequent encounter documented in this encounter Care Teams Estate Planning Attorney Relationship Specialty Start Date End Date Cresencio Angel DO PCP - General Internal Medicine 04/24/[address] [place] [phone] documented as of this encounter
--- OUTSIDE RECORDS SUMMARY | 2021-11-16 10:47 | XMS_ITS | Encounter Summary ---
:1970 [place] [address] Care Team Providers Name Role Phone Cresencio [...] Expiration Date Visits Requ ested Visits Authorized [id number] 1 1 Encounter Details Date Type Department Care Team Description 06/16/2018 Anesthesia Event Main Operating Room Simon Russell MD [facility] [place] [address] [facility] Teofilo Akhtar MD [facility] [place] [address] [place] [address] Anesthesia Record Procedure Summary Procedure Name Responsible Anesthesia Start Anesthesia Stop Time Anesthesiologist Time OSTEOTOMY, TIBIA & Simon Ruiz MD 06/16/18 0733 06/16/18 1030 FIBULA (WRVU 17.48) (Right Leg Lower) Events Date Time Event Comment 06/16/2018 0655 0733 AN Verify 0733 Start 0733 An Start Data 0735 An Induction 0737 An Intubation 0740 Anesthesia Ready 0805 Procedure Start 0812 Break/Relief In Orellana, SOFTWARE COMPUTER SPECIALIST 0827 Break/Relief Out 1018 Procedure Stop 1018 Extubation/LMA Out 1018 an stop data 1030 Recovery or ICU Handoff Patient care was transferred to the destination unit staff after review of the patient's medica l history, current anesthetic/surgi dyana status and plan, according to the Provider Handoff Checklist. 1030 Stop Name Total Midazolam 2 mg fentaNYL 200 mcg IV Lidocaine 60 mg Propofol 200 mg Rocuronium 50 mg ePHEDrine 10 mg Ondansetron 4 mg Dexamethasone 4 mg Neostigmine 3 mg Glycopyrrolate 0.4 mg ceFAZolin 2 g Dexmedetomidine 18 mcg BUpivacaine 0.5% 30 mL Lactated Ringers 1,100 mL Agents Name O2 Air N2O Sevoflurane (et) Blood No blood administrations on file. Lines, Drains, and Airways Type Details Placement Removal Drain/Device Site 06/16/18; 0940; Right; 06/16/18 0940 by lower; leg; collapsible Geovanna, closed device; Dr. Laurita Loyd, RN Gitajn; 1/8th inch round drain cut to 10 holes PIV 06/16/18; 0634; 06/16/18 0634 by 06/18/18 1420 b y metacarpal vein (top of [place], Mann Sanders RN [facility], [facility]), left; 22 gauge, 1 R, MANAGER in length; distraction, intradermal injection, tolerated well, appears comfortable; 06/18/18; 1420 ETT Mask Ventilation: Easy 06/16/18 0742 by 06/16/18 1018 by (1); ETT Type: Cuffed, Newton, Jon harvey, Jon Oral; ETT Size: 7.5 mm; S, SOFTWARE COMPUTER SPECIALIST S, SOFTWARE COMPUTER SPECIALIST Mac Blade: 3; Notes: Asleep, Pre-O2, Stylette; Attempts: 1; Laryngoscopy Grade: 1; ETT Placement Verified By: Auscultation, Capnometry, Visual; Secured at Teeth: 21 cm; Inserted by: Newton Urethral Catheter 06/16/18; 0745; Surgery 06/16/18 0745 by 06/16 1010 by longer than 2 hours; Rashad Austin Li sa D RN Physician order; Laurita Loyd RN indwelling double lumen catheter; latex, hydrophilic coated; 14; inserted at this facility; 1; 5; 10; 06/16/18; 1010 Incision 06/16/18; 0805; leg; ex 06/16/18 0805 by 2 1715 by fix application; 11/06/21 Jade Austin Dierdre L (LDA cleanup utility Laurita Loyd RN RA#[id number]); 1715 (LDA cleanup utility RA#[id number]) documented in this encounter Social History Tobacco [...] encounter OR Notes Anesthesia Postprocedure Evaluation - Simon Ruiz MD - 06/16/2018 11:01 AM EDT [facility] Department of Anesthesiology Post-procedure Note Patient: Sravan Ching Procedure Summary Date: 06/16/18 Room / Location: [facility] MAIN OR Anesthesia Start: 732 Anesthesia Stop: 1030 Procedures: OSTEOTOMY, TIBIA & FIBULA (WRVU 17.48) (Right Leg Lower) APPLICATION OF A UNIPLANE, UNILATERAL, EXT FIXATION SYS, LOWER EXTREMITY (WRVU 8.78) (Right Leg) Diagnosis: Acquired deformity of right lower leg (Tibia/fibula fracture, left, open type III, with malunion, subsequent encounter) Surgeon: Cortney Egan MD Responsible Provider: Simon Ruiz MD Anesthesia Type: general ASA Status: 2 All Anesthesia Providers: Anesthesiologist: Simon Ruiz MD SOFTWARE COMPUTER SPECIALIST: Jon Glez CRNA Vitals Value Taken Time BP 128/81 06/16/2018 10:45 AM Temp Pulse 82 06/16/2018 10:59 AM Resp 13 06/16/2018 10:59 AM SpO2 92 % 06/16/2018 10:59 AM Pain Level 6 06/16/2018 10:54 AM Vitals shown include unvalidated device data. Patient Location: PACU/[facility] Level of Consciousness: Awake and Alert Pain Management: Pain Being Addressed PONV: None Cardiovascular Status: At Baseline Respiratory Status: At Baseline Postoperative Fluid Status: Intravascular EUvolemia Possible Anesthetic Complications: NONE apparent at time of evaluation Final Primary Anesthesia Type: General (The anesthetic type performed was the same as planned.) Comments: Anesthesia Procedure Notes - Gurpreet Pedersen MD - 06/16/2018 8:47 AM EDTAssociated Order(s): Anesthesia Block Anesthesia Block Date/Time: 06/16/2018 7:12 AM Performed by: Gurpreet Pedersen MD Authorized by: Teofilo Akhtar MD Start Time: 06/16/2018 7:07 AM End Time: 06/16/2018 7:12 AM Patient Location: Block Room The patient was greeted; the risks and benefits of the procedure were reviewed. Indication: Post-op Pain Control Post-op pain management at the request of surgeon. Block Type: Femoral nerve block and sciatic sciatic/ popliteal nerve block Laterality: Right Position: Supine Prep: Mask, cap, sterile gloves, hand hygeine, patient draped and chlorhexidine Skin Anesthetic: Lidocaine 1% dose: 5 [id number] 21 10 cm Ultrasound Guided: Live and in-plane Ultrasound guidance was used to identify the targeted neuronal structure. Ultrasound was also used to identify needle position and to identify tissue (bone, muscle, and blood vessels) to prevent inadvertent intraneural or intravascular needle placement and injection. The spread of local anesthetic was confirmed with live ultrasound imaging. Single-Shot: Single-shot BUpivacaine 0.5%, 30 mL no complications Fellow:: Gurpreet Pedersen MD Attending Physician:: Teofilo Akhtar MD Performed under sterile technique with light sedation. Negative aspirations every 5 cc. Patient tolerated procedure without issue. Good imaging. 18 cc used for sciatic block and 12 cc used for femoral Anesthesia Preprocedure Evaluation - Simon Ruiz MD - 06/15/2018 2:35 PM EDT Pre-Anesthesia Evaluation for: Sravan Ching a 47 y.o. male. Procedure(s): OSTEOTOMY, TIBIA & FIBULA (WRVU 17.48) APPLICATION OF A UNIPLANE, UNILATERAL, EXT FIXATION SYS, LOWER EXTREMITY (WRVU 8.78) Patient Active Problem List Diagnosis ??? Tibia/fibula fracture, left, open type III, with malunion, subsequent encounter No past medical history on file. No past surgical history on file. Social History Tobacco Use ??? Smoking status: Former Smoker Types: Cigarettes Last attempt to quit: 02/07/2004 Years since quittin.3 ??? Smokeless tobacco: Former User Types: Chew Quit date: 02/07/2004 ??? Tobacco comment: 02/07/04 Substance Use Topics ??? Alcohol use: Yes Alcohol/week: 0.6 oz Types: 1 Shots of liquor per week Comment: very rarely Social History Substance and Sexual Activity Drug Use Yes ??? Frequency: 2.0 times per week ??? Types: Marijuana Comment: once in a while No Known Allergies Medications: MAR and/or home medications have been reviewed. Physical Exam: There were no vitals filed for this visit. There is no height or weight on file to calculate BMI. Airway Assessment: Mallampati: II TM distance: >3 FB Neck ROM: full Cardiovascular Assessment: Rhythm: regular Rate: normal (-) murmur cardiovascular exam normal Pulmonary Assessment: breath sounds clear to auscultation pulmonary exam normal Dental Assessment: - normal exam (+) lower dentures Comment: Partial lower Misc Assessment: Patient is wearing No contact(s). IV access: Peripheral line Anesthesia Plan: ASA 2 general, with a(n) intravenous induction 47 year old with history of HTN, asthma, former smoker, MJ use, and R leg length discrepancy here for R tib/fib osteotomy. Patient seen and examined; chart and labs reviewed NIKDA Assessment and Plan: ASA 2 GA with 1 PIV and standard ASA monitors. PNB for postop pain control. Risks, plans, and procedures discussed with patient who understands and consents; questions answered. Region - Other Informed Consent: Anesthetic plan and risks discussed with patient. Use of blood products discussed with patient who consented to blood products. Plan discussed with SOFTWARE COMPUTER SPECIALIST and attending. PAT Clinic Note documented in this encounter Miscellaneous Notes Addendum Note - Gurpreet Pedersen MD - 06/24/2018 3:45 PM EDT Addendum created 06/24/18 1545 by Gurpreet Pedersen MD Sign clinical note documented in this encounter Plan of Treatment Not on filedocumented as of this encounter Procedures Procedure Name Priority Date/Time Associated Diagnosis Comme nts ANESTHESIA BLOCK Routine 06/16/2018 8:47 AM EDT Procedure Note - Gurpreet Pedersen MD - 06/16/2018 8:47 AM EDTThis note is in progress. Formatting of this note migh t be different from the original. Anesthesia Block Date/Time: 06/16/2018 7:12 AM Performed by: Gurpreet Pedersen MD Authorized by: Kateryna Akhtar MD Start Time: 06/16/2018 7:07 AM End Time: 06/16/2018 7:12 AM Patient Location: Block Room The patient was greeted; the risks and benefits of the procedure were reviewed. Indication: Post-op Pain Con trol Post-op pain management at t he request of surgeon. Block Type: Femoral nerve bl ock and sciatic sciatic/ popliteal nerve bl ock Laterality: Right Position: Supine Prep: Mask, cap, sterile bee ves, hand hygeine, patient draped and chlorhexidine Skin Anesthetic: Lidocaine 1 % dose: 5 [id number] 21 10 cm Ultrasound Guided: Live and in-plane Ultrasound guidance was used to identify the targeted neuronal structure. Ultrasound was also used to identify needle position and to identify tissue (bone, muscle, and blood vessels) to prevent inadvertent intraneural or intravascular needle placement and injection. The spread of local anesthetic was confirmed with live ultrasound imaging. Single-Shot: Single-shot BUpivacaine 0.5%, 30 mL no complications Fellow:: Gurpreet Pedersen MD Attending Physician:: Baudilio peace, Teofilo Loyd MD Performed under sterile blu hnique with light sedation. Negative aspirations every 5 cc. Patient tolerated procedure without issue. Good imaging. 18 cc used for sciatic block and 12 cc used for femoral documented in this encounter Visit Diagnoses Not on filedocumented in this encounter Administered Medications Inactive Administered Medications - up to 3 most recent administrations Medication Order MAR Action Action Date Dose Rate Site BUpivacaine (PF) (MARCAINE) 0.5 % Given 06/16/2018 7:12 AM EDT 3 0 mLs (5 mg/mL) injection Starting on Sat06/16/18 at 0712, Until Sat06/16/18 at 0712, Anesthesia Intra-op, Routine ceFAZolin (ANCEF) 1g in dextrose 5% 50mL Given 06/16/2018 7:40 AM EDT 2 g PRN, Starting on Sat06/16/18 at 0740, Until Sat06/16/18 at 1030, Administer over 30 Minutes, Anesthesia Intra-op dexamethasone (DECADRON) injection Given 06/16/2018 7:35 AM EDT 4 mg PRN, Starting on Sat06/16/18 at 0735, Until Sat06/16/18 at 1030, Anesthesia Intra-op, Routine dexmedetomidine (PRECEDEX) injection Given 06/16/2018 9:01 AM EDT 8 mcg PRN, Starting on Sat06/16/18 at 0819, Until Sat06/16/18 at 1030, Anesthesia Intra-op, Routine Given 06/16/2018 8:19 AM EDT 10 mcg ePHEDrine 5 mg/mL multi-dose injection Given 06/16/2018 9:23 AM EDT 5 mg PRN, Starting on Sat06/16/18 at 0838, Until Sat06/16/18 at 1030, Anesthesia Intra-op, Routine Given 06/16/2018 8:38 AM EDT 5 mg fentaNYL 50 mcg/mL multi-dose injection Given 06/16/2018 10:23 AM EDT 50 mcg PRN, Starting on Sat06/16/18 at 0830, Until Sat06/16/18 at 1030, Anesthesia Intra-op, Routine Given 06/16/2018 9:54 AM EDT 25 mcg Given 06/16/2018 9:52 AM EDT 25 mcg glycopyrrolate (ROBINUL) multi-dose inje ction Given 06/16/2018 9:55 AM EDT 0.4 mg PRN, Starting on Sat06/16/18 at 0955, Until Sat06/16/18 at 1030, Anesthesia Intra-op, Routine lactated ringers infusion New Bag 06/16/2018 9:07 AM EDT CONTINUOUS PRN, Starting on Sat06/16/18 at 0733, Until Sat06/16/18 at 1030, Anesthesia Intra-op New Bag 06/16/2018 7:33 AM EDT lidocaine (PF) (XYLOCAINE) 100 mg/5 mL (2 %) Given 9 7:35 AM EDT 60 mg injection PRN, Starting on Sat06/16/18 at 0735, Until Sat06/16/18 at 1030, Anesthesia Intra-op, Routine midazolam (PF) (VERSED) multi-dose injec tion Given 06/16/2018 7:35 AM EDT 2 mg PRN, Starting on Sat06/16/18 at 0735, Until Sat06/16/18 at 1030, Anesthesia Intra-op, Routine neostigmine (BLOXIVERZ) injection Given 06/16/2018 9:55 AM EDT 3 mg PRN, Starting on Sat06/16/18 at 0955, Until Sat06/16/18 at 1030, Anesthesia Intra-op, Routine ondansetron (ZOFRAN) injection Given 06/16/2018 9:44 AM EDT 4 mg PRN, Starting on Sat06/16/18 at 0944, Until Sat06/16/18 at 1030, Anesthesia Intra-op, Routine propofol (DIPRIVAN) 10 mg/mL bolus injection Given 10/2018 7:35 AM EDT 200 mg (Anesthesia) PRN, Starting on Sat06/16/18 at 0735, Until Sat06/16/18 at 1030, Anesthesia Intra-op rocuronium (ZEMURON) multi-dose injectio n Given 06/16/2018 7:35 AM EDT 50 mg PRN, Starting on Sat06/16/18 at 0735, Until Sat06/16/18 at 1030, Anesthesia Intra-op, Routine documented in this encounter Care Teams Pipe Line Repairer Relationship Specialty Start Date End Date Cresencio Angel DO PCP - General Internal Medicine 04/24/[address] [place] [address] documented as of this encounter
--- OUTSIDE RECORDS SUMMARY | 2021-11-16 10:47 | XMS_ITS | Encounter Summary ---
:1970 Author Organization [facility] Address [facility] [place] [address] Care Team Providers Name Role Phone Stanley Cresencio Jose Eduardo MORA Primary Care Provider Encounter Details Date Type Department Care Team Description 06/25/2018 Orders Only Orthopaedics at [facility] Edil Pelletier MD S/P Right tib/fib [facility] ost eotomy, ringed [place] [address] ORTHOPAEDIC placement, 06/16/18 ( [phone] SURGERY Gitajn) [place], [place] [address] Social History Tobacco Use Types [...] contact th e number below. ? Narrative 06/30/2018 2:55 PM EDT EXAMINATION: XR [...] 1. Tibial and fibular osteotomy for darya amato. 2. The tibial osteotomy line is more radu rowed but remains visible. 3. Unchanged proximal fibular osteotomy. Thank you for letting us participate in the care of this patient. For questions regarding this report, please contact e number below. Edil Pelletier MD IMG DX ORDERABLES documented in this encounter Visit Diagnoses Diagnosis S/P Right tib/fib osteotomy, ringed exte rnal fixator placement, 06/16/18 (Dr Egan) S/P Right tib/fib osteotomy, ringed exte rnal fixator placement, 06/16/18 (Dr Egan) documented in this encounter Care Teams Biological Chemist Relationship Specialty Start Date End Date Cresencio Angel DO PCP - General Internal Medicine 04/24/[address] [place] [id number] documented as of this encounter
--- OUTSIDE RECORDS SUMMARY | 2021-11-16 10:47 | XMS_ITS | Encounter Summary ---
:1970 Author Organization [facility] [place] [address] Care Team Providers Name Role Phone Stanley Cresencio Jose Eduardo MORA Primary Care Provider Encounter Details Date Type Department Care Team Description 08/05/2018 Refill Orthopaedics at [facility] Concetta Hull PA [facility] [place] [address] ORTHOPAEDIC SURGERY [phone] [place], [place] [address] (Wo rk) Social History Tobacco [...] Telephone Encounter - Blayne Siegel RN - 08/05/2018 8:19 AM EDT Pain has increased and radiates all the way to his ankle. He has been unable to sleep well. No new injury, signs of infection that may be contributing to the pain he is experiencing. He did report thathe felt it was related to sciatic nerve, and that he wanted to talk with Concetta to know if she would be willing to prescribe a muscle relaxant. He was able to relax his glutes and experienced relief. To discuss with SANDER, Jhonny, and return call to patient with outcome. Right [place] Telephone Encounter - Kavita Collins - 08/05/2018 8:10 AM EDT Who is calling? Sravan; Sravan calling in requesting a phone call from Aminata Hull, patient states he is having increased pain/swelling. Patient said he has questions regarding the Right Ankle but would not state what the questions were. Best call back number: Best time to call back between 8:00 am & 5:00 pm: Anytime Can we leave a message? yes Where is your swelling? Right Ankle Are you having increased swelling? yes Where is your pain? Right Ankle Are you having increased pain? yes (If patient is having BOTH increased pain and swelling please aaron message as urgent) Is there redness?no Did you have an injury?yes Date of Injury: N/A Have you had surgery on this body part?yes Date of Surgery: 06/16/18 Who was your surgeon? Dr. Egan Is your incision draining? no Your message will be forwarded to the clinical care team for review. documented in this encounter Plan of Treatment Not on filedocumented as of this encounter Visit Diagnoses Not on filedocumented in this encounter Care Teams Digital Marketing Strategist Relationship Specialty Start Date End Date Cresencio Angel, PCP - General Internal Medicine 04/24/18 [address] [place] [address] documented as of this encounter
--- OUTSIDE RECORDS SUMMARY | 2021-11-16 10:47 | XMS_ITS | Encounter Summary ---
:1970 Author Organization [facility] Address [address] [place] [address] Care Team Providers Name Role Phone Cresencio Angel DO Primary Care Provider Reason for Visit Reason Comments Follow Up Surgery right tib and fib osteotomy DOS 06/16/18 Encounter Details Date Type Department Care Team Description 07/30/2018 Office Visit Orthopaedics at [facility] Concetta Hull Tibia/fibula [facility] MAO Davis fracture, right, open Drive [facility] type III, [place] [address] arango, codie [phone] ORTHOPAEDIC encounter SURGERY [place] [id number] Social History Tobacco Use Types Packs/Day Years [...] Sign Reading Time Taken Comments Blood Pressure 141/83 07/30/2018 2:05 PM EDT Pulse 101 07/30/2018 2:05 PM EDT Temperature - - Respiratory Rate - - Oxygen Saturation - - Inhaled Oxygen Concentration - - Weight 97.5 kg (215 lb) 07/30/2018 2:05 PM EDT verbal Height 170.2 cm (5' 7) 07/30/2018 2:05 PM EDT verbal Body Mass Index 33.67 07/30/2018 2:05 PM EDT documented in this encounter Progress Notes Concetta Hull PA - 07/30/2018 2:00 PM EDT PATIENT NAME: Sravan Ching AGE: 47 y.o. MR#: [id number] DATE OF VISIT: 07/30/2018 CHIEF COMPLAINT: 6 week FU post Right tibial osteotomy, external fixation placement. 06/16/18 (Julisa) HISTORY OF PRESENT ILLNESS: Mr. Ching is a 47 y.o. male who comes into clinic today regarding the right leg. The Sravan was last in to see myself on 07/18/18 . Since he was last in he has been experiencing increased knee pain particularly of the knee. He is taking half a hydrocodone at night. Hydromorphone during the day. He is also taking tylenol twice per day. He is attempting to get more active. Did experence some swelling on Saturday when he drove home from [place] .He has been adjusting theexternal fixator as prescribed. Denies fever, chills, drenching night sweats. Past medical history: Patient Active Problem List Diagnosis Date Noted ??? Tibial deformity, acquired, right 06/16/2018 ??? S/P Right tib/fib osteotomy, ringed external fixator placement, 06/16/18 (Dr Egan) 06/16/2018 ??? Tibia/fibula fracture, right, open type III, with malunion, subsequent encounter 05/02/2018 Medications: ??? HYDROcodone-acetaminophen (NORCO) 5-325 mg Tablet ??? acetaminophen (TYLENOL) 500 mg Tablet ??? HYDROmorphone (DILAUDID) 2 mg Tablet ??? budesonide-formoterol (SYMBICORT) 80-4.5 mcg/actuation [...] or chills Vital signs: Most Recent Vitals: 07/30/18 1405 BP: 141/83 Pulse: (!) 101 Physical exam: Mr. Ching is a 47 [...] plan:: 47 y.o. year-old male now roughly 6 week FU post Right tibial osteotomy, external fixation placement. 06/16/18 (Gitajn) doing well. Pt seen and plan discussed in conjunction with Lucas Mendez, Srinivas ocean import representative. We had a long discussion regarding the nature of Sravan Ching's chief complaint. We reviewed the imaging together which is described above. Clinically Sravan Ching seems to be handling things well.We discussed the prescription regarding adjusting the ex fix components. He can continue WBAT on this extremity. His next appointment, 08/20/18 will need to be a one hour appointment. This plan was discussed with the patient and they are in agreement. All of the patient's questions were answered. The patient understand to contact us if they have any other questions or concerns. FU: 08/20/18. Will need XR images of the [...] encounter documented in this encounter Care Teams Straw Boss Relationship Specialty Start Date End Date Cresencio Angel DO PCP - General Internal Medicine 04/24/[address] [place] [address] documented as of this encounter
--- OUTSIDE RECORDS SUMMARY | 2021-11-16 10:47 | XMS_ITS | Encounter Summary ---
:1970 Author Organization [facility] [place] [address] Care Team Providers Name Role Phone Cresencio Angel DO Primary Care Provider Reason for Visit Reason Onset Date Comments Medication Refill 08/21/2018 Encounter Details Date Type Department Care Team Description 08/21/2018 Refill Orthopaedics at [facility] [place] [address] Social History Tobacco Use Types Packs/Day Years [...] this encounter Miscellaneous Notes Telephone Encounter - Bridgette Dick RN - 08/21/2018 9:41 AM EDT ?? Office visit note 08/20/2018 ?? CHIEF COMPLAINT: 9 week FU post Right tibial osteotomy, external fixation placement. 06/16/18 (Julisa) He feels that the flexural is helping his sleep though he did discuss his sleep with his PCP who gave him a sleeping pill which has made big improvements on his sleep overall received a request for flexeril refill. Last refill 08/05/2018 Next office visit 08/29/18 documented in this encounter Plan of Treatment Not on filedocumented as of this encounter Visit Diagnoses Not on filedocumented in this encounter Care Teams Business Education Professor Relationship Specialty Start Date End Date Cresencio Angel DO PCP - General Internal Medicine 04/24/[address] [place] [address] documented as of this encounter
--- OUTSIDE RECORDS SUMMARY | 2021-11-16 10:47 | XMS_ITS | Encounter Summary ---
:1970 Author Organization [facility] [place] [address] Care Team Providers Name Role Phone Stanley Cresencio Jose Eduardo MORA Primary Care Provider Encounter Details Date Type Department Care Team Description 08/20/2018 [place] [facility] [place]ney Egan S/P Right tib/fib [address] [facility] [address] Reny MD [facility] [place] [facility] [place] [phone] blakely, 06/16/18 ORTHOPAEDIC (Dr Egan) [place] [address] Social History Tobacco Use Types [...] Refills Start Date End Date acetaminophen (TYLENOL) 500 Take 1,000 mg by [...] 0 (HYDRODIURIL) 25 mg Tablet mouth daily. HYDROmorphone (DILAUDID) 2 mg Take 1-2 tablets 14 tablet 0 08/12/2018 09/19/2018 Tablet by mouth nightly as needed for Pain. cyclobenzaprine (FLEXERIL) 5 Take 1-2 tablets 30 tablet 0 0 08/05/2018 08/21/2018 mg Tablet by mouth 2 times daily as needed for Muscle spasms. HYDROcodone-acetaminophen Take 1 tablet by 0 01/01/2019 (NORCO) 5-325 mg Tablet mouth every 6 hours as needed for Pain. documented as of this encounter Plan of Treatment Not on filedocumented as of this encounter Procedures Procedure Name Priority Date/Time Associated Diagnosis Comme nts XR TIBIA FIBULA Routine 08/20/2018 1:46 PM S/P Right tib/fib R esults for this RIGHT EDT osteotomy, ringed procedure are in external fixator the results placement, 06/16/18 section. (Dr Egan) documented in this encounter Results XR Tibia Fibula Right (Generic) (08/20/2018 1:46 PM EDT) Anatomical Region Laterality Modality Right Digital Radiography Specimen (Source) Anatomical Location Collection Method / Collectio n Time Received Time / Laterality Volume Impressions 08/20/2018 4:28 PM EDT Increased distraction at the patient's proximal tibia and fibula osteotomies. Thank you for letting us participate in the care of this patient. For questions regarding this report, please contact e number below. ? Narrative 08/20/2018 4:28 PM EDT EXAMINATION: XR TIBIA FIBULA RIGHT (GENERIC) CLINICAL HISTORY: right tib fib osteotom y TECHNIQUE: 2 views RIGHT tibia and fibula COMPARISON: 07/30/2017 FINDINGS: Cage fixation remains in place. Following advancement there is increased distraction at the proximal tibia and fibula osteotomies. No complication is i dentified. Procedure Note Wes Winkler MD - 08/20/2018Forma tting of this note might be different from the original. EXAMINATION: XR TIBIA FIBULA RIGHT (GENE ZOHAIB) CLINICAL HISTORY: right tib fib osteotom y TECHNIQUE: 2 views RIGHT tibia and fibula COMPARISON: 07/30/2017 FINDINGS: Cage fixation remains in place. Following advancement there is increased distraction at the proximal tibia and fibula osteotomies. No complication is i dentified. IMPRESSION Increased distraction at the patient's p roximal tibia and fibula osteotomies. Thank you for letting us participate in the care of this patient. For questions regarding this report, please contact e number below. Cortney Egan MD IMG DX ORDERABLES documented in this encounter Visit Diagnoses Diagnosis S/P Right tib/fib osteotomy, ringed exte rnal fixator placement, 06/16/18 (Dr Egan) documented in this encounter Care Teams Animal Behaviourist Relationship Specialty Start Date End Date Cresencio Angel DO PCP - General Internal Medicine 04/24/[address] [place] [id number] documented as of this encounter
--- OUTSIDE RECORDS SUMMARY | 2021-11-16 10:47 | XMS_ITS | Encounter Summary ---
:1970 Author Organization [facility] [place] [address] Care Team Providers Name Role Phone Stanley Cresencio Jose Eduardo MORA Primary Care Provider Encounter Details Date Type Department Care Team Description 07/30/2018 Hospital Encounter [place] [facility] [place] Cortney Egan S/P Right tib/fib [address] [facility] [address] [facility] [place] [place] [facility] [place] [phone] blakely, 06/16/18 ORTHOPAEDIC (Dr Egan) [place] [address] Social History Tobacco Use Types [...] 0 (HYDRODIURIL) 25 mg Tablet mouth daily. HYDROcodone-acetaminophen Take 1 tablet by 0 01/01/2019 (NORCO) 5-325 mg Tablet mouth every 6 hours as needed for Pain. HYDROmorphone (DILAUDID) 2 mg Take 1-2 tablets 30 tablet 0 06/18/2018 08/05/2018 Tablet by mouth every 4 hours as needed for Pain. documented as of this encounter Plan of Treatment Not on filedocumented as of this encounter Procedures Procedure Name Priority Date/Time Associated Diagnosis Comme nts XR TIBIA FIBULA Routine 07/30/2018 1:28 PM S/P Right tib/fib R esults for [...] please contact e number below. ? Narrative 07/30/2018 5:32 [...] report, please contact th e number below. Cortney Egan MD IMG DX ORDERABLES documented in this encounter Visit Diagnoses Diagnosis S/P Right tib/fib osteotomy, ringed exte rnal fixator placement, 06/16/18 (Dr Egan) documented in this encounter Care Teams Police [employer] Instructor Relationship Specialty Start Date End Date Cresencio Angel DO PCP - General Internal Medicine 04/24/[address] [place] [address] documented as of this encounter
--- OUTSIDE RECORDS SUMMARY | 2021-11-16 10:47 | XMS_ITS | Encounter Summary ---
:1970 Author Organization [facility] Address [place] [address] Care Team Providers Name Role Phone Cresencio Angel DO Primary Care Provider Encounter Details Date Type Department Care Team Description 09/05/2018 Hospital Encounter XRay at [facility] [place] Julisa, Cortney Tibia/fibula 1 [facility] Center [address] Reny MD fracture, right, [place], [place] [facility] open type III, with [phone] arango, subsequent [phone] [place]THOP[place]ED[place] [address] Social History Tobacco Use Types Packs/Day Years [...] Diagnosis Comme nts XR TIBIA FIBULA Routine 09/05/2018 9:37 AM Tibia/fibula Result s for this BILAT EDT fracture, right, procedure [...] below. ? Electronically signed by: MARIAJOSE [facility] ([phone]), at 09/05/2018 11:27 AM Narrative 09/05/2018 11:27 AM EDT EXAMINATION: XR [...] original. EXAMINATION: XR TIBIA FIBULA BILAT ([facility]) CLINICAL HISTORY: Status post tibial ost eotomy, [...] number below. Electronically signed by: MARIAJOSE [facility] ([phone]), at 09/05/2018 11:27 AM Cortney Egan MD IMG DX ORDERABLES documented in this encounter Visit Diagnoses Diagnosis Tibia/fibula fracture, right, open type III, with malunion, subsequent encounter documented in this encounter Care Teams Director Of Informatics Relationship Specialty Start Date End Date Cresencio Angel, DO PCP - General Internal Medicine 04/24/18 [address] [place] [address] documented as of this encounter
--- OUTSIDE RECORDS SUMMARY | 2021-11-16 10:47 | XMS_ITS | Encounter Summary ---
:1970 Author Organization [facility] [place] [address] Care Team Providers Name Role Phone Cresencio Jose Eduardo MORA Primary Care Provider Encounter Details Date Type Department Care Team Description 07/11/2018 Orders Only [place] [facility] [place] Cortney Egan, S/P Right tib/fib [facility] MD osteotomy, ringed [facility] external fixator [place] [phone] blakely, 06/16/18 ( [phone] ORTHOPAEDIC [place]) SURGERY [employer] [employer], [place] [address] Social History Tobacco Use Types [...] Egan) documented in this encounter Care Teams Marine Water Tender Relationship Specialty Start Date End Date Cresencio Angel DO PCP - General Internal Medicine 04/24/[address] [place] [id number] documented as of this encounter
--- OUTSIDE RECORDS SUMMARY | 2021-11-16 10:47 | XMS_ITS | Encounter Summary ---
:1970 Author Organization [facility] [place] [address] Care Team Providers Name Role Phone Stanley Cresencio Jose Eduardo MORA Primary Care Provider Encounter Details Date Type Department Care Team Description 08/08/2018 Telephone [place] [facility] Cortney Egan MD [facility] [place] [address] ORTHOPAEDIC SURGERY [phone] [place], [place] [address] (Wo rk) Social History Tobacco [...] Notes Telephone Encounter - Ludivina Norman - 08/11/2018 8:55 AM EDT I called Sravan today to discuss his recent question with Aminata Nascimento PA-C. Aminata stated he needs toavoid the pool at this time, because of the increased risk of infection. He also stated that he was having some new pain, and stated he thinks he pulled a muscle in his ankle. He denied a snap/pop, or intense pain. I told him to rest, ice, and to do so stretches. He stated that the Flexeril is not helping alleviate his muscle pain, but he has been taking hydromorphone 2 mg for pain relief as well. Hestates he only has 4 pills left, like a refill. I instructed him to call the prescription line to inquire that refill. No further questions or concerns at this time. Telephone Encounter - Ludivina Norman - 08/08/2018 11:29 AM EDT Sravan called today to see if he could try aquatic therapy. He currently has an external fixator, but stated he did pool therapy in the past with his last ex- fix. I told him I would ask Concetta Nascimento PA-C and give him a call back when I heard from her. This was routed to aminata nascimento, follow up by this afternoon. documented in this encounter Plan of Treatment Not on filedocumented as of this encounter Visit Diagnoses Not on filedocumented in this encounter Care Teams Application Integration Architect Relationship Specialty Start Date End Date Cresencio Angel DO PCP - General Internal Medicine 04/24/[address] [place] [id number] documented as of this encounter
--- OUTSIDE RECORDS SUMMARY | 2021-11-16 10:47 | XMS_ITS | Encounter Summary ---
:1970 Author Organization [place] [address] Care Team Providers Name Role Phone Stanley Cresencio Jose Eduardo MORA Primary Care Provider Reason for Visit Reason Comments Follow Up Surgery Right Osteotomy tibai and fi bula Encounter Details Date Type Department Care Team Description 06/30/2018 Office [place] [facility] Concetta Hull Acquired deformity of [facility] MAO [place] [address] CENTER [phone] ORTHOPAEDIC SURGERY [place], [place] [address] Social History Tobacco Use Types [...] Sign Reading Time Taken Comments Blood Pressure 111/78 06/30/2018 2:50 PM EDT Pulse 89 06/30/2018 2:50 PM EDT Temperature 36.6 ??C (97.9 ??F) 06/30/2018 2:50 PM EDT Respiratory Rate - - Oxygen Saturation - - Inhaled Oxygen Concentration - - Weight 97.5 kg (215 lb) 06/30/2018 2:50 PM EDT Height - - Body Mass Index 33.67 05/16/2018 12:54 PM EST documented in this encounter Progress Notes Concetta Hull PA - 06/30/2018 2:30 PM EDT PATIENT NAME: Sravan Ching AGE: 47 y.o. MR#: [id number] DATE OF VISIT: 06/30/2018 CHIEF COMPLAINT: 2 weeks Hospital check post 06/16/18 (Gitajn) Right Osteotomy, Tibia and Fibula, [...] today for evaluation of the right leg .Sravan Ching has been doing well since surgery. He has bearing weight on his leg and denies fever, chills, drenching night sweats. He has been using Hydromorphone for pain relief which he rates at a 4/10 at its' most severe. . Past medical history: Patient Active Problem List Diagnosis Date Noted ??? Tibial deformity, acquired, right 06/16/2018 ??? S/P Right tib/fib osteotomy, ringed external fixator placement, 06/16/18 (Dr Egan) 06/16/2018 ??? Tibia/fibula fracture, left, open type III, with malunion, subsequent encounter 05/02/2018 Medications: ??? acetaminophen 500 mg Capsule ??? HYDROmorphone (DILAUDID) 2 mg Tablet ??? senna-docusate (PERICOLACE) 8.6-50 mg [...] or chills Vital signs: Most Recent Vitals: 06/30/18 1450 BP: 111/78 Pulse: 89 Temp: 36.6 ??C (97.9 ??F) Physical exam: Mr. Ching is a 47 y.o. male who is alert and oriented. He is in no acute discomfort and is resting comfortably in the exam room. External fixator in place. Sponges removed for exam. Pin sites were clean. Some dried blood which was removed with saline and a swab. No yu-incisional erythema noted No bogginess or drainage to palpation about the incision Skin feels no warmer than surrounding tissue I am not able to part the skin with gentle palpation PT/DP pulses 2+. Superficial peroneal, deep peroneal, sural, saphenous, and tibial nerves intact to touch. . Imaging studies: Tib fib films were obtained today showing osteotomy site and external fixator. The distal tibia continues to be set posteriorly at bit. Assessment and plan:: 47 y.o. year-old male now roughly 2 weeks out post right tibial osteotomy doing well. Pt seen and plan discussed in conjunction with Lucas Mendez, Srinivas sales development representative as well as discussed with Dr. Egan. We had a long discussion regarding the nature of Sravan Ching's chief complaint. We reviewed the imaging together which is described above. Clinically Sravan Ching seems to be handling things well.We discussed the prescription regarding adjusting the ex fix components. Lucas demonstrated how to adjust the components and Sravan demonstrated not only his ability to read the prescription, but adjust the components. Sutures were removed today in clinic. The pt handled this well. Steri strips need to remain in place for at least one week. Showers are ok, however please do not submerge the incision until the scabs have been replaced by scars. This plan was discussed with the patient and they are in agreement. All of the patient's questions were answered. The patient understand to contact us if they have any other questions or concerns. FU: July 10 for 8:15 XR of the tibia and 9:00 appointment with me in 3C. Concetta Hull PA-C The above dictation was made with voice recogonition software documented in this encounter Plan of Treatment Not on filedocumented as of this encounter Visit Diagnoses Diagnosis Acquired deformity of right lower leg Other acquired deformity of other parts of limb documented in this encounter Care Teams Foundation Coordinator Relationship Specialty Start Date End Date Cresencio Angel DO PCP - General Internal Medicine 04/24/[address] [place] [id number] documented as of this encounter
--- OUTSIDE RECORDS SUMMARY | 2021-11-16 10:47 | XMS_ITS | Encounter Summary ---
:1970 Author Organization [facility] Address [place] [id number] Care Team Providers Name Role Phone Cresencio [...] Expiration Date Visits Requ ested Visits Authorized [id number] 1 1 Encounter Details Date Type Department Care Team Description 06/16/2018 Surgery Main Operating Room Cortney Egan MD [facility] 17.48[facility] ORTHOPAEDIC [address] [id number] [phone] Social History Tobacco Use Types Packs/Day Years [...] Sign Reading Time Taken Comments Blood Pressure 93/75 06/16/2018 11:30 AM EDT Pulse 75 06/16/2018 11:30 AM EDT Temperature 36.5 ??C (97.7 ??F) 06/16/2018 10:27 AM EDT Respiratory Rate 13 06/16/2018 11:30 AM EDT Oxygen Saturation 92% 06/16/2018 11:30 AM EDT Inhaled Oxygen Concentration - - Weight 97.5 kg (215 lb) 06/16/2018 6:02 AM EDT Height - - Body Mass Index 33.67 05/16/2018 12:54 PM EST documented in this encounter Discharge Summaries Yulissa Alejandro, MOLD INSERT CHANGER - 06/18/2018 2:02 PM EDT Discharge Summary Patient Name: Sravan Ching Patient Age: 47 y.o. Language: Azerbaijani Race: Declines to List Ethnicity: Not nor Admit date: 06/16/2018 Discharge date and time: 06/18/2018 Attending Physician: Cortney Egan MD Discharge Physician: Cortney Egan MD Follow-up Recommendations for Providers: See discharge instructions for additional details. Future Appointments Date Time Provider Department Center 06/30/2018 2:30 PM Concetta Hull PA [facility] Inpatient Provider Contact Information: Cortney Egan MD Orthopedics: [phone] After hours and weekends, call [facility] Director Security Risk Management, , and have the Orthopedic resident paged. [...] Weight: Wt Readings from Last 1 Encounters: 06/16/18 97.5 kg (215 lb) Height: Ht Readings from Last 1 Encounters: 05/16/18 170.2 cm (5' 7) HC: HC Readings [...] to: Home with outpatient PT and [facility] in [place], [place] and [phone] Updated Allergies/ADRs: No Known Allergies Immunizations Given [...] bowel movement. You can also take an feip-imm-pteteqy medication, Miralax if needed to combat constipation. [...] redness, pain or drainage. Call your doctor ([phone]) if you develop: 1. Fever greater than 100.5 2. Severe nausea or vomiting 3. Increasing pain that is not controlled by pain medications 4. Increasing redness, swelling, or drainage from incisions 5. Change in sensation FOLLOW-UP APPOINTMENTS: Future Appointments Date Time Provider Department Center 06/30/2018 2:30 PM Concetta Hull PA [facility] CLIN If you have questions or [...] 2:30 PM Concetta Hull PA Orthopaedics at [place] Arrive at: Drug Purchaser Area 3D [phone] Future Orders Complete By Expires Referral to Home Health - at DISCHARGE [[id number] CPT(R)] As directed Process Instructions: Scheduling Instructions: Comments: DOCUMENTATION FOR VNA SERVICES (INCLUDING THOSE PATIENTS WITH MEDICARE COVERAGE REQUIRING HOME VNA SERVICES AND/OR HOSPICE SERVICES) PATIENT'S LOCATION: Sravan Ching [address] [facility] [address] (home) Cell: Telephone Information: Flame Channeler's Name: self In discussion with the attending physician, it is certified that this patient is under their care and that they, or a Nurse Practitioner,Clinical Nurse specialist or Physician Purchasing/Receiving who is working directly with them, had [...] issues HOME HEALTH CARE AGENCY: Please call [facility] prior to sending a referral to this agency to confirm that they have the ability to meet the needs of the patient. [facility] in [place], [place] and [phone] Startof care: 24-48 hours from discharge Please note that any additional orders needs or changes will need to be obtained from this patient'sPCP: Cresencio Angel, [address] [place] [id number] All VNA agencies which cover the area of patient's residence have been reviewed, either verbally or in writing, and patient/family have chosen the home health care agency noted Questions: Agency name and contact information: [facility] Patient location post discharge: home What [...] Focus: Primary Care Provider: Cresencio Angel DO [phone] Discharge References/Attachments None documented in this encounter Discharge Instructions Patient InstructionsDaYulissa bean, MOLD INSERT CHANGER - 06/16/2018 11:02 AM EDT Activity level: [...] bowel movement. You can also take an uocd-qmy-juaucwm medication, Miralax if needed to combat constipation. [...] redness, pain or drainage. Call your doctor ([phone]) if you develop: 1. Fever greater than 100.5 2. Severe nausea or vomiting 3. Increasing pain that is not controlled by pain medications 4. Increasing redness, swelling, or drainage from incisions 5. Change in sensation FOLLOW-UP APPOINTMENTS: Future Appointments Date Time Provider Department Center 06/30/2018 2:30 PM Concetta Hull PA [facility] If you have questions or concerns: [...] Take 17 g by mouth 0 06/19/19 07/18/2018 (MIRALAX) 17 gram/dose 2 times daily [...] ??C (97.7 ??F)-37 ??C (98.6 ??F)] Resp: [16-] BP: (118-158)/(83-91) Intake/Output Summary (Last 24 hours) at 06/18/2018 06 Last data filed at 06/18/2018 0400 Gross [...] 2:30 PM Concetta Hull PA [facility] Associated attestation - Cortney Egan MD - 06/19/2018 12:43 PM EDT Patient seen and examined. Agree with resident note. Reny Egan MD Department of Orthopaedics 06/19/18 Sawyer Griffin MD - 06/17/2018 5:22 AM EDT ORTHOPAEDIC SURGERY INPATIENT PROGRESS NOTE Patient Name: Sravan Cihng Age: 47 y.o. Surgery/Issue: Right Tibia-Fibula Osteotomies, [...] 2:30 PM Concetta Hull PA [facility] Associated attestation - Cortney Egan MD - 06/17/2018 7:01 AM EDT Patient seen and examined. Agree with resident note. NWB RLE, keep drain in place until output <5cc/shift or prior to discharge. ROMAT R knee. PT/OOB. Dispo planning. Reny Egan MD Department of Orthopaedics 06/17/18 Kelsey Solorzano, RN - 06/16/2018 12:20 PM EDT Report to Rosa on 3w. Pt sleeping off and on. Stephanie [...] is relatively well controlled. SHx: Served in [employer] FOCUSED REVIEW OF SYSTEMS: as above. Active [...] 2:30 PM Concetta Hull PA [facility] Associated attestation - Cortney Egan MD [...] drop. Pt stretching R ankle with leg hot wort settler. Ambulated in the hallway with crutches, negotiated [...] with outpatient services LEILA GARCIA, PT Pager: [phone] Inpatient Physical Therapy 06/18/18 7244 Rehab Evaluation Document Type therapy note (daily [...] Vital Signs Heart Rate (!) 136 (notified HAND STEMMER) SpO2 96 % O2 Device RA Pain Scale/Rating Pain Assessment Scale Word (verbal rating pain scale) Pain Level (less tingling with splint on RLE) POSS (Pasero Opioid-Induced Sed Scale) 1 - Awake and alert ROM (Range of Motion) Additional Documentation (R ankle to neutral, R knee flexion 80 degrees) Transfer Assessment/Treatment Aline (Sit-Stand Transfers) supervision required Aline (Stand-Sit Transfers) supervision required Qcf-Ixhlv-Vnh Assistive Device (Transfers) axillary crutches Comment (Transfers) pt transferring with greater steadiness today Gait Assessment/Treatment Impairments (Gait) balance impaired (due to NWB RLE ) Assistive Device (Gait) axillary crutches Aline (Gait) supervision required Distance in Feet (Gait) [...] 2 - 3 days Gait Training Goal, Aline Level conditional independence Gait Training Goal, Assist [...] 3 days Transfer Training Goal, Activity Type kih-kl-cugxl/yfkxt-er-xau;dpc-dy-nsrzs/gphrn-hs-jdn;toilet Transfer Train Goal, Aline Level conditional independence Transfer Training Goal, Assist [...] Review Outcome: Ongoing (Interventions Implemented as Appropriate) 06/18/18 0244 Coping/Psychosocial Plan Of Care Reviewed With patient [...] Handling Outcome: Ongoing (Interventions Implemented as Appropriate) 06/17/18192906/18/18 0244 Daily Care Interventions Self-Care Promotion -- independence [...] Ongoing (Interventions Implemented as Appropriate) 06/18/18 0244 Skin Integrity Impairment, Risk/Actual (Adult) Skin Integrity/Wound Healing making progress toward outcome Initial Assessments - Marianna Ramirez RN - 06/17/2018 5:27 PM EDT Office of Care Management Initial Assessment Marianna Ramirez, RN reviewed record and discussed patient with [...] Specific Information: na Health/Prescription Coverage: Primary Insurance: [employer] Secondary Insurance: N/A Prescription Coverage: yes [facility] Preferred Pharmacy: [place] Other: na Primary Care Provider: Cresencio Angel DO [phone] Patient/Caregiver Goals of Treatment: discharge to home Potential Needs for Transition of Care: Rehab/SNF: NA Home Health: The patient/billing customer service representative has been provided a list of Home Health Agencies/DME vendors which serve their preferred geographic area. A letter describing our affiliations was reviewed with them and theywere educated about their right to choose where referrals are placed. [facility] to sending a referral to this agency to confirm that they have the ability to meet the needs of the patient. [facility] in [place], [place] and [phone] Expected date of discharge: 06/18 18. Referral routed to the Baseball Pitcher for matching with agency/vendor and to provide [...] assist with transition of care planning. Marianna Ramirez RN Pager: [phone] Plan of Care - Pema Gruber RN [...] pt performing R knee ROM. Using leg hot wort settler for stretches. Pt tolerated short ambulation, not ready to do stairs today, limited by pain and decreased endurance. Please see associatedflow sheet data below for objective information regarding today's session Staff Mobility Recommendations Axillary crutches, NWB RLE, RLE elevated, bedside commode in room dueto access to LEILA GUERRIER, PT Pager: [phone] Inpatient Physical Therapy 2017 PT Evaluation Code Rationale: ?? Diagnosis & Pertinent Co-Morbidities, personal factors, and present illness affecting Plan ofCare: Patient Active Problem List Diagnosis Code ??? Tibia/fibula fracture, left, open type III, with malunion, subsequent encounter S82.202R, S82.402R ??? Tibial deformity, acquired, right M21.961 ??? S/P Right tib/fib osteotomy, ringed external fixator placement, 06/16/18 (Dr Egan) Z98.303 Additional personal factors or co-morbidities that impact [...] Living Environment Comment Dad will drive to [employer], lives w/20 y.o daughter who is with twins. Functional Level Prior Ambulation 0-->independent Transferring 0-->independent Toileting 0-->independent Bathing 0-->independent Dressing 0-->independent Eating 0-->independent Communication 0-->understands/communicates without difficulty Swallowing 0-->swallows foods/liquids without difficulty Prior Functional Level Comment works PT Vital Signs Heart Rate 68 SpO2 97 % O2 Device RA Vision Assessment/Intervention Additional Documentation (corrective lenses sales and marketing director) Cognitive Assessment/Intervention Additional Documentation Cognitive Assessment Interventions [...] pain;ROM (range of motion) decreased (NWB RLE) Pqzzvl-ef-Tfv Aline (Bed Mobility) conditional independence Assistive Device (Bed Mobility) leg hot wort settler;bed rails Comment (Bed Mobility) Pt instructed to set bed in chair position prior to PT session Roll Right Aline (Bed Mobility) independent Safety Issues (Bed Mobility) decreased use of legs for bridging/pushing Transfer Assessment/Treatment Aline (Sit-Stand Transfers) contact guard assist;verbal cues required Aline (Stand-Sit Transfers) supervision required;verbal cues required Ldg-Kogwt-Uou Assistive Device (Transfers) axillary crutches Impairments (Transfers) pain;ROM (range of motion) decreased (NWB ) Comment (Transfers) pt stood several times, Cuing for proper placement of crutches, reaching back tothe chair Gait Assessment/Treatment Impairments (Gait) balance impaired;pain;ROM (range of motion) decreased;strength decreased (decreased wt bearing status, R foot drop) Assistive Device (Gait) axillary crutches Aline (Gait) verbal cues required;contact guard assist Distance [...] 2 - 3 days Gait Training Goal, Aline Level conditional independence Gait Training Goal, Assist Device crutches, axillary Gait Training Goal, Distance to Achieve 50 ft Gait Training Goal, Additional Goal negotiate 4 stairs with crutch and railing Transfer Training Goal Transfer Training Goal, Date Established 06/17/18 Transfer Training Goal, Time to Achieve 2 - 3 days Transfer Training Goal, Activity Type coe-sm-bcqgb/glmgl-vm-ffc;qea-ec-bhasl/jhpfk-ik-usw;toilet Transfer Train Goal, Aline Level conditional independence (NWB RLE) Transfer Training [...] Needs at Discharge (provided axillary crutches, leg hot wort settler, post op shoe ) Anticipated Discharge Disposition home with assist;home with outpatient services Plan of Care - Sawyer Meredith, OT - 06/17/2018 1:25 PM EDT Occupational Therapy Evaluation Pertinent History of Current Problem: Sravan Ching is a 47 y.o. male Day of Surgery 4/8 s/p Right tib/fib osteotomy, ringed external fixator [...] assist, home with outpatient services(PT only) Pager: [phone] Sawyer Meredith, OT 06/18/2018 Occupational Therapy Rehabilitation Department 2017 [...] Assessment/Treatment Assistive Device (Bed Mobility) bed rails;leg hot wort settler Kfzxds-bm-Bcw Aline (Bed Mobility) conditional independence Impairments (Bed Mobility) pain;ROM (range of motion) decreased;strength decreased Comment (Bed Mobility) Pt performed bed mobility, increased time. Minimal use of bed features. Transfer Assessment/Treatment Aline (Sit-Stand Transfers) supervision required;verbal cues required Aline (Stand-Sit Transfers) supervision required;verbal cues required Tkj-Nikka-Tdy Assistive Device (Transfers) axillary crutches Impairments (Transfers) pain;ROM (range of motion) decreased;balance impaired;strength decreased;motor control impaired Comment (Transfers) Pt performed sit<>stand multiple tmes, initial attempt w/ FWW and CGA w/ FWW secured. Pt prefers crutches due to ex-fix and experience Gait Assessment/Treatment Aline (Gait) supervision required Assistive Device (Gait) axillary [...] Body Dressing Assessment/Training Position (UB Dressing) sitting Aline Level (UB Dressing) independent Lower Body Dressing Assessment/Training Assistive Devices (LB Dressing) disaster director;dressing stick Position (LB Dressing) supine Aline Level (LB Dressing) conditional independence Impairments (LB [...] ADLs]: Eyes/hands on Surveillance [continuous indirect monitoring]: Cherie, purposeful rounding Patient-specific fall prevention interventions for sensory deficits provided, if applicable: [X] N/A CPG GOAL OUTCOME EVALUATION: Op Note - Cortney Egan MD - 06/16/2018 11:21 AM EDT [facility] Operative Note Patient Name: Sravan Ching : [id number] MR#: [id number] Case Date: 06/16/2018 Surgeon: Surgeon(s) and Role: [...] Operative Note Patient Name: Sravan Ching : [id number] MR#: [id number] Case Date: 06/16/2018 Surgeon: Surgeon(s) and Role: [...] Blood Products) Urine Output: 140 mL Drains: 1/8 bulb suction Disposition: awakened from anesthesia, extubated [...] (ABNORMAL) Differential, Automated (06/17/2018 4:12 AM EDT) [facility] Method Time Signature Neutrophils % 81.2 % [facility] Neutr Abs (ANC) 10.96 (H) 1.70 - [facility] 6.10 [facility] x10(3)/[facility] LABORATORY Lymphocytes % 10.8 % [facility] Lymphocytes Abs 1.5 0.9 - 3.2 [facility] x10(3)/[facility] LABORATORY Monocytes % 7.3 % [facility] Monocyte Abs 1.0 (H) 0.3 - 0.9 [facility] x10(3)/[facility] LABORATORY Eosinophils % 0.1 % [facility] Eosinophils Abs 0.0 0.0 - 0.4 [facility] x10(3)/[facility] LABORATORY Basophils % 0.1 % [facility] Basophils Abs 0.0 0.0 - 0.1 [facility] x10(3)/[facility] LABORATORY Immature Gran % 0.50 % [facility] Comment: Immature granulocytes(IG's)percentage an d absolute count will include metamyelocytes, myelocytes, and promyelo cytes. Blood smears from CBCs yielding IG's will be scanned manually for concor dance. If this scan disagrees with the automated IG or if promyelocytes are not ed, a manual differential will be performed. Monica Gran Abs 0.07 (H) 0.00 - 0.04 x10(3)/[facility] LABORATORY Specimen Anatomical Collection Method Collection Time Receive d Time (Source) Location / / Volume Laterality Blood specimen 06/17/2018 4:12 AM 019 4:21 (specimen) EDT AM EDT Resulting Agency Comment Spec In Lab Luis No MD HEMATOLOGY ORDERABLES Performing Organization Address City/State/[place] [address] (ABNORMAL) Hemogram (06/17/2018 4:12 AM EDT) Analysis Performed At [facility] logist Time Signature WBC 13.5 (H) 4.0 - 9.5 [facility] x10(3)/[facility] LABORATORY RBC 4.30 (L) 4.58 - [facility] 5.54 [facility] x10(6)/[facility] LABORATORY Hemoglobin 13.3 (L) 13.7 - [facility] 16.[facility] gm/dL [facility] Hematocrit 37.9 (L) 40.5 - [facility] 48.5 % [facility] MCV 88.1 82.9 - [facility] 93.1 [facility] LABORATORY MCH 30.9 27.5 - [facility] 32.1 pg [facility] LABORATORY MCHC 35.1 32.0 - [facility] 35.7 gm/dL [facility] LABOR[facility]ORY Platelets 243 145 - 357 [facility] x10(3)/[facility] LABORATORY RDWSD 42.7 36.0 - [facility] 45.0 [facility] LABORATORY RDWCV 13.2 11.4 - [facility] 13.8 % [facility] LABORATORY MPV 10.5 7.6 - 12.9 [facility] LABORATORY nRBC % Auto 0.0 % [facility] LABOR[facility]ORY nRBC Abs Auto 0.000 0.000 - [facility] 0.000 [facility] x10(3)/[facility] LABORATORY Specimen Anatomical Collection Method Collection Time Receive d Time (Source) Location / / Volume Laterality Blood specimen 06/17/2018 4:12 AM 019 4:21 (specimen) EDT AM EDT Resulting Agency Comment Spec In Lab Luis No MD HEMATOLOGY ORDERABLES Performing Organization Address City/State/[place] [address] Basic Metabolic Panel (non-fasting) (06/17/2018 4:12 AM EDT) P athologist Signature Glucose Lvl 127 65 - 199 [facility] mg/dL [facility] Comment: Diabetes: >=200 mg/dL plus symp toms BUN 11 10 - 20 mg/dL [facility] Creatinine 0.85 0.80 - 1.50 mg/dL [facility] Sodium 135 135 - 145 mmol/L [facility] Potassium 3.9 3.5 - 5.0 mmol/L [facility] Comment: Please note: ??Patients with WBC >100,00 0 may have falsely elevated Potassium levels. ??For accurate Potassium quantif ication in these patients send serum separator tube (gold top) for subsequent determinations. ??Contact the Clinical Chemistry Laboratory if there are any qu estions. Chloride 99 98 - 107 mmol/L [facility] CO2 26 22 - 31 mmol/L [facility] Anion Gap 10 5 - 15 mmol/L [facility] Calcium 8.6 8.5 - 10.5 mg/dL [facility] Estimated GFR 104 >=60 mL/min/1.73 m?? [facility] Comment: The eGFR was calculated using the CKD-EP I equation. As with all creatinine based estimates of kidney function, eGFR values calculated with the CKD-EPI equation are not accurate in patients wi th acute kidney failure, extremes of body mass or the acutely ill. http://[employer]/[facility] eGFR 120 >=60 mL/min/1.73 m?? [facility] Comment: The eGFR was calculated using the CKD-EP I equation. As with all creatinine based estimates of kidney function, eGFR values calculated with the CKD-EPI equation are not accurate in patients wi th acute kidney failure, extremes of body mass or the acutely ill. http://[employer]/[facility]f Specimen Anatomical Collection Method Collection Time Receive d Time (Source) Location / / Volume Laterality Blood specimen 06/17/2018 4:12 AM 019 4:21 (specimen) EDT AM EDT Resulting Agency Comment Spec In Lab Cortney Egan MD CHEMISTRY ORDERABLES Performing Organization Address City/State/[place] [address] XR Tibia Fibula Right [...] please contact e number below. ? Narrative 06/16/2018 3:17 PM EDT EXAMINATION: XR [...] TIBIA FIBULA RIGHT (GENE ZOHAIB) CLINICAL HISTORY: Tibia/fibula fracture, left, open type [...] report, please contact e number below. Cortney PARISH DX ORDERABLES XR Fluoro No Rad <1Hr - OR Use (06/16/2018 10:21 AM EDT) Specimen (Source) Anatomical Location Collection Method / Collectio n Time Received Time / Laterality Volume Narrative RAD - 06/16/2018 10:21 AM EDT This order does not need a radiologist i nterpretation. ?? Cortney PARISH FLUORO ORDERABLES Performing Organization Address City/State/ZIP Code [facility] e Number [place], [place] documented in this encounter Visit Diagnoses Diagnosis S/P Right tib/fib osteotomy, ringed exte rnal fixator placement, 06/16/18 (Dr Egan) - Primary Acquired deformity of right lower leg Other acquired deformity of other parts of limb Tibial deformity, acquired, right Acquired deformity of right lower leg Other acquired deformity of other parts of limb documented in this encounter Admitting Diagnoses Diagnosis Tibial deformity, acquired, right documented in this encounter Administered Medications Inactive Administered Medications - up to 3 most recent administrations Medication Order MAR Action Action Date Dose Rate Site acetaminophen (TYLENOL) tablet Given 06/18/2018 1:05 PM EDT 1,00 0 mg 1,000 mg 1,000 mg, Oral, EVERY 8 HOURS SCHEDULED, First dose on 06/16/18 at 1400, Until Discontinued, Maximum dose of acetaminophen is 4000 mg from all sources in 24 hours., Routine Given 06/18/2018 5:06 AM EDT 1,000 mg Given 06/17/2018 9:00 PM EDT 1,000 mg aspirin chewable tablet 81 mg Given 06/18/2018 2:07 PM EDT 81 mg 81 mg, Oral, 2 TIMES DAILY, 60 doses, First dose on Sat06/18/18 at 1415, Last dose on Pat 07/17/18 at 2100, Routine budesonide-formoterol (SYMBICORT) Given 06/18/2018 8:13 AM EDT 2 Inhalation 80-4.5 mcg/actuation inhaler 2 Inhalation 2 Inhalation, Inhalation, EVERY 12 HOURS SCHEDULED (2 times per day), First dose on Sat06/16/18 at 1415, Until Discontinued, Routine Given 06/17/2018 8:18 AM EDT 2 Inhalation enoxaparin (LOVENOX) injection 40 mg Given 06/17/2018 9:00 PM EDT 40 mg 40 mg, Subcutaneous, NIGHTLY, First dose on Sat06/16/18 at 2100, Until Discontinued, Routine Given 06/16/2018 8:52 PM EDT 40 mg hydroCHLOROthiazide (HYDRODIURIL) tablet 25 mg Given 06/18/2018 [...] pain not relieved in 30-60 minutes., Routine losartan (COZAAR) tablet 50 mg Given 06/18/2018 8:12 AM EDT 50 mg 50 mg, Oral, DAILY, First dose (after last modification) on Sat06/16/18 at 1500, Until Discontinued, Hold sbp<120, Routine Given 06/17/2018 8:18 AM EDT 50 mg Given 06/16/2018 2:47 PM EDT 50 mg ondansetron (ZOFRAN) injection 4 mg Given 06/17/2018 8:25 AM EDT 4 mg 4 mg, Intravenous, EVERY 8 HOURS PRN, Starting on Sat06/16/18 at 1352, Until Sat06/18/18 at 1856, Nausea, If multiple antiemetics are ordered, use ondansetron first, prochlorperazine second, metoclopramide third. Given 06/16/2018 2:23 PM EDT 4 mg pantoprazole (PROTONIX) tablet 40 mg Given 06/18/2018 [...] 11:01 AM EDT 1,000 mLs 100 mL/hr vancomycin (VANCOCIN) injection Given 06/16/2018 9:45 AM EDT 1 g 19- S urgical Site ONCE PRN, Starting on Sat06/16/18 at 0945, Until Sat06/17/18 at 0723, Intra-Operative (Intra-Procedure), Routine documented in this encounter Active and Recently Administered Medications Times are shown in EDT. Scheduled Medication Order 06/16/2018 06/17/2018 06/18/2018 acetaminophen (TYLENOL) tablet 1,000 mg 1317 (Given - Provider: Kelsey Solorzano RN)2200 (Not Given - Provider: Mann Oconnell RN - Reason: Patient/family refused) 07 (Given - Provider: Gemini wallace RN)1329 (Given [...] Routine aspirin chewable tablet 81 mg 14 (Given - Provider: Pema Gruber RN) 81 [...] 1 210 (New Bag - Provider: Kelsey Solorzano, INGRID)1240 (Stopped - Provider: Kelsey Solorzano, RN)2051 (New Bag - Provider: Mann Oconnell [...] 0817 (Given - Provider: Pema Gruber RN) 0812 (Given - Provider: Pema Gruber RN) 25 [...] Mann Oconnell RN - Reason: Patient/family refused) 09 (Not Given - Provider: Pema Gruber RN - Reason: Patient/family refused)2056 (Not Given [...] refused)2052 (Given - Provider: Mann Oconnell RN) 08 (Given - Provider: Pema poon RN)2056 (Not Given - Provider: Yulissa Jackman RN - Reason: Patient/family refused) 811 (Given - Provider: Pema poon RN) 2 [...] RN) 0018 (New Bag - Provider: Gemini Fontenot RN) 1,000 mL, at 100 mL/hr, Intravenous, CON TINUOUS, Starting Sat06/16/18 at 1115, Until Sat06/18/18 at 1856 PRN Medication Order 06/16/2018 06/17/2018 06/18/2018 fentaNYL (PF) 50mcg/mL injection (CANCELED) 0705 (Give n - Provider: Mann Bro RN)0710 (Given - Provider: Mann Bro, INGRID) [...] 1) 0311 (See Alternative - Provider: Gemini Fonetnot RN)0703 (See Alternative - Provider: Gemini Fontenot, INGRID)1329 (Given - Provider: Pema Gruber, INGRID)1850 (Given - Provider: Pema Gruber RN) 0416 (See [...] OMPLETED) 0717 (Given - Provider: Mann Bro, INGRID) 3 mg (0.3 mL), Subcutaneous, ONCE PRN, [...] third. ondansetron (ZOFRAN) injection 4 mg (COMPLETED) 175 ( Given - Provider: Pema Gruber RN) 4 mg, Intravenous, ONCE PRN, 1 dose, Sta rting Sat06/16/18 at 1745, Until Sat06/16/18 at 1751, Nausea oxyCODONE (ROXICODONE) immediate release tablet 10 mg (CANCELED) 1054 (Given - Provider: Kelsey Solorzano, INGRID)1510 (See Alternative - Provider: Pema Gruber RN) 10 mg, Oral, EVERY 4 HOURS PRN, Starting 06/16/18 at 1051, Until Sat06/16/18 at 1816, Pain, moderate pain (4-6), For moderate pain (4-6). Do not exceed 15 mg in 4 hours. If pain not relieved, call provider., Routine oxyCODONE (ROXICODONE) immediate release tablet 5 mg ( CANCELED) 1054 (See Alternative - Provider: Kelsey Solorzano, INGRID)1510 (Given - Provider: Pema Gruber RN) 5 mg, Oral, EVERY 4 HOURS PRN, Starting Sat06/16/18 at 1051, Until Sat06/16/18 at 1816, [...] Sat06/18/18 at 1856, Pain, for moderate pain (4-6)
[...]
Routine documented in this encounter Care Teams Sole Assessor Relationship Specialty Start Date End Date Cresencio Angel DO PCP - General Internal Medicine 04/24/18 [address] [place] [address] documented as of this encounter
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
--- OUTSIDE RECORDS SUMMARY | 2021-11-16 10:48 | XMS_ITS | Encounter Summary ---
:1970 [place] [address] Care Team Providers Name Role Phone Unavailable Primary Care Provider Unavailable Encounter Details Date Type Department Care Team Description 10/18/2015 Ancillary Procedure Radiology Library at Cortney Egan, [facility] [place] [address] ORTHOPAEDIC SURGERY [phone] [place], [place] [address] (Wo rk) Social History Tobacco Use Types Packs/Day Years Used Date Never Assessed Sex Assigned at Date Recorded Not on file documented as of this encounter Plan of Treatment Not on filedocumented as of this encounter Procedures Procedure Name Priority Date/Time Associated Diagnosis Comme nts FILM LIBRARY Routine 10/18/2015 12:00 AM Results for this STORAGE ONLY DX EDT procedure ar e in KNEE the results section. documented in this encounter Results Film Library- Storage Only DX Knee (10/18/2015 12:00 AM EDT) Specimen (Source) Anatomical Location Collection Method / Collectio n Time Received Time / Laterality Volume Narrative MACIEL - 04/23/2018 2:28 PM EST This exam is for storage only and is aut o-finalizing. Cortney Egan MD G FILM LIBRARY ORDERABLES Performing Organization Address City/State/ZIP Code Phon e Number [place], [place] documented in this encounter Visit Diagnoses Not on filedocumented in this encounter
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
--- OUTSIDE RECORDS SUMMARY | 2021-11-16 10:48 | XMS_ITS | Encounter Summary ---
:1970 [place] [address] Care Team Providers Name Role Phone Unavailable Primary Care Provider Unavailable Encounter Details Date Type Department Care Team Description 03/07/2018 Ancillary Procedure Radiology Library at Cortney Egan, [facility] [place] [address] ORTHOPAEDIC SURGERY [phone] [place], [place] [address] (Wo rk) Social History Tobacco Use Types Packs/Day Years Used Date Never Assessed Sex Assigned at Date Recorded Not on file documented as of this encounter Plan of Treatment Not on filedocumented as of this encounter Procedures Procedure Name Priority Date/Time Associated Diagnosis Comme nts FILM LIBRARY Routine 03/07/2018 12:05 AM Results for this STORAGE ONLY DX EST procedure ar e in LOWER EXTREMITY the results section. documented in this encounter Results Film Library- Storage Only DX Lower Extremity (03/07/2018 12:05 AM EST) Specimen (Source) Anatomical Location Collection Method / Collectio n Time Received Time / Laterality Volume Narrative MACIEL - 05/05/2018 5:16 PM EST This exam is for storage only and is aut o-finalizing. Cortney Egan MD G FILM LIBRARY ORDERABLES Performing Organization Address City/State/ZIP Code Phon e Number [place], [place] documented in this encounter Visit Diagnoses Not on filedocumented in this encounter
--- OUTSIDE RECORDS SUMMARY | 2021-11-16 10:48 | XMS_ITS | Encounter Summary ---
:1970 [place] [address] Care Team Providers Name Role Phone Unavailable Primary Care Provider Unavailable Encounter Details Date Type Department Care Team Description 12/03/2006 Ancillary Procedure Radiology Library at Cortney Egan, [facility] [place] [address] ORTHOPAEDIC SURGERY [phone] [place], [place] [address] (Wo rk) Social History Tobacco Use Types Packs/Day Years Used Date Never Assessed Sex Assigned at Date Recorded Not on file documented as of this encounter Plan of Treatment Not on filedocumented as of this encounter Procedures Procedure Name Priority Date/Time Associated Diagnosis Comme nts FILM LIBRARY Routine 12/03/2006 12:00 AM Results for this STORAGE ONLY DX EDT procedure ar e in KNEE the results section. documented in this encounter Results Film Library- Storage Only DX Knee (12/03/2006 12:00 AM EDT) Specimen (Source) Anatomical Location Collection Method / Collectio n Time Received Time / Laterality Volume Narrative MACIEL - 04/23/2018 2:25 PM EST This exam is for storage only and is aut o-finalizing. Cortney Egan MD G FILM LIBRARY ORDERABLES Performing Organization Address City/State/ZIP Code Phon e Number [place], [place] documented in this encounter Visit Diagnoses Not on filedocumented in this encounter
--- OUTSIDE RECORDS SUMMARY | 2021-11-16 10:48 | XMS_ITS | Encounter Summary ---
:1970 [place] [address] Care Team Providers Name Role Phone Unavailable Primary Care Provider Unavailable Encounter Details Date Type Department Care Team Description 03/07/2018 Ancillary Procedure Radiology Library at Cortney Egan, [facility] [place] [facility] [place] [address] ORTHOPAEDIC SURGERY [phone] [place], [place] [address] (Wo rk) Social History Tobacco Use Types Packs/Day Years Used Date Never Assessed Sex Assigned at Date Recorded Not on file documented as of this encounter Plan of Treatment Not on filedocumented as of this encounter Procedures Procedure Name Priority Date/Time Associated Diagnosis Comme [facility] FILM LIBRARY Routine 03/07/2018 12:00 AM Results for this STORAGE ONLY DX EST procedure ar e in KNEE the results section. documented in this encounter Results Film Library- Storage Only DX Knee (03/07/2018 12:00 AM EST) Specimen (Source) Anatomical Location Collection Method / Collectio n Time Received Time / Laterality Volume Narrative MACIEL - 05/05/2018 5:15 PM EST This exam is for storage only and is aut o-finalizing. Cortney Egan MD G FILM LIBRARY ORDERABLES Performing Organization Address City/State/ZIP Code Phon e Number RAD [place], [place] documented in this encounter Visit Diagnoses Not on filedocumented in this encounter
--- OUTSIDE RECORDS SUMMARY | 2021-11-16 10:48 | XMS_ITS | Encounter Summary ---
:1970 [place] [address] Care Team Providers Name Role Phone Unavailable Primary Care Provider Unavailable Encounter Details Date Type Department Care Team Description 02/16/2009 Ancillary Procedure Radiology Library at Cortney Egan, [facility] [place] [address] ORTHOPAEDIC SURGERY [phone] [place], [place] [address] (Wo rk) Social History Tobacco Use Types Packs/Day Years Used Date Never Assessed Sex Assigned at Date Recorded Not on file documented as of this encounter Plan of Treatment Not on filedocumented as of this encounter Procedures Procedure Name Priority Date/Time Associated Diagnosis Comme [facility] FILM LIBRARY Routine 02/16/2009 12:00 AM Results for this STORAGE ONLY DX EST procedure ar e in KNEE the results section. documented in this encounter Results Film Library- Storage Only DX Knee (02/16/2009 12:00 AM EST) Specimen (Source) Anatomical Location Collection Method / Collectio n Time Received Time / Laterality Volume Narrative MACIEL - 04/23/2018 2:27 PM EST This exam is for storage only and is aut o-finalizing. Cortney Egan MD G FILM LIBRARY ORDERABLES Performing Organization Address City/State/ZIP Code Phon e Number RAD [place], [place] documented in this encounter Visit Diagnoses Not on filedocumented in this encounter
--- NOTE | 2021-12-01 16:15 | W.PFT ---
Date of service: 11/14/21 Time of Service: 10:05 Pulmonary Function Test Result Requesting Provider Newton Delgado Indications: Disability determination Interpretation Spirometry: There is no airflow limitation. There is no significant bronchodilator response. There is inspiratory loop blunting. Impression Normal spirometry with inspiratory loop blunting which could suggest vocal cord dysfunction in the correct clinical context. Clinical Correlation therefore is recommended.
== END 2021-11-14 10:44 | disposition home or self-care (01) ==
LOC: RT 11-16 10:44
PROVIDERS: Visit Provider Chiropractor
DX: J45.998 Other asthma; Z02.71 Encounter for disability determination
CPT/HCPCS: 94060